=== PATIENT | female | born 1955 | race Caucasian/White ===

== ENCOUNTER 2016-12-18 10:25 | Emergency (ER) | payer MEDICARE, OTHER ==
[2016-12-18] MEDS ORDERED: Ondansetron 4 MG/2 ML SDV IVPUSH ONE (10:48)
[2016-12-18] MEDS ORDERED: Sodium Chloride 0.9% 10 ML Syringe FLUSH PRN (10:48)
[2016-12-18] MEDS ORDERED: HYDROmorphone 0.5 MG/0.5 ML Syringe IVPUSH ONE (10:53)
[2016-12-18 11:00] VITALS: BP 133/99
[2016-12-18] MEDS ORDERED: Sodium Chloride 0.9% 1,000 ML IV SCH (11:00)
--- NOTE | 2016-12-18 12:53 | EDM.PDOC ---
ED HPI GENERAL MEDICAL PROBLEM - General Chief Complaint: Lower Extremity Injury/Pain Stated Complaint: [facility] Time Seen by Provider: 12/18/16 10:36 Source of Information: Reports: Patient, Provider History Limitations: Reports: No Limitations - History of Present Illness INITIAL COMMENTS - FREE TEXT/NARRATIVE: The patient was brought in by EMS. She is a patient of the [facility]. They found her this morning on the floor. She is wheel chair bound and her chair was found in another room. The last time she was seen was last night. She was complaining of pain in both knees and right hip. She does not have a headache and she has no neck pain. She denies chest pain or abdominal pain. There has been changes to her psych medications and she has been more drowsy lately. They patient has chronic arthritic pain and she has seen Dr Burgos but she is not a candidate for surgery at this time. Onset: Sudden Duration: Day(s): (last night) Location: Reports: Lower Extremity, Left (knee), Lower Extremity, Right (hip and knee) Quality: Reports: Sharp Severity: Moderate Improves with: Reports: None Worsens with: Reports: None Associated Symptoms: Reports: No Other Symptoms Right Hip Pain Score (Numeric/FACES): 7 - Related Data Allergies Allergy/AdvReac Type Severity Reaction Status Date / Time codeine Allergy Mild Itching Verified 12/18/16 10:40 haloperidol [From Haldol] AdvReac Mild Facial Verified 12/18/16 10:40 Spasms lithium [[place]] AdvReac Mild Hallucinati Verified 12/18/16 10:40 ons Home Meds: Home Meds ClonazePAM [KlonoPIN] 0.5 mg PO BEDTIME PRN 10/17/13 [History] Gabapentin [Neurontin] 600 mg PO TID 10/17/13 [History] Potassium Chloride 10 meq PO DAILY 10/17/13 [History] traZODone 125 mg PO BEDTIME 10/17/13 [History] Cholecalciferol (Vitamin D3) [Vitamin D3] 400 unit PO DAILY 06/13/15 [History] oxyCODONE 5 mg PO Q4H PRN 06/13/15 [History] ARIPiprazole [Abilify] 20 mg PO DAILY 08/08/15 [History] Align 1 tab PO TID 08/08/15 [History] Benztropine [Cogentin] 0.5 mg PO BEDTIME 08/08/15 [History] Benztropine [Cogentin] 0.5 mg PO DAILY 08/08/15 [History] Diclofenac Sodium [Voltaren 1% Gel] 2 - 4 gm TOP BID 08/08/15 [History] Gabapentin [Neurontin] 1,200 mg PO BEDTIME 08/08/15 [History] Baclofen 10 mg PO BEDTIME 10/05/15 [History] ClonazePAM [KlonoPIN] 0.25 mg PO BID PRN 10/05/15 [History] Levothyroxine Sodium [Levoxyl] 175 mcg PO DAILY 10/05/15 [History] Lubiprostone [Amitiza] 24 mcg PO BIDMEALS 10/05/15 [History] Nitroglycerin [Nitrostat] 0.4 mg SL DAILY PRN 10/05/15 [History] Sennosides/Docusate Sodium [Senna-Docusate Sodium] 2 tab PO BEDTIME 10/05/15 [ History] Ascorbic Acid [Vitamin C] 500 mg PO TIDMEALS #90 tablet 10/22/15 [Rx] Ferrous Sulfate 325 mg PO TIDMEALS #90 tablet 10/22/15 [Rx] Past Medical History HEENT History: Reports: Cataract Other HEENT History: R eye surgery x 4, wears glasses Cardiovascular History: Reports: High Cholesterol, Hypertension Other Cardiovascular History: heart cath Gastrointestinal History: Reports: Gastritis Other Gastrointestinal History: epigastric pain, duodentitis Genitourinary History: Reports: Urinary Incontinence Other Genitourinary History: dysuria 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 Endocrine/Metabolic History: Reports: Hypothyroidism, Obesity/BMI 30+ Hematologic History: Reports: Anemia - Past Surgical History GI Surgical History: Reports: Cholecystectomy Social & Family History - Family History Family Medical History: Noncontributory Other HEENT Family History: Patient unable to report family medical history. - Tobacco Use Smoking Status *Q: Never Smoker Years of Tobacco use: 15 Packs/Tins Daily: 0.5 Used Tobacco, but Quit: Yes Month Tobacco Last Used: 2004 Second Hand Smoke Exposure: No - Caffeine Use Caffeine Use: Reports: Coffee - Alcohol Use Days Per Week of Alcohol Use: 1 Number of Drinks Per Day: 3 Total Drinks Per Week: 3 - Recreational Drug Use Recreational Drug Use: No Drug Use in Last 12 Months: No Review of Systems - Review of Systems Review Of Systems: See Below Constitutional: Reports: No Symptoms Eyes: Reports: No Symptoms Ears: Reports: No Symptoms Nose: Reports: No Symptoms Mouth/Throat: Reports: No Symptoms Respiratory: Reports: No Symptoms Cardiovascular: Reports: No Symptoms GI/Abdominal: Reports: No Symptoms Genitourinary: Reports: No Symptoms Musculoskeletal: Reports: Other (Right hip and knee pain and left knee pain) ED EXAM, GENERAL - Physical Exam Exam: See Below Exam Limited By: No Limitations General Appearance: Alert, No Apparent Distress Ears: Normal External Exam Nose: Normal Inspection Head: Atraumatic, Normocephalic Neck: Normal Inspection Respiratory/Chest: No Respiratory Distress, Lungs Clear, Normal Breath Sounds Cardiovascular: Regular Rate, Rhythm, No Edema, No Murmur GI/Abdominal: Soft, Non-Tender, No Organomegaly, No Mass Back Exam: Normal Inspection Extremities: Other (Pain upon palpation to both knees. Pain upon palpaton to the right hip. Good sensation and pusles distally.) Course - Vital Signs Last Recorded V/S: Last Vital Signs Temp 98.7 F 12/18/16 10:54 Pulse 71 12/18/16 10:54 Resp 20 12/18/16 10:54 BP 133/99 H 12/18/16 10:54 Pulse Ox 99 12/18/16 10:54 - Orders/Labs/Meds Orders: Active Orders 24 hr Category Date Time Status Cardiac Monitoring [RC] . DIRECTED Care 12/18/16 10:48 Active EKG Documentation Completion [RC] STAT Care 12/18/16 10:52 Active Peripheral IV Care [RC] . DIRECTED Care 12/18/16 10:49 Active Sodium Chloride 0.9% [Normal Saline] 1,000 ml Med 12/18/16 11:00 Active IV ASDIRECTED Sodium Chloride 0.9% [Saline Flush] Med 12/18/16 10:48 Active 10 ml FLUSH ASDIRECTED PRN ED Antiemetic Medication Reflex [OM.PC] Stat Oth 12/18/16 10:48 Ordered Peripheral IV Insertion Adult [OM.PC] Stat Ot 12/18/16 10:48 Ordered Medication Orders Sodium Chloride (Normal Saline) 1,000 mls @ 125 mls/hr IV ASDIRECTED KATHERIN Last Admin: 12/18/16 11:30 Dose: 125 mls/hr Sodium Chloride (Saline Flush) 10 ml FLUSH ASDIRECTED PRN PRN Reason: Keep Vein Open Last Admin: 12/18/16 11:31 Dose: 10 ml Labs: Laboratory Tests 12/18/16 12/18/16 12/18/16 Range/Units 11:38 11:38 11:50 WBC 10.98 H (3.98-10.04) K/mm3 RBC 4.51 (3.98-5.22) M/mm3 Hgb 13.1 (11.2-15.7) gm/L Hct 41.0 (34.1-44.9) % MCV 90.9 (79.4-94.8) fl MCH 29.0 (25.6-32.2) pg MCHC 32.0 L (32.2-35.5) g/dl RDW Std Deviation 50.2 H (36.4-46.3) fL Plt Count 308 (182-369) K/mm3 MPV 9.8 (9.4-12.3) fl Neut % (Auto) 73.8 H (34.0-71.1) % Lymph % (Auto) 18.6 L (19.3-51.7) % [place] % (Auto) 7.1 (4.7-12.5) % Eos % (Auto) 0 L (0.7-5.8) Baso % (Auto) 0.2 (0.1-1.2) % Neut # (Auto) 8.11 H (1.56-6.13) K/mm3 Lymph # (Auto) 2.04 (1.18-3.74) K/mm3 [place] # (Auto) 0.78 H (0.24-0.36) K/mm3 Eos # (Auto) 0.00 L (0.04-0.36) K/mm3 Baso # (Auto) 0.02 (0.01-0.08) K/mm3 Sodium 139 (136-145) mEq/L Potassium 3.6 (3.5-5.1) mEq/L Chloride 101 (98-107) mEq/L Carbon Dioxide 27 (21-32) mEq/L Anion Gap 14.6 (5-15) BUN 20 H (7-18) mg/dL Creatinine 0.8 (0.55-1.02) mg/dL Est Cr Clr Drug Dosing 68.13 mL/min Estimated GFR (MDRD) > 60 (>60) mL/min BUN/Creatinine Ratio 25.0 H (14-18) Glucose 82 (74-106) mg/dL Calcium 9.6 (8.5-10.1) mg/dL Total Bilirubin 0.4 (0.2-1.0) mg/dL AST 21 (15-37) U/L ALT 35 (14-59) U/L Alkaline Phosphatase 60 (46-116) U/L Troponin I < 0.017 (0.00-0.056) ng/mL Total Protein 8.0 (6.4-8.2) g/dl Albumin 2.8 L (3.4-5.0) g/dl Globulin 5.2 gm/dL Albumin/Globulin Ratio 0.5 L (1-2) Urine Color Yellow (Yellow) Urine Appearance Clear (Clear) Urine pH 7.5 (5.0-8.0) Ur Specific Patrick 1.020 (1.005-1.030) Urine Protein Negative (Negative) Urine Glucose (UA) Negative (Negative) Urine Ketones Trace H (Negative) Urine Occult Blood Negative (Negative) Urine Nitrite Negative (Negative) Urine Bilirubin Negative (Negative) Urine Urobilinogen 1.0 (0.2-1.0) Ur Leukocyte Esterase Negative (Negative) Urine RBC Not seen (0-5) /hpf Urine WBC Not seen (0-5) /hpf Ur Epithelial Cells 0-5 (0-5) /hpf Amorphous Sediment Many H (NOT SEEN) /hpf Urine Bacteria Not seen (FEW) /hpf Urine Mucus Not seen (FEW) /hpf Meds: Medications Generic Name Dose Route Start Last Admin Trade Name Freq PRN Reason Stop Dose Admin Sodium Chloride 1,000 mls @ 125 mls/hr 12/18/16 11:00 12/18/16 11:30 Normal Saline IV 125 mls/hr ASDIRECTED KATHERIN Administration Sodium Chloride 10 ml 12/18/16 10:48 12/18/16 11:31 Saline Flush FLUSH 10 ml ASDIRECTED PRN Administration Keep Vein Open Discontinued Medications Generic Name Dose Route Start Last Admin Trade Name Freq PRN Reason Stop Dose Admin Hydromorphone HCl 0.5 mg 12/18/16 10:53 12/18/16 11:31 Dilaudid IVPUSH 12/18/16 10:54 0.5 mg ONETIME ONE Administration Ondansetron HCl 4 mg 12/18/16 10:48 12/18/16 11:28 Zofran IVPUSH 12/18/16 10:49 4 mg ONETIME ONE Administration - Re-Assessments/Exams Free Text/Narrative Re-Assessment/Exam: 12/18/16 13:09 Her EKG shows a NSR at a rate of 70 with no acute changes. The x-ray of her knees shows degenerative changes with nothing acute seen. The x-ray of her right hip shows nothing acute. Her labs look good. Her UA shows no UTI. I will discharge her home. Departure - Departure Time of Disposition: 13:10 Disposition: Home, Self-Care 01 Condition: Good Clinical Impression: Osteoarthritis involving multiple joints on both sides of body Fall Qualifiers: Encounter type: initial encounter Qualified Code(s): W19.XXXA - Unspecified fall, initial encounter - Discharge Information Referrals: John Pierre MD [Primary Care Provider] - Forms: ED Department Discharge Additional Instructions: Continue with your medications. Follow up with your doctor. Please return if you are worse. - My Orders Last 24 Hours: My Active Orders 12/18/16 10:48 Cardiac Monitoring [RC] . DIRECTED Sodium Chloride 0.9% [Saline Flush] 10 ml FLUSH ASDIRECTED PRN ED Antiemetic Medication Reflex [OM.PC] Stat Peripheral IV Insertion Adult [OM.PC] Stat 12/18/16 10:49 Peripheral IV Care [RC] . DIRECTED 12/18/16 10:52 EKG Documentation Completion [RC] STAT 12/18/16 11:00 Sodium Chloride 0.9% [Normal Saline] 1,000 ml IV ASDIRECTED - Assessment/Plan Last 24 Hours: My Active Orders 12/18/16 10:48 Cardiac Monitoring [RC] . DIRECTED Sodium Chloride 0.9% [Saline Flush] 10 ml FLUSH ASDIRECTED PRN ED Antiemetic Medication Reflex [OM.PC] Stat Peripheral IV Insertion Adult [OM.PC] Stat 12/18/16 10:49 Peripheral IV Care [RC] . DIRECTED 12/18/16 10:52 EKG Documentation Completion [RC] STAT 12/18/16 11:00 Sodium Chloride 0.9% [Normal Saline] 1,000 ml IV ASDIRECTED
--- NOTE | 2016-12-18 12:54 | CR ---
Left knee: AP and lateral views of the left knee were obtained. Comparison: Previous left knee exam of 08/27/16. Severe medial and lateral joint space narrowing is noted. Osteophytes are seen off the medial tibial margin. Mild osteophytes are noted off the patella. Patellofemoral joint is narrowed. Osteopenia is seen. No acute fracture or dislocation is seen. Impression: 1. Degenerative change as noted above. Osteopenia is present. 2. Findings are fairly stable from prior exam. Nothing acute is identified. Diagnostic code #3
--- NOTE | 2016-12-18 12:54 | CR ---
Right knee: AP and lateral views of the right knee were obtained. Comparison: Previous right knee study of 08/17/16. Severe medial and lateral joint space narrowing is noted. Subchondral cysts are noted within the lateral joint. Osteophytes are noted off the medial and lateral joints. Osteopenia is seen. Mild osteophytes are noted off the patella. No fracture or dislocation is seen. Impression: 1. Degenerative change as noted above. No significant change is seen from prior exam. Nothing acute is identified. Diagnostic code #3
--- NOTE | 2016-12-18 12:54 | CR ---
Right hip and pelvis: AP view of the pelvis was obtained as well as AP and frog-leg lateral views of the right hip. Comparison: Previous pelvis exam of 03/15/12. Severe joint space narrowing is seen within both hips. This has progressed from prior exam. Degenerative cysts are seen within both hips, larger in size on the left side. Bony structures are osteopenic. Slight degenerative change within the lower lumbar spine is noted. No acute abnormality is noted. Impression: 1. Severe degenerative change within both hips. This finding has worsened from prior pelvis exam. 2. Other incidental findings. Nothing acute is appreciated. Diagnostic code #3
== END 2016-12-18 14:00 | disposition home or self-care (01) ==
LOC: JD.ED 10:25
DX: M19.90 Unspecified osteoarthritis, unspecified site (principal); Z87.891 Personal history of nicotine dependence; Z90.49 Acquired absence of other specified parts of digestive tract; Z86.2 Personal history of diseases of the blood and blood-forming organs and certain disorders involving the immune mechanism; E03.9 Hypothyroidism, unspecified; E66.9 Obesity, unspecified; I10 Essential (primary) hypertension; E78.00 Pure hypercholesterolemia, unspecified; F41.0 Panic disorder [episodic paroxysmal anxiety]; F31.9 Bipolar disorder, unspecified; Z88.5 Allergy status to narcotic agent; W19.XXXA Unspecified fall, initial encounter; Z88.8 Allergy status to other drugs, medicaments and biological substances; Z79.899 Other long term (current) drug therapy
CPT/HCPCS: 36415; 73502; 73560; 80053; 81001; 84484; 85025; 93005; 96361; 96374; 96375; 99285; J1170; J2405; J7040; J7050; P9612; 99283

== ENCOUNTER 2017-08-05 10:07 | Emergency (ER) | payer MEDICARE, MEDICAID ==
[2017-08-05 10:13] VITALS: BP 99/67
[2017-08-05] MEDS ORDERED: HYDROmorphone 1 MG/ML Syringe IM ONE (11:31)
--- NOTE | 2017-08-05 11:31 | EDM.PDOC ---
ED HPI GENERAL MEDICAL PROBLEM - General Chief Complaint: Lower Extremity Injury/Pain Stated Complaint: [facility] Time Seen by Provider: 08/05/17 11:21 Source of Information: Reports: Patient, Old Records History Limitations: Reports: No Limitations - History of Present Illness INITIAL COMMENTS - FREE TEXT/NARRATIVE: 62-year-old female arrives via [facility] for evaluation and treatment of knee pain. She has significant osteoarthritis to both knees. Currently the right knee is causing significant pain for her. She states that it the pain worsened last night. She has been seeing Dr. Burgos and is scheduled to have surgery for a right knee replacement with alfreda and [place]. She is currently on a significant amount of pain medications including fentanyl patch, hydrocodone twice a day, naproxen and gabapentin. She states that she has been using the fentanyl patch as she is currently wearing this but she is unsure what other pain medications she is on. She states that she "just takes whatever is in her box ". She is reporting significant pain in the right knee with radiation up into her thigh. No numbness or tingling in her leg. She also has chronic low back pain. No nausea, vomiting, fevers or chills. Patient uses a wheelchair for mobility around her home. No recent falls or trauma to the knees. Right Knee Pain Score (Numeric/FACES): 10 - Related Data Allergies Allergy/AdvReac Type Severity Reaction Status Date / Time codeine Allergy Mild Itching Verified 12/18/16 10:40 haloperidol [From Haldol] AdvReac Mild Facial Verified 12/18/16 10:40 Spasms lithium [[place]] AdvReac Mild Hallucinati Verified 12/18/16 10:40 ons Home Meds: Home Meds ClonazePAM [KlonoPIN] 0.5 mg PO BEDTIME PRN 10/17/13 [History] Gabapentin [Neurontin] 600 mg PO BID 10/17/13 [History] Potassium Chloride 10 meq PO DAILY 10/17/13 [History] traZODone 150 mg PO BEDTIME 10/17/13 [History] ARIPiprazole [Abilify] 10 mg PO DAILY 08/08/15 [History] Benztropine [Cogentin] 0.5 mg PO DAILY 08/08/15 [History] Benztropine [Cogentin] 0.5 mg PO QAM 08/08/15 [History] Gabapentin [Neurontin] 1,200 mg PO BEDTIME 08/08/15 [History] ClonazePAM [KlonoPIN] 0.5 mg PO TID PRN 10/05/15 [History] Levothyroxine Sodium [Levoxyl] 175 mcg PO DAILY 10/05/15 [History] Lubiprostone [Amitiza] 24 mcg PO BIDMEALS 10/05/15 [History] Nitroglycerin [Nitrostat] 0.4 mg SL DAILY PRN 10/05/15 [History] Sennosides/Docusate Sodium [Senna-Docusate Sodium] 1 tab PO BID 10/05/15 [ History] Alendronate Sodium [Alendronate] 70 mg PO DAILY 08/05/17 [History] Cyclobenzaprine [Flexeril] 10 mg PO BEDTIME 08/05/17 [History] Ferrous Sulfate 325 mg PO BID 08/05/17 [History] Folic Acid 1 mg PO DAILY 08/05/17 [History] Hydrocodone/Acetaminophen [Hydrocodon-Acetaminophen 5-325] 1 tab PO BID [History] Naproxen 375 mg PO BID PRN 08/05/17 [History] Pantoprazole [ProTONIX] 40 mg PO DAILY 08/05/17 [History] Vortioxetine Hydrobromide [Trintellix] 20 mg PO DAILY 08/05/17 [History] fentaNYL [Duragesic] 1 patch TOP Q72H 08/05/17 [History] Past Medical History HEENT History: Reports: Cataract Other HEENT History: R eye surgery x 4, wears glasses Cardiovascular History: Reports: High Cholesterol, Hypertension Other Cardiovascular History: heart cath Respiratory History: Reports: Sleep Apnea Gastrointestinal History: Reports: Gastritis Other Gastrointestinal History: epigastric pain, duodentitis Genitourinary History: Reports: Urinary Incontinence Other Genitourinary History: dysuria 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 Endocrine/Metabolic History: Reports: Hypothyroidism, Obesity/BMI 30+ Hematologic History: Reports: Anemia - Past Surgical History GI Surgical History: Reports: Cholecystectomy Social & Family History - Family History Family Medical History: Noncontributory Other HEENT Family History: Patient unable to report family medical history. - Tobacco Use Smoking Status *Q: Never Smoker Years of Tobacco use: 15 Packs/Tins Daily: 0.5 Used Tobacco, but Quit: Yes Month Tobacco Last Used: 2004 Second Hand Smoke Exposure: No - Caffeine Use Caffeine Use: Reports: Soda - Alcohol Use Days Per Week of Alcohol Use: 1 Number of Drinks Per Day: 3 Total Drinks Per Week: 3 - Recreational Drug Use Recreational Drug Use: No Drug Use in Last 12 Months: No Review of Systems - Review of Systems Review Of Systems: See Below Constitutional: Denies: Chills, Fever GI/Abdominal: Denies: Nausea, Vomiting Musculoskeletal: Reports: Back Pain (chronic), Leg Pain (right), Joint Pain ( bilateral knees, R>L) Neurological: Denies: Numbness, Tingling ED EXAM, GENERAL - Physical Exam Exam: See Below Exam Limited By: No Limitations General Appearance: Alert, WD/WN, Mild Distress, Obese Respiratory/Chest: No Respiratory Distress, Lungs Clear, Normal Breath Sounds Cardiovascular: Normal Peripheral Pulses, Regular Rate, Rhythm, No Murmur Peripheral Pulses: 2+: Posterior Tibial (L), Posterior Tibial (R), Dorsalis Pedis (L), Dorsalis Pedis (R) Extremities: Normal Inspection, Normal Capillary Refill, Other (Reports significant pain even with light touch of the right knee. Range of motion testing deferred due to pain.). No: Joint Swelling, Increased Warmth Neurological: Alert, Normal Cognition Psychiatric: Normal Affect, Normal Mood Skin Exam: Warm, Dry, Normal Color Course - Vital Signs Last Recorded V/S: Last Vital Signs Temp 37.3 C 08/05/17 10:10 Pulse 77 08/05/17 10:10 Resp 18 08/05/17 10:10 BP 99/67 08/05/17 10:10 Pulse Ox 97 08/05/17 10:10 - Orders/Labs/Meds Meds: Medications Discontinued Medications Generic Name Dose Route Start Last Admin Trade Name Freq PRN Reason Stop Dose Admin Hydromorphone HCl 0.5 mg 08/05/17 11:31 Dilaudid IM 08/05/17 11:32 ONETIME ONE Hydromorphone HCl 0.5 mg 08/05/17 11:37 08/05/17 11:46 Dilaudid IVPUSH 08/05/17 11:38 0.5 mg ONETIME ONE Administration Ketorolac Tromethamine 30 mg 08/05/17 11:30 08/05/17 11:43 Toradol IM 08/05/17 11:31 30 mg ONETIME ONE Administration Lidocaine 700 mg 08/05/17 12:33 08/05/17 12:38 Lidoderm 5% TOP 08/05/17 12:34 700 mg ONETIME ONE Administration - Re-Assessments/Exams Free Text/Narrative Re-Assessment/Exam: 08/05/17 12:43 Patient reports her pain is currently a 7 on 10. Per nursing staff. We just applied a lidocaine patch for additional pain relief. consider option of starting her on some prednisone. Do not feel she is a very good candidate for prednisone but given that she is on a significant amount of narcotics already I am hesitant to increase any of her narcotics at this time. She does have follow- up with her primary care on Thursday. 08/05/17 14:01 Patient feels better at this point. We will discharge home. Discharge instructions as documented. Departure - Departure Time of Disposition: 14:02 Disposition: Home, Self-Care 01 Condition: Fair Clinical Impression: Knee pain, Osteoarthritis of knee - Discharge Information Instructions: Knee Pain, Adult Referrals: John Pierre MD [Primary Care Provider] - Jalen Armstrong MD [Physician] - Forms: ED Department Discharge Additional Instructions: Continue with your current medications and plan of care. If you are due for a cortisone shot in your knee make sure you schedule an appointment to have one of these. Follow-up with your primary care provider Thursday as planned. You may wear the lidocaine patch for the next 12 hours. Take this off around 10 PM tonight. Please return to the ER if your symptoms change or worsen.
[2017-08-05] MEDS: Ketorolac 30 MG/ML SDV IM ONE (11:43)
[2017-08-05] MEDS: HYDROmorphone 0.5 MG/0.5 ML SYRINGE IVPUSH ONE (11:46)
[2017-08-05] MEDS: Lidocaine 5% 700 MG Patch TOP ONE (12:38)
== END 2017-08-05 14:41 | disposition home or self-care (01) ==
LOC: JD.ED 10:07
DX: M17.11 Unilateral primary osteoarthritis, right knee (principal); E78.00 Pure hypercholesterolemia, unspecified; I10 Essential (primary) hypertension; E03.9 Hypothyroidism, unspecified; Z88.5 Allergy status to narcotic agent; Z88.8 Allergy status to other drugs, medicaments and biological substances; Z79.899 Other long term (current) drug therapy; Z87.891 Personal history of nicotine dependence
CPT/HCPCS: 96372; 99284; A9270; J1170; J1885

== ENCOUNTER 2017-09-06 19:59 | Emergency (ER) | payer MEDICARE, MEDICAID ==
[2017-09-06 20:09] VITALS: BP 100/52
[2017-09-06] MEDS ORDERED: Ketorolac 60 MG/2 ML SDV IM ONE (21:30)
[2017-09-06] MEDS ORDERED: HYDROmorphone 1 MG/ML Syringe IM ONE (21:30)
--- NOTE | 2017-09-06 21:31 | EDM.PDOC ---
ED HPI GENERAL MEDICAL PROBLEM - General Chief Complaint: Lower Extremity Injury/Pain Stated Complaint: [facility] Time Seen by Provider: 09/06/17 21:20 Source of Information: Reports: Patient, EMS History Limitations: Reports: No Limitations - History of Present Illness INITIAL COMMENTS - FREE TEXT/NARRATIVE: 62-year-old female presents for evaluation treatment of knee pain. Patient arrives via [facility] ambulance [facility]. No treatment prior to arrival. She describes a fall but is unable to tell me exactly when it occurred. At first she 's states it was a couple days ago than it was yesterday evening and it was before she was seen last time in the ER. She denies any head trauma. No headaches, nausea or vomiting. She is currently complaining of pain to her bilateral hips, groin, bilateral knees and low back. patient has a history of osteoarthritis is scheduled to have a knee replacement in the near future with Dr. Burgos. She is currently on a fentanyl patch, gabapentin and pain medications for this. Patient primarily uses a wheelchair to get around due to her knee pain. Patient is a poor historian. Location: Reports: Back, Pelvis, Lower Extremity, Left, Lower Extremity, Right Hip Pain Score (Numeric/FACES): 9 - Related Data Allergies Allergy/AdvReac Type Severity Reaction Status Date / Time codeine Allergy Mild Itching Verified 09/06/17 20:01 haloperidol [From Haldol] AdvReac Mild Facial Verified 09/06/17 20:01 Spasms lithium [[place]] AdvReac Mild Hallucinati Verified 09/06/17 20:01 ons Home Meds: Home Meds Potassium Chloride 10 meq PO DAILY 10/17/13 [History] traZODone 150 mg PO BEDTIME 10/17/13 [History] ARIPiprazole [Abilify] 10 mg PO DAILY 08/08/15 [History] Benztropine [Cogentin] 0.5 mg PO BID 08/08/15 [History] Gabapentin [Neurontin] 1,200 mg PO BID 08/08/15 [History] ClonazePAM [KlonoPIN] 0.5 mg PO TID PRN 10/05/15 [History] Levothyroxine Sodium [Levoxyl] 175 mcg PO DAILY 10/05/15 [History] Lubiprostone [Amitiza] 24 mcg PO BIDMEALS 10/05/15 [History] Nitroglycerin [Nitrostat] 0.4 mg SL DAILY PRN 10/05/15 [History] Sennosides/Docusate Sodium [Senna-Docusate Sodium] 1 tab PO BID 10/05/15 [ History] Alendronate Sodium [Alendronate] 70 mg PO WEEKLY 08/05/17 [History] Cyclobenzaprine [Flexeril] 10 mg PO BEDTIME 08/05/17 [History] Ferrous Sulfate 325 mg PO BID 08/05/17 [History] Folic Acid 1 mg PO DAILY 08/05/17 [History] Hydrocodone/Acetaminophen [Hydrocodon-Acetaminophen 5-325] 1 tab PO BID PRN [History] Naproxen 375 mg PO BID PRN 08/05/17 [History] Pantoprazole [ProTONIX] 40 mg PO DAILY 08/05/17 [History] Vortioxetine Hydrobromide [Trintellix] 20 mg PO DAILY 08/05/17 [History] fentaNYL [Duragesic] 1 patch TOP Q72H 08/05/17 [History] Past Medical History HEENT History: Reports: Cataract Other HEENT History: R eye surgery x 4, wears glasses Cardiovascular History: Reports: High Cholesterol, Hypertension Other Cardiovascular History: heart cath Respiratory History: Reports: Sleep Apnea Gastrointestinal History: Reports: Gastritis Other Gastrointestinal History: epigastric pain, duodentitis Genitourinary History: Reports: Urinary Incontinence Other Genitourinary History: dysuria 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 Endocrine/Metabolic History: Reports: Hypothyroidism, Obesity/BMI 30+ Hematologic History: Reports: Anemia - Past Surgical History GI Surgical History: Reports: Cholecystectomy Social & Family History - Family History Family Medical History: Noncontributory Other HEENT Family History: Patient unable to report family medical history. - Tobacco Use Smoking Status *Q: Never Smoker Years of Tobacco use: 15 Packs/Tins Daily: 0.5 Used Tobacco, but Quit: Yes Month/Year Tobacco Last Used: 2004 Second Hand Smoke Exposure: No - Caffeine Use Caffeine Use: Reports: Coffee, Soda, Tea Other Caffeine Use: occassionally - Alcohol Use Days Per Week of Alcohol Use: 1 Number of Drinks Per Day: 3 Total Drinks Per Week: 3 - Recreational Drug Use Recreational Drug Use: No Drug Use in Last 12 Months: No Review of Systems - Review of Systems Review Of Systems: See Below GI/Abdominal: Denies: Nausea, Vomiting Musculoskeletal: Reports: Back Pain, Joint Pain (bilateral knee pain), Other ( reports bilateral hip and bilateral groin pain) Neurological: Denies: Headache, Syncope ED EXAM, GENERAL - Physical Exam Exam: See Below Exam Limited By: No Limitations General Appearance: Alert, WD/WN, No Apparent Distress, Obese Respiratory/Chest: No Respiratory Distress, Lungs Clear, Normal Breath Sounds Cardiovascular: Normal Peripheral Pulses, Regular Rate, Rhythm, No Murmur Peripheral Pulses: 2+: Dorsalis Pedis (L), Dorsalis Pedis (R) Back Exam: Normal Inspection. No: Paraspinal Tenderness, Vertebral Tenderness Extremities: Normal Inspection, Normal Capillary Refill, Other (joint effusions to thebilateral knees, no obvious deformity, chronic arthritic chagnes to the bilateral knees, reduced flexion and extenesion - knees flexed at 90 degrees pain with any ROM of the knees; no pain with rotation of t he bilateral hips). No: Increased Warmth, Redness Neurological: Alert, Oriented, Normal Cognition Psychiatric: Normal Affect, Normal Mood Skin Exam: Warm, Dry, Normal Color. No: Erythema, Increased Warmth Course - Vital Signs Last Recorded V/S: Last Vital Signs Temp 36.4 C 09/06/17 20:04 Pulse 81 09/06/17 20:04 Resp 18 09/06/17 20:04 BP 100/52 L 09/06/17 20:04 Pulse Ox 97 09/06/17 20:04 - Orders/Labs/Meds Meds: Medications Discontinued Medications Generic Name Dose Route Start Last Admin Trade Name Freq PRN Reason Stop Dose Admin Hydromorphone HCl 1 mg 09/06/17 21:30 Dilaudid IM 09/06/17 21:31 ONETIME ONE Hydromorphone HCl Confirm 09/06/17 21:50 09/06/17 21:51 Dilaudid Administered 09/06/17 21:51 Not Given Dose 1 mg .ROUTE .STK-MED ONE Hydromorphone HCl 1 mg 09/06/17 21:50 09/06/17 21:51 Dilaudid IM 09/06/17 21:51 1 mg ONETIME ONE Administration Ketorolac Tromethamine 60 mg 09/06/17 21:30 09/06/17 21:47 Toradol IM 09/06/17 21:31 60 mg ONETIME ONE Administration - Re-Assessments/Exams Free Text/Narrative Re-Assessment/Exam: 09/06/17 22:53 I reviewed the imaging with the patient. No acute fractures. Chronic arthritic changes in the lumbar spine, bilateral knees and bilateral hips. Recommend continuing on the pain medication as prescribed. Discuss with your pain clinic if you need adjustments. pain has improved with medication today. discharge instructions as documented. Departure - Departure Time of Disposition: 22:57 Disposition: Home, Self-Care 01 Condition: Fair Clinical Impression: Osteoarthritis involving multiple joints on both sides of body - Discharge Information Instructions: Osteoarthritis Referrals: PCP,None [Primary Care Provider] - Jalen Armstrong MD [Physician] - Forms: ED Department Discharge Additional Instructions: Continue with your current plan of care. Continue with your pain medications. Consult your pain specialist if you need an increase in these. Follow-up with your primary care provider within 2 weeks for recheck of your symptoms. Please return to the ER if your symptoms change or worsen.
[2017-09-06] MEDS ORDERED: HYDROmorphone 0.5 MG/0.5 ML SYRINGE ONE (21:50)
[2017-09-06] MEDS ORDERED: HYDROmorphone 0.5 MG/0.5 ML SYRINGE IM ONE (21:50)
--- NOTE | 2017-09-07 09:33 | CR ---
Right knee: AP and lateral views of the right knee were obtained. Comparison: Previous right knee exam of 12/18/16. Severe medial and lateral joint space narrowing is seen. Osteophytes are noted off medial and lateral joints as well as osteophytes off the patella. No discrete joint effusion is seen. Osteopenia is present. No definite acute bony abnormality is appreciated. Impression: 1. Degenerative change and osteopenia. 2. Nothing acute is definitely seen. Diagnostic code #3
--- NOTE | 2017-09-07 09:33 | CR ---
Lumbar spine: AP, lateral and coned-down lateral views centered to the lumbosacral junction were obtained. Comparison: Prior CT lumbar spine exam of 03/22/14. Mild disc space narrowing is noted at L3-L4 and L5-S1. Posterior disc space narrowing noted at L4-L5. Scattered endplate osteophytes are seen. Vertebral body heights are maintained. Pedicles as well as visualized transverse and spinous processes are intact. Surgical clips are seen within the upper abdomen on both sides. No fracture or abnormal subluxation is seen. Impression: 1. Degenerative change as noted above. Findings are fairly stable from previous CT exam. 2. Nothing acute is appreciated. Diagnostic code #2
--- NOTE | 2017-09-07 09:33 | CR ---
Pelvis: AP view of the pelvis was obtained. Comparison: Previous pelvis and right hip study of 12/18/16. Severe joint space narrowing is noted within both hips. Findings worse on the right side. Degenerative cysts are noted within the right femoral head. Bony structures are osteopenic. No acute abnormality is appreciated. Impression: 1. Degenerative change is noted within both hips and osteopenia. 2. Nothing acute is appreciated. Diagnostic code #3
--- NOTE | 2017-09-07 09:33 | CR ---
Left knee: AP and lateral views of the left knee were obtained. Comparison: Previous left knee exam of 12/18/16. Severe medial and lateral joint space narrowing is noted. Osteophytes are seen off the medial and lateral tibial margins. Osteophytes are noted about the patellar margins. Bony structures are osteoporotic. Joint effusion is seen. No acute bony abnormality is identified. Impression: 1. Diffuse degenerative change and osteopenia. 2. Joint effusion. 3. No acute bony abnormality is appreciated. Diagnostic code #3
== END 2017-09-06 23:03 | disposition home or self-care (01) ==
LOC: JD.ED 19:59
DX: M17.0 Bilateral primary osteoarthritis of knee (principal); M16.0 Bilateral primary osteoarthritis of hip; M47.9 Spondylosis, unspecified; I10 Essential (primary) hypertension; E78.00 Pure hypercholesterolemia, unspecified; Z87.891 Personal history of nicotine dependence; Z79.899 Other long term (current) drug therapy; Z88.5 Allergy status to narcotic agent; Z88.8 Allergy status to other drugs, medicaments and biological substances
CPT/HCPCS: 72100; 72170; 73560; 96372; 99284; J1170; J1885; 99283

== ENCOUNTER 2017-09-28 08:57 | Emergency (ER) | payer MEDICARE, MEDICAID ==
[2017-09-28 09:03] VITALS: BP 132/99
[2017-09-28] MEDS ORDERED: Sodium Chloride 0.9% 10 ML Syringe FLUSH PRN (09:06)
--- NOTE | 2017-09-28 09:07 | EDM.PDOC ---
ED HPI GENERAL MEDICAL PROBLEM - General Chief Complaint: Gastrointestinal Problem Stated Complaint: [facility] Time Seen by Provider: 09/28/17 10:00 Source of Information: Reports: Patient, RN Notes Reviewed - History of Present Illness INITIAL COMMENTS - FREE TEXT/NARRATIVE: 8-year-old female comes in with abdominal pain nausea vomiting diarrhea. She states this all started about 34 days ago. He continues to have frequent watery diarrhea after eating or drinking. She's not been vomiting this morning but continues to feel nauseated. And vomiting some the last couple of days off and on. Generalized abdominal pain and cramping. No cough, chest pain or difficulty breathing. She states there has been some blood with the diarrhea. Abdominal Pain Score (Numeric/FACES): 7 - Related Data Allergies Allergy/AdvReac Type Severity Reaction Status Date / Time codeine Allergy Mild Itching Verified 09/28/17 09:03 haloperidol [From Haldol] AdvReac Mild Facial Verified 09/28/17 09:03 Spasms lithium [[place]] AdvReac Mild Hallucinati Verified 09/28/17 09:03 ons Home Meds: Home Meds Potassium Chloride 10 meq PO DAILY 10/17/13 [History] traZODone 150 mg PO BEDTIME 10/17/13 [History] ARIPiprazole [Abilify] 10 mg PO DAILY 08/08/15 [History] Benztropine [Cogentin] 0.5 mg PO BID 08/08/15 [History] Gabapentin [Neurontin] 1,200 mg PO BID 08/08/15 [History] ClonazePAM [KlonoPIN] 0.5 mg PO TID PRN 10/05/15 [History] Levothyroxine Sodium [Levoxyl] 175 mcg PO DAILY 10/05/15 [History] Lubiprostone [Amitiza] 24 mcg PO BIDMEALS 10/05/15 [History] Nitroglycerin [Nitrostat] 0.4 mg SL DAILY PRN 10/05/15 [History] Sennosides/Docusate Sodium [Senna-Docusate Sodium] 1 tab PO BID 10/05/15 [ History] Alendronate Sodium [Alendronate] 70 mg PO WEEKLY 08/05/17 [History] Cyclobenzaprine [Flexeril] 10 mg PO BEDTIME 08/05/17 [History] Ferrous Sulfate 325 mg PO BID 08/05/17 [History] Folic Acid 1 mg PO DAILY 08/05/17 [History] Hydrocodone/Acetaminophen [Hydrocodon-Acetaminophen 5-325] 1 tab PO BID PRN [History] Naproxen 375 mg PO BID PRN 08/05/17 [History] Pantoprazole [ProTONIX] 40 mg PO DAILY 08/05/17 [History] Vortioxetine Hydrobromide [Trintellix] 20 mg PO DAILY 08/05/17 [History] fentaNYL [Duragesic] 1 patch TOP Q72H 08/05/17 [History] Ondansetron [Zofran ODT] 4 mg PO Q8HR PRN #7 tab.dis 09/28/17 [Rx] Past Medical History HEENT History: Reports: Cataract Other HEENT History: R eye surgery x 4, wears glasses Cardiovascular History: Reports: High Cholesterol, Hypertension Other Cardiovascular History: heart cath Respiratory History: Reports: Sleep Apnea Gastrointestinal History: Reports: Gastritis Other Gastrointestinal History: epigastric pain, duodentitis Genitourinary History: Reports: Urinary Incontinence Other Genitourinary History: dysuria 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 Endocrine/Metabolic History: Reports: Hypothyroidism, Obesity/BMI 30+ Hematologic History: Reports: Anemia - Past Surgical History GI Surgical History: Reports: Cholecystectomy Social & Family History - Family History Family Medical History: Noncontributory Other HEENT Family History: Patient unable to report family medical history. - Tobacco Use Smoking Status *Q: Never Smoker Years of Tobacco use: 15 Packs/Tins Daily: 0.5 Used Tobacco, but Quit: Yes Month/Year Tobacco Last Used: 2004 Second Hand Smoke Exposure: No - Caffeine Use Caffeine Use: Reports: Coffee, Soda, Tea Other Caffeine Use: occassionally - Alcohol Use Days Per Week of Alcohol Use: 1 Number of Drinks Per Day: 3 Total Drinks Per Week: 3 - Recreational Drug Use Recreational Drug Use: No Drug Use in Last 12 Months: No ED ROS GENERAL - Review of Systems Review Of Systems: See Below Constitutional: Reports: Chills. Denies: Fever HEENT: Denies: Throat Pain Respiratory: Denies: Shortness of Breath, Pleuritic Chest Pain Cardiovascular: Denies: Chest Pain GI/Abdominal: Reports: Abdominal Pain, Diarrhea, Nausea, Vomiting Musculoskeletal: Reports: Joint Pain (Her right knee has been giving her trouble for quite some time, states she is scheduled for an injection tomorrow) Skin: Reports: No Symptoms Neurological: Reports: Dizziness (Mild). Denies: Trouble Speaking ED EXAM, GI/ABD - Physical Exam Exam: See Below General Appearance: Alert, No Apparent Distress Throat/Mouth: Normal Inspection, Normal Oropharynx Head: Atraumatic. No: Facial Swelling Neck: Supple, Full Range of Motion Respiratory/Chest: No Respiratory Distress, Lungs Clear, Normal Breath Sounds Cardiovascular: Regular Rate, Rhythm GI/Abdominal Exam: Soft, Tender (Mild diffuse tenderness, no guarding or rebound ) Rectal (Female) Exam: Other (Trace of brown stool present, heme-negative) Back Exam: No: CVA Tenderness (L), CVA Tenderness (R) Extremities: Normal Inspection, Normal Range of Motion, Other (Knee nontender, not warm swollen or erythematous, mild pain with motion). No: Leg Pain Neurological: Alert, No Motor/Sensory Deficits Skin Exam: Warm, Dry, Normal Color Course - Vital Signs Last Recorded V/S: Last Vital Signs Temp 98.8 F 09/28/17 09:00 Pulse 98 09/28/17 09:00 Resp 17 09/28/17 09:00 BP 132/99 H 09/28/17 09:00 Pulse Ox 95 09/28/17 09:00 - Orders/Labs/Meds Orders: Active Orders 24 hr Category Date Time Status Peripheral IV Care [RC] . DIRECTED Care 09/28/17 09:07 Active Peripheral IV Insertion Adult [OM.PC] Stat Oth 09/28/17 09:06 Ordered Labs: Laboratory Tests 09/28/17 09/28/17 Range/Units 09:10 09:10 WBC 10.36 H (3.98-10.04) K/mm3 RBC 4.69 (3.98-5.22) M/mm3 Hgb 11.5 (11.2-15.7) gm/L Hct 38.8 (34.1-44.9) % MCV 82.7 (79.4-94.8) fl MCH 24.5 L (25.6-32.2) pg MCHC 29.6 L (32.2-35.5) g/dl RDW Std Deviation 53.7 H (36.4-46.3) fL Plt Count 435 H (182-369) K/mm3 MPV 10.1 (9.4-12.3) fl Neut % (Auto) 70.8 (34.0-71.1) % Lymph % (Auto) 22.5 (19.3-51.7) % [place] % (Auto) 5.7 (4.7-12.5) % Eos % (Auto) 0.4 L (0.7-5.8) Baso % (Auto) 0.3 (0.1-1.2) % Neut # (Auto) 7.34 H (1.56-6.13) K/mm3 Lymph # (Auto) 2.33 (1.18-3.74) K/mm3 [place] # (Auto) 0.59 H (0.24-0.36) K/mm3 Eos # (Auto) 0.04 (0.04-0.36) K/mm3 Baso # (Auto) 0.03 (0.01-0.08) K/mm3 Manual Slide Review Normal smear Sodium 138 (136-145) mEq/L Potassium 3.4 L (3.5-5.1) mEq/L Chloride 102 (98-107) mEq/L Carbon Dioxide 24 (21-32) mEq/L Anion Gap 15.4 H (5-15) BUN 14 (7-18) mg/dL Creatinine 0.7 (0.55-1.02) mg/dL Est Cr Clr Drug Dosing 76.90 mL/min Estimated GFR (MDRD) > 60 (>60) mL/min BUN/Creatinine Ratio 20.0 H (14-18) Glucose 113 H (74-106) mg/dL Calcium 9.8 (8.5-10.1) mg/dL Total Bilirubin 0.3 (0.2-1.0) mg/dL AST 14 L (15-37) U/L ALT 12 L (14-59) U/L Alkaline Phosphatase 69 (46-116) U/L Total Protein 8.2 (6.4-8.2) g/dl Albumin 2.8 L (3.4-5.0) g/dl Globulin 5.4 gm/dL Albumin/Globulin Ratio 0.5 L (1-2) Meds: Medications Discontinued Medications Generic Name Dose Route Start Last Admin Trade Name Freq PRN Reason Stop Dose Admin Famotidine 20 mg 09/28/17 09:33 09/28/17 09:40 Pepcid IVPUSH 09/28/17 09:34 20 mg ONETIME ONE Administration Sodium Chloride 1,000 mls @ 999 mls/hr 09/28/17 09:15 09/28/17 09:26 Normal Saline IV 999 mls/hr ONETIME KATHERIN Administration Ondansetron HCl 4 mg 09/28/17 09:33 09/28/17 09:40 Zofran IVPUSH 09/28/17 09:34 4 mg ONETIME ONE Administration Sodium Chloride 10 ml 09/28/17 09:06 09/28/17 09:26 Saline Flush FLUSH 10 ml ASDIRECTED PRN Administration Keep Vein Open - Re-Assessments/Exams Free Text/Narrative Re-Assessment/Exam: 09/28/17 13:15. Labs all came back relatively normal. We did give 1 L of normal saline and also Zofran 4 mg IV. There's been no further vomiting while here in the ED. I also not aware of any further diarrhea. On rectal exam as noted there is just a trace of brown stool, heme-negative. No gross blood. She was feeling better after the IV fluid and meds. She feels up to going home. Discharge instructions as documented. Departure - Departure Time of Disposition: 11:47 Disposition: Home, Self-Care 01 Condition: Fair Clinical Impression: Diarrhea Vomiting Qualifiers: Vomiting type: unspecified Vomiting Intractability: non-intractable Nausea presence: with nausea Qualified Code(s): R11.2 - Nausea with vomiting, unspecified - Discharge Information Prescriptions: Ondansetron [Zofran ODT] 4 mg PO Q8HR PRN #7 tab.dis PRN Reason: Nausea/Vomiting Instructions: Diarrhea, Adult, Vomiting, Adult Referrals: PCP,None [Primary Care Provider] - Forms: ED Department Discharge Additional Instructions: Rest, clear liquids until this evening, then very careful bland diet as tolerated, Zofran dissolvable under the tongue if needed for any further nausea or vomiting, begin probiotic, take that 2 or 3 times daily for the next week to help you recover from the diarrhea more quickly, follow-up clinic if not much better within 2-3 days as expected, return to ED as needed if symptoms worsening in any way. - My Orders Last 24 Hours: My Active Orders 09/28/17 09:06 Peripheral IV Insertion Adult [OM.PC] Stat 09/28/17 09:07 Peripheral IV Care [RC] . DIRECTED - Assessment/Plan Last 24 Hours: My Active Orders 09/28/17 09:06 Peripheral IV Insertion Adult [OM.PC] Stat 09/28/17 09:07 Peripheral IV Care [RC] . DIRECTED
[2017-09-28] MEDS ORDERED: Sodium Chloride 0.9% 1,000 ML IV SCH (09:15)
[2017-09-28] MEDS ORDERED: Ondansetron 4 MG/2 ML SDV IVPUSH ONE (09:33)
[2017-09-28] MEDS ORDERED: Famotidine 20 MG/2 ML SDV IVPUSH ONE (09:33)
== END 2017-09-28 12:32 | disposition home or self-care (01) ==
LOC: JD.ED 08:57
DX: R11.2 Nausea with vomiting, unspecified (principal); R19.7 Diarrhea, unspecified; E78.00 Pure hypercholesterolemia, unspecified; I10 Essential (primary) hypertension; E03.9 Hypothyroidism, unspecified; D64.9 Anemia, unspecified; Z88.5 Allergy status to narcotic agent; Z88.8 Allergy status to other drugs, medicaments and biological substances; Z91.048 Other nonmedicinal substance allergy status; Z79.899 Other long term (current) drug therapy; Z90.49 Acquired absence of other specified parts of digestive tract
CPT/HCPCS: 36415; 80053; 85025; 96361; 96374; 96375; 99284; J2405; J7040; J7050

== ENCOUNTER 2018-02-13 12:02 | Emergency (ER) | payer MEDICARE, MEDICAID ==
[2018-02-13 12:08] VITALS: BP 131/73
--- NOTE | 2018-02-13 12:39 | EDM.PDOC ---
ED HPI GENERAL MEDICAL PROBLEM - General Chief Complaint: Upper Extremity Injury/Pain Stated Complaint: [facility] Time Seen by Provider: 02/13/18 12:09 Source of Information: Reports: Patient History Limitations: Reports: No Limitations - History of Present Illness INITIAL COMMENTS - FREE TEXT/NARRATIVE: 62-year-old female history of arthritis presenting with a ground-level mechanical fall. Patient has very severe arthritis and difficulty and bleeding at home so she uses a wheelchair. she went to sit down in a wheelchair today brakes were not on it rolled backwards and she fell onto her bottom. After the fall she noted immediate onset of right hip and right shoulder pain. She had a life alert which alerted EMS. In route she received 1 mg of Dilaudid IV by from EMS. Patient is currently complaining of mild to moderate right hip and shoulder pain exacerbated by movement palliative by rest she denies any numbness or tingling in the extremities distal to the injuries. - Related Data Allergies Allergy/AdvReac Type Severity Reaction Status Date / Time codeine Allergy Mild Itching Verified 09/28/17 09:03 haloperidol [From Haldol] AdvReac Mild Facial Verified 09/28/17 09:03 Spasms lithium [[place]] AdvReac Mild Hallucinati Verified 09/28/17 09:03 ons Home Meds: Home Meds Potassium Chloride 10 meq PO DAILY 10/17/13 [History] traZODone 150 mg PO BEDTIME 10/17/13 [History] ARIPiprazole [Abilify] 10 mg PO DAILY 08/08/15 [History] Benztropine [Cogentin] 0.5 mg PO BID 08/08/15 [History] Gabapentin [Neurontin] 1,200 mg PO BID 08/08/15 [History] ClonazePAM [KlonoPIN] 0.5 mg PO TID PRN 10/05/15 [History] Levothyroxine Sodium [Levoxyl] 175 mcg PO DAILY 10/05/15 [History] Lubiprostone [Amitiza] 24 mcg PO BIDMEALS 10/05/15 [History] Nitroglycerin [Nitrostat] 0.4 mg SL DAILY PRN 10/05/15 [History] Sennosides/Docusate Sodium [Senna-Docusate Sodium] 1 tab PO BID 10/05/15 [ History] Alendronate Sodium [Alendronate] 70 mg PO WEEKLY 08/05/17 [History] Cyclobenzaprine [Flexeril] 10 mg PO BEDTIME 08/05/17 [History] Ferrous Sulfate 325 mg PO BID 08/05/17 [History] Folic Acid 1 mg PO DAILY 08/05/17 [History] Hydrocodone/Acetaminophen [Hydrocodon-Acetaminophen 5-325] 1 tab PO BID PRN [History] Naproxen 375 mg PO BID PRN 08/05/17 [History] Pantoprazole [ProTONIX] 40 mg PO DAILY 08/05/17 [History] Vortioxetine Hydrobromide [Trintellix] 20 mg PO DAILY 08/05/17 [History] fentaNYL [Duragesic] 1 patch TOP Q72H 08/05/17 [History] Ondansetron [Zofran ODT] 4 mg PO Q8HR PRN #7 tab.dis 09/28/17 [Rx] Past Medical History HEENT History: Reports: Cataract Other HEENT History: R eye surgery x 4, wears glasses Cardiovascular History: Reports: High Cholesterol, Hypertension Other Cardiovascular History: heart cath Respiratory History: Reports: Sleep Apnea Gastrointestinal History: Reports: Gastritis Other Gastrointestinal History: epigastric pain, duodentitis Genitourinary History: Reports: Urinary Incontinence Other Genitourinary History: dysuria 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 Endocrine/Metabolic History: Reports: Hypothyroidism, Obesity/BMI 30+ Hematologic History: Reports: Anemia - Past Surgical History GI Surgical History: Reports: Cholecystectomy Social & Family History - Family History Family Medical History: Noncontributory Other HEENT Family History: Patient unable to report family medical history. - Caffeine Use Caffeine Use: Reports: Coffee, Soda, Tea Other Caffeine Use: occassionally Review of Systems - Review of Systems Review Of Systems: See Below Constitutional: Reports: No Symptoms Ears: Reports: No Symptoms Nose: Reports: No Symptoms Cardiovascular: Reports: No Symptoms GI/Abdominal: Reports: No Symptoms Musculoskeletal: Reports: Other (Right shoulder, right hip pain) ED EXAM, GENERAL - Physical Exam Exam: See Below Exam Limited By: No Limitations General Appearance: No Apparent Distress Head: Atraumatic, Normocephalic Neck: Normal Inspection, Supple, Non-Tender, Full Range of Motion Respiratory/Chest: No Respiratory Distress, Lungs Clear, Normal Breath Sounds Cardiovascular: Normal Peripheral Pulses, Regular Rate, Rhythm, No Edema GI/Abdominal: Normal Bowel Sounds, Soft, Non-Tender Extremities: Other (Tenderness palpation of the right hip pelvis stable. Tenderness to palpation of the right shoulder the patient has full range of motion.) Neurological: Alert, Oriented, CN II-XII Intact, Normal Cognition, No Motor/ Sensory Deficits Psychiatric: Normal Affect, Normal Mood Course - Vital Signs Last Recorded V/S: Last Vital Signs Temp 36.7 C 02/13/18 12:07 Pulse 88 02/13/18 12:07 Resp 20 02/13/18 12:07 BP 131/73 02/13/18 12:07 Pulse Ox 98 02/13/18 12:07 - Re-Assessments/Exams Free Text/Narrative Re-Assessment/Exam: 02/13/18 12:41 8-year-old female presenting after a ground-level mechanical fall. On initial evaluation patient appeared in no acute distress. Vital signs are normal. Physical exam no rash or right hip to palpation. Plan right now is to obtain plain films of the right shoulder right hip Plain films show no acute fracture or dislocation by my interpretation. There were findings consistent with severely advanced arthritis. I reviewed the findings with the patient. Patient was ambulated at bedside and can transfer as she normally does at home. I did relate my concern to the patient regarding her safety in her home. She does live alone. She has family lives in other states. Patient states that she will be more accepting of help. She currently has assistance that comes into the home several times per week. She will discuss with her family once she is home further measures such as a jail or perhaps moving in with them. At this time until the patient is safe for discharge home and she wishes to be discharged home. She does not wish to be admitted to the hospital and I see no reason to admit her at this time. Departure - Departure Time of Disposition: 16:13 Disposition: Home, Self-Care 01 Condition: Fair Clinical Impression: Arthritis Fall Qualifiers: Encounter type: initial encounter Qualified Code(s): W19.XXXA - Unspecified fall, initial encounter - Discharge Information *PRESCRIPTION DRUG MONITORING PROGRAM REVIEWED*: No *COPY OF PRESCRIPTION DRUG MONITORING REPORT IN PATIENT ARACELY: No Instructions: Osteoarthritis Referrals: Jalen Armstrong MD [Primary Care Provider] - Forms: ED Department Discharge Additional Instructions: You were seen today in the ED for a fall at home. Your xrays don't show any serious injury. Please be extra careful this weekend while you're at home. You should consider moving into an assisted living facility.
--- NOTE | 2018-02-16 14:07 | CR ---
Pelvis and right hip: AP view of the pelvis is obtained as well as AP and frog-leg lateral views of the right hip. Comparison: Previous pelvis and right hip study of 12/18/16. Thinning of the medial acetabular wall is noted on both sides. Significant acetabular protrusio is noted on the right side. Lesser acetabular protrusio is seen on the left side. Bony structures are osteopenic. Degenerative change is partially seen within the lumbar spine. Nothing acute is appreciated. Impression: 1. 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 These findings are an interval change from prior exam. Medial acetabular clifford are extremely thin and difficult to exclude fracture on this study. 2. Osteopenia and degenerative change as noted above. Diagnostic code #3
--- NOTE | 2018-02-16 14:07 | CR ---
Right shoulder: Three views of the right shoulder were obtained. Comparison: No prior shoulder exam. Humeral head is subluxed superiorly and difficult to exclude a rotator cuff tear. Acromioclavicular joint appears within normal limits. No fracture or other abnormality is seen. Impression: 1. Difficult to exclude rotator cuff tear. 2. Right shoulder study is otherwise unremarkable. No acute bony abnormality is identified. Diagnostic code #2
== END 2018-02-13 16:20 | disposition home or self-care (01) ==
LOC: JD.ED 12:02 → SUPCPDRO 12:02 → JD.ED 16:20
DX: M19.90 Unspecified osteoarthritis, unspecified site (principal); I10 Essential (primary) hypertension; E66.9 Obesity, unspecified; Z88.5 Allergy status to narcotic agent; Z79.899 Other long term (current) drug therapy; W19.XXXA Unspecified fall, initial encounter
CPT/HCPCS: 73030-26-RT; 73030-RT; 73502-26-RT; 73502-RT; 99283; 99285

== ENCOUNTER 2018-02-25 15:20 | Emergency (ER) | payer MEDICARE, MEDICAID ==
[2018-02-25 15:38] VITALS: BP 81/37
[2018-02-25] MEDS ORDERED: HYDROmorphone 1 MG/ML Syringe IM ONE (15:58)
--- NOTE | 2018-02-25 16:02 | EDM.PDOC ---
ED HPI GENERAL MEDICAL PROBLEM - General Chief Complaint: General Stated Complaint: [facility] Time Seen by Provider: 02/25/18 15:50 Source of Information: Reports: Patient History Limitations: Reports: No Limitations - History of Present Illness INITIAL COMMENTS - FREE TEXT/NARRATIVE: Patient is a 62-year-old female presents ED complaining of right shoulder, right hip, right upper leg, and right knee pain. States pain started approximately 3 days ago with unclear etiology. States she fell about 1-2 weeks ago was evaluated by PCP with instructions to continue taking all medications as prescribed. Again unclear what aggravated the symptoms 3 days ago. Patient does have a history of fibromyalgia and is on chronic pain medications. She is on baclofen, Voltaren, meloxicam, fentanyl, gabapentin, Flexeril, for the chronic pain syndrome. She denies any recent fall or activities that would have precipitated the pain. Generalized Pain Score (Numeric/FACES): 10 - Related Data Allergies Allergy/AdvReac Type Severity Reaction Status Date / Time codeine Allergy Mild Itching Verified 02/25/18 15:38 haloperidol [From Haldol] AdvReac Mild Facial Verified 02/25/18 15:38 Spasms lithium [[place]] AdvReac Mild Hallucinati Verified 02/25/18 15:38 ons Home Meds: Home Meds Potassium Chloride 10 meq PO DAILY 10/17/13 [History] traZODone 150 mg PO BEDTIME 10/17/13 [History] ARIPiprazole [Abilify] 10 mg PO DAILY 08/08/15 [History] Benztropine [Cogentin] 0.5 mg PO BID 08/08/15 [History] Gabapentin [Neurontin] 1,200 mg PO BID 08/08/15 [History] ClonazePAM [KlonoPIN] 0.5 mg PO TID PRN 10/05/15 [History] Levothyroxine Sodium [Levoxyl] 175 mcg PO DAILY 10/05/15 [History] Nitroglycerin [Nitrostat] 0.4 mg SL DAILY PRN 10/05/15 [History] Sennosides/Docusate Sodium [Senna-Docusate Sodium] 1 tab PO BID 10/05/15 [ History] Alendronate Sodium [Alendronate] 70 mg PO WEEKLY 08/05/17 [History] Cyclobenzaprine [Flexeril] 10 mg PO BEDTIME 08/05/17 [History] Ferrous Sulfate 325 mg PO BID 08/05/17 [History] Folic Acid 1 mg PO DAILY 08/05/17 [History] Pantoprazole [ProTONIX] 40 mg PO DAILY 08/05/17 [History] Vortioxetine Hydrobromide [Trintellix] 20 mg PO DAILY 08/05/17 [History] fentaNYL [Duragesic] 50 mcg TOP Q72H 08/05/17 [History] Acetaminophen [Tylenol] 325 mg PO ASDIRECTED 02/25/18 [History] Ascorbic Acid [Vitamin C] 250 mg PO ASDIRECTED 02/25/18 [History] Baclofen 10 mg PO ASDIRECTED 02/25/18 [History] Calcium Carbonate [Calcium] 600 mg PO ASDIRECTED 02/25/18 [History] Cholecalciferol (Vitamin D3) [D-2000] 2,000 unit PO DAILY 02/25/18 [History] Clotrimazole [Clotrimazole 1%] 15 gram TOP ASDIRECTED 02/25/18 [History] Clotrimazole [Lotrimin AF 1% Crm] 1 percent TOP BID 02/25/18 [History] Dextran 70/Hypromellose [Artificial Tears] 15 ml OP ASDIRECTED 02/25/18 [History ] Diclofenac Sodium [Voltaren] 100 gm TP ASDIRECTED 02/25/18 [History] Linaclotide [Linzess] 145 mcg PO ASDIRECTED 02/25/18 [History] Meloxicam [Mobic] 15 mg PO ASDIRECTED 02/25/18 [History] Menthol/Zinc Oxide [Remedy Calazime Protect Paste] 113 gm TP ASDIRECTED [History] Mupirocin Oint [Bactroban Oint] 22 gm TP ASDIRECTED 02/25/18 [History] Polyethylene Glycol 3350 [MiraLAX] 17 gm PO BEDTIME 02/25/18 [History] Triamcinolone Acetonide [Kenalog 0.1% Crm] 15 gm .XX ASDIRECTED 02/25/18 [ History] Past Medical History HEENT History: Reports: Cataract, Impaired Vision Other HEENT History: R eye surgery x 4, wears glasses Cardiovascular History: Reports: High Cholesterol, Hypertension Other Cardiovascular History: heart cath Respiratory History: Reports: Sleep Apnea Gastrointestinal History: Reports: Gastritis Other Gastrointestinal History: epigastric pain, duodentitis Genitourinary History: Reports: Urinary Incontinence Other Genitourinary History: dysuria 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 Endocrine/Metabolic History: Reports: Hypothyroidism, Obesity/BMI 30+ Hematologic History: Reports: Anemia - Past Surgical History GI Surgical History: Reports: Cholecystectomy Social & Family History - Family History Family Medical History: Noncontributory Other HEENT Family History: Patient unable to report family medical history. - Tobacco Use Smoking Status *Q: Former Smoker Used Tobacco, but Quit: Yes Month/Year Tobacco Last Used: 30 years ago Second Hand Smoke Exposure: No - Caffeine Use Caffeine Use: Reports: Coffee Other Caffeine Use: occassionally - Recreational Drug Use Recreational Drug Use: No ED ROS GENERAL - Review of Systems Review Of Systems: ROS reveals no pertinent complaints other than HPI. ED EXAM, GENERAL - Physical Exam Exam: See Below Exam Limited By: No Limitations General Appearance: Alert, WD/WN, Moderate Distress Eye Exam: Bilateral Eye: Normal Inspection Ears: Hearing Grossly Normal Nose: Normal Inspection Throat/Mouth: Normal Inspection, Normal Oropharynx, Normal Voice, No Airway Compromise Head: Atraumatic, Normocephalic Neck: Normal Inspection, Supple, Full Range of Motion, Tender Lateral (right lateral). No: Tender Midline Respiratory/Chest: No Respiratory Distress, Lungs Clear, Normal Breath Sounds, No Accessory Muscle Use, Chest Non-Tender Cardiovascular: Normal Peripheral Pulses, Regular Rate, Rhythm, No Murmur Peripheral Pulses: 1+: Posterior Tibial (L), Posterior Tibial (R), 2+: Radial (L ), Radial (R) GI/Abdominal: Normal Bowel Sounds, Soft, Non-Tender, No Organomegaly, No Distention Extremities: Leg Pain (Pain noted with palpation of the right hip, upper leg, knee. Limited examination due to pain.), Limited Range of Motion Neurological: Alert, Oriented, CN II-XII Intact, Normal Cognition, No Motor/ Sensory Deficits Psychiatric: Normal Affect, Normal Mood Skin Exam: Warm, Dry, Intact, Normal Color Course - Vital Signs Last Recorded V/S: Last Vital Signs Temp 98 F 02/25/18 15:30 Pulse 90 02/25/18 15:30 Resp 20 02/25/18 15:30 BP 81/37 L 02/25/18 15:30 Pulse Ox 95 02/25/18 15:30 - Orders/Labs/Meds Orders: Active Orders 24 hr Category Date Time Status Femur Min 2V Rt [CR] Stat Exams 02/25/18 15:58 Taken Pelvis 1V or 2V [CR] Stat Exams 02/25/18 15:58 Taken Shoulder Comp Rt [CR] Stat Exams 02/25/18 15:58 Taken Meds: Medications Discontinued Medications Generic Name Dose Route Start Last Admin Trade Name Jermainq PRN Reason Stop Dose Admin Hydromorphone HCl 1 mg 02/25/18 15:58 02/25/18 16:10 Dilaudid IM 02/25/18 15:59 1 mg ONETIME ONE Administration - Re-Assessments/Exams Free Text/Narrative Re-Assessment/Exam: On examination patient's blood pressure is 110/76. Heart rate is 103. Patient is in distress secondary to pain. She told triage that she was complaining of legs hurting and left sided buttocks. Patient did not complain of left leg and or buttocks pain with examination and history taking. On examination she had no pain to the left leg or buttocks. Patient complaining of increasing pain with palpation of the right shoulder, hip , knee, and upper leg. Patient does not ambulate and uses a wheelchair to maneuver. Patient states she fell last week. She was evaluated by PCP and was told to take all her medications as prescribed. Patient is on a fentanyl patch for chronic pain syndrome. Ordered Dilaudid IM. Ordered x-ray of the femur, hip, knee, and shoulder. Reviewed x-rays of the right shoulder, right hip, pelvis, right femur, and right knee with Dr. Snyder. Degenerative changes noted. Nothing acute noted. Final interpretation is pending. 02/25/18 1655 Reassessment, patient is feeling much better. Pain has subsided. She is ready to be discharged home. Departure - Departure Time of Disposition: 17:01 Disposition: Home, Self-Care 01 Condition: Good Clinical Impression: Arthritis - Discharge Information Instructions: Arthritis Referrals: Jalen Armstrong MD [Primary Care Provider] - Forms: ED Department Discharge Additional Instructions: Followup with PCP this coming week for reevaluation. Continue taking all home medications as prescribed. No driving since receiving a sedative medication. refrain from any activities that cause worsening pain. Return to the E.D. if you develop any new or worsening symptoms. - My Orders Last 24 Hours: My Active Orders 02/25/18 15:58 Femur Min 2V Rt [CR] Stat Pelvis 1V or 2V [CR] Stat Shoulder Comp Rt [CR] Stat - Assessment/Plan Last 24 Hours: My Active Orders 02/25/18 15:58 Femur Min 2V Rt [CR] Stat Pelvis 1V or 2V [CR] Stat Shoulder Comp Rt [CR] Stat
--- NOTE | 2018-02-26 08:40 | CR ---
Pelvis: AP view of the pelvis was obtained. Comparison: Prior pelvis exam of 02/13/18. Acetabular protrusio is seen within both hips, worse on the right side. Difficult to exclude fracture within the medial acetabulum due to thinning of the acetabular clifford. Diffuse joint space narrowing seen within both hips. Osteopenia is seen. Mild degenerative change is seen within the lower lumbar spine. Impression: 1. Diffuse joint space narrowing within both hips with acetabular protrusio. Medial acetabular clifford are thinned within both hips and difficult to exclude fracture within the medial acetabular wall. 2. Mild degenerative change is partially seen within the spine. Osteopenia. Diagnostic code #3
--- NOTE | 2018-02-26 08:40 | CR ---
Right femur: AP and lateral views of the right femur were obtained. Comparison: Previous pelvis and right hip study of 02/13/18. Acetabular protrusio is seen of the right hip. Possible fracturing of the medial acetabular wall is noted. This finding is similar to prior exam. Diffuse and severe joint space narrowing is noted within the right hip. Bony structures are osteopenic. Diffuse joint space narrowing seen within the knee involving both compartments as well as articular osteophytes. No additional fracture or other abnormality is seen. Impression: 1. Diffuse joint space narrowing within the right hip with acetabular protrusio and possible fracturing of the medial acetabular wall. This finding is similar to previous exam. 2. Other degenerative change as noted above and osteopenia. Diagnostic code #3
--- NOTE | 2018-02-26 08:40 | CR ---
Right shoulder: Three views of the right shoulder were obtained. Comparison: Prior right shoulder study of 02/13/18. Humeral head is subluxed superiorly compatible with chronic rotator cuff tear. Slight joint space narrowing and minimal inferior spurring is seen within the acromioclavicular joint. No fracture, dislocation or other bony abnormality is seen. Impression: 1. Mild degenerative change. 2. Chronic rotator cuff tear within the right shoulder. Diagnostic code #3
== END 2018-02-25 17:15 | disposition home or self-care (01) ==
LOC: JD.ED 15:20
DX: M19.90 Unspecified osteoarthritis, unspecified site (principal); I10 Essential (primary) hypertension; E78.00 Pure hypercholesterolemia, unspecified; F31.9 Bipolar disorder, unspecified; F32.9 Major depressive disorder, single episode, unspecified; E03.9 Hypothyroidism, unspecified; Z88.5 Allergy status to narcotic agent; Z88.8 Allergy status to other drugs, medicaments and biological substances; Z79.899 Other long term (current) drug therapy; Z87.891 Personal history of nicotine dependence
CPT/HCPCS: 72170; 73030; 73552; 96372; 99284; J1170

== ENCOUNTER 2018-08-20 12:24 | Emergency (ER) | payer MEDICARE, MEDICAID ==
[2018-08-20 13:06] VITALS: BP 112/75
--- NOTE | 2018-08-20 14:03 | EDM.PDOC ---
ED HPI GENERAL MEDICAL PROBLEM - General Chief Complaint: Upper Extremity Injury/Pain Stated Complaint: SHOULDER AND ARM SWOLLEN Time Seen by Provider: 08/20/18 13:20 - History of Present Illness INITIAL COMMENTS - FREE TEXT/NARRATIVE: 63-year-old female comes emergency room with increased right shoulder swelling and discomfort. Patient has significant degenerative joint disease in the shoulder and recently has had a couple of steroid injections and fluid drawn off the shoulder. She's had a shoulder injection last 6 weeks at which point they kavita off between 60 and 70 mL of fluid. Patient denies any recent trauma to the area. Patient has significant degenerative joint disease in multiple joints. Patient does not have any recent chest pain chest pressure breathing difficulties or shortness of breath is otherwise doing okay except the shoulder is really causing her some discomfort. Right Upper Arm Pain Score (Numeric/FACES): 10 - Related Data Allergies Allergy/AdvReac Type Severity Reaction Status Date / Time codeine Allergy Mild Itching Verified 03/25/18 14:46 haloperidol [From Haldol] AdvReac Mild Facial Verified 03/25/18 14:46 Spasms lithium [[place]] AdvReac Mild Hallucinati Verified 03/25/18 14:46 ons Home Meds: Home Meds Potassium Chloride 10 meq PO DAILY 10/17/13 [History] traZODone 150 mg PO BEDTIME 10/17/13 [History] ARIPiprazole [Abilify] 10 mg PO DAILY 08/08/15 [History] Benztropine [Cogentin] 0.5 mg PO BID 08/08/15 [History] Gabapentin [Neurontin] 1,200 mg PO BEDTIME 08/08/15 [History] ClonazePAM [KlonoPIN] 0.5 mg PO TID PRN 10/05/15 [History] Levothyroxine Sodium [Levoxyl] 175 mcg PO DAILY 10/05/15 [History] Nitroglycerin [Nitrostat] 0.4 mg SL DAILY PRN 10/05/15 [History] Sennosides/Docusate Sodium [Senna-Docusate Sodium] 1 tab PO BID 10/05/15 [ History] Alendronate Sodium [Alendronate] 70 mg PO WEEKLY 08/05/17 [History] Cyclobenzaprine [Flexeril] 10 mg PO BEDTIME 08/05/17 [History] Ferrous Sulfate 325 mg PO BID 08/05/17 [History] Folic Acid 1 mg PO DAILY 08/05/17 [History] Pantoprazole [ProTONIX] 40 mg PO DAILY 08/05/17 [History] Vortioxetine Hydrobromide [Trintellix] 20 mg PO DAILY 08/05/17 [History] fentaNYL [Duragesic] 50 mcg TOP Q72H 08/05/17 [History] Acetaminophen [Tylenol] 650 mg PO TID PRN 02/25/18 [History] Ascorbic Acid [Vitamin C] 250 mg PO BID 02/25/18 [History] Baclofen 15 mg PO BEDTIME 02/25/18 [History] Calcium Carbonate [Calcium] 600 mg PO BIDMEALS 02/25/18 [History] Cholecalciferol (Vitamin D3) [D] 2,000 unit PO DAILY 02/25/18 [History] Clotrimazole [Clotrimazole 1%] 15 gram TOP ASDIRECTED 02/25/18 [History] Clotrimazole [Lotrimin AF 1% Crm] 1 percent TOP BID 02/25/18 [History] Dextran 70/Hypromellose [Artificial Tears] 15 ml OP ASDIRECTED 02/25/18 [History ] Diclofenac Sodium [Voltaren] 100 gm TP ASDIRECTED 02/25/18 [History] Linaclotide [Linzess] 145 mcg PO DAILY 02/25/18 [History] Meloxicam [Mobic] 7.5 mg PO DAILY 02/25/18 [History] Menthol/Zinc Oxide [Remedy Calazime Protect Paste] 113 gm TP ASDIRECTED [History] Mupirocin Oint [Bactroban Oint] 22 gm TOP TID 02/25/18 [History] Polyethylene Glycol 3350 [MiraLAX] 17 gm PO BEDTIME 02/25/18 [History] Triamcinolone Acetonide [Kenalog 0.1% Crm] 15 gm .XX ASDIRECTED 02/25/18 [ History] Gabapentin [Neurontin] 600 mg PO QAM 03/25/18 [History] Lidocaine 5% [Lidoderm 5%] 2 patch TOP DAILY #20 patch 04/22/18 [Rx] Past Medical History HEENT History: Reports: Cataract, Impaired Vision Other HEENT History: R eye surgery x 4, wears glasses Cardiovascular History: Reports: High Cholesterol, Hypertension Other Cardiovascular History: heart cath Respiratory History: Reports: Sleep Apnea Gastrointestinal History: Reports: Gastritis Other Gastrointestinal History: epigastric pain, duodentitis Genitourinary History: Reports: Urinary Incontinence Other Genitourinary History: dysuria [employer] History: Reports: Musculoskeletal History: Reports: Fibromyalgia, Osteoarthritis, Osteoporosis, Other (See Below) Other Musculoskeletal History: degenerative joint disease,chronic neck pain, shoulder impingement, R Rotator cuff repair, L knee arthroscopy Neurological History: Reports: Head Trauma Psychiatric History: Reports: Anxiety, Bipolar, Depression, Panic Attack, Psychosis, Schizophrenia, Suicidal Ideation Other Psychiatric History: Denies suicidal ideation at this time. Endocrine/Metabolic History: Reports: Hypothyroidism, Obesity/BMI 30+ Hematologic History: Reports: Anemia - Past Surgical History GI Surgical History: Reports: Cholecystectomy Social & Family History - Family History Family Medical History: Noncontributory Other HEENT Family History: Patient unable to report family medical history. - Tobacco Use Smoking Status *Q: Former Smoker Used Tobacco, but Quit: Yes Month/Year Tobacco Last Used: 30 yrs - Caffeine Use Caffeine Use: Reports: Coffee, Soda Other Caffeine Use: occassionally - Recreational Drug Use Recreational Drug Use: No Review of Systems - Review of Systems Review Of Systems: See Below Constitutional: Reports: No Symptoms Respiratory: Reports: No Symptoms Cardiovascular: Reports: No Symptoms GI/Abdominal: Reports: No Symptoms ED EXAM, GENERAL - Physical Exam Exam: See Below Exam Limited By: No Limitations General Appearance: Alert, No Apparent Distress Head: Atraumatic, Normocephalic Neck: Normal Inspection, Supple, Non-Tender, Full Range of Motion Respiratory/Chest: No Respiratory Distress, Lungs Clear, Normal Breath Sounds Cardiovascular: Regular Rate, Rhythm, No Edema, No Murmur ED TRAUMA EXTREMITY PROCEDURES - Additional/Other Procedure(s) Other (Free Text) Procedure(s): Arthrocentesis right shoulder. Indication excessive fluid collection. Patient recently had a steroid injection is not different steroid injection however she' s gotten reaccumulation of fluid in right shoulder this is getting somewhat bothersome for her. We discussed the recent benefits of repeat arthrocentesis after I discussed her situation with Dr. Burgos her orthopedic surgeon area we did discuss the risks and benefits of the procedure and patient wished to proceed. I did the procedure Dr. Burgos was present. Without to much difficulty a total of 55 mL of slightly bloody normal-looking joint fluid was removed with a posterior approach. She tolerated this without to much difficulty and she felt better after was done. We discussed joint fluid analysis but it was deemed unnecessary as the patient has very well-established degenerative joint disease and she keeps reaccumulating this fluid. Course - Vital Signs Last Recorded V/S: Last Vital Signs Temp 36.8 C 08/20/18 13:05 Pulse 71 08/20/18 13:05 Resp 20 08/20/18 13:05 BP 112/75 08/20/18 13:05 Pulse Ox 98 08/20/18 13:05 Departure - Departure Time of Disposition: 15:41 Disposition: Home, Self-Care 01 Clinical Impression: Degenerative joint disease, shoulder, right, Effusion, right shoulder - Discharge Information Instructions: What You Need to Know About Osteoarthritis Referrals: Jalen Armstrong MD [Primary Care Provider] - Forms: ED Department Discharge Additional Instructions: Return to the emergency room with any questions problems worsening symptoms. Follow-up with Dr. Burgos today in the next couple of weeks
== END 2018-08-20 16:01 | disposition home or self-care (01) ==
LOC: JD.ED 12:24
DX: M19.011 Primary osteoarthritis, right shoulder (principal); E78.00 Pure hypercholesterolemia, unspecified; I10 Essential (primary) hypertension; Z87.891 Personal history of nicotine dependence; Z88.5 Allergy status to narcotic agent; Z88.8 Allergy status to other drugs, medicaments and biological substances; Z79.899 Other long term (current) drug therapy
CPT/HCPCS: 20610; 99282; 99283-25

== ENCOUNTER 2018-08-28 20:06 | Inpatient (IN) | payer MEDICARE, MEDICAID ==
[2018-08-28] MEDS ORDERED: HYDROmorphone 1 MG/ML Syringe IVPUSH ONE (20:14)
[2018-08-28] MEDS ORDERED: Ondansetron 4 MG/2 ML SDV IVPUSH ONE (20:15)
[2018-08-28] MEDS ORDERED: Sodium Chloride 0.9% 1,000 ML IV SCH (20:15)
--- NOTE | 2018-08-28 20:21 | EDM.PDOC ---
ED HPI GENERAL MEDICAL PROBLEM - General Chief Complaint: Lower Extremity Injury/Pain Stated Complaint: [facility] Time Seen by Provider: 08/28/18 20:13 Source of Information: Reports: Patient History Limitations: Reports: No Limitations - History of Present Illness INITIAL COMMENTS - FREE TEXT/NARRATIVE: 63-year-old female presents to the ED due to recurrent falls in her home. Apparently she lives in aassisted-living a board. Her legs are extremely weak and painful due to last arthritis in her hips and knees making walking extremely difficult. She usually walks with aid of a walker. She's fallen several times over the last few days. Usually slides down to the floor. Medics were called often to her place to come and help get her back up off the floor. This evening she apparently fell harder than normal landing on her right hip and her right shoulder. She believes she was down on the floor for about a half an hour. Denies hitting her head at any of the times during her falls. She has chronic neck pain from degenerative arthritis and disc disease. Pain in the proximal right humerus and right hip area particular groin and buttock area. Unable to get up from the floor. She had to push her life alert button and called by phone to summon the paramedics. Current pain is rated as 8 out of 10 in her right hip. Patient has an underlying psychiatric disorder I believe chronic schizophrenia. She does exhibit some transient lipsmacking suggestive of tardive dyskinesia. Apparently she wears a fentanyl patch 50 g per hour for chronic pain syndrome. Onset: Today Onset Date: 08/28/18 Onset Time: 18:30 Duration: Minutes: Location: Reports: Upper Extremity, Right (Pain right proximal humerus.), Lower Extremity, Right (Pain right hip and groin and buttock area.) Quality: Reports: Ache Severity: Moderate (Peak rates pain as 8 out of 10.) Improves with: Reports: Rest Worsens with: Reports: Movement Context: Reports: Trauma (Fall at home.). Denies: Activity, Exercise, Lifting, Sick Contact Associated Symptoms: Reports: Malaise, Weakness (Particular in her lower extremities due to severe pain in her knees.). Denies: Confusion, Chest Pain, Cough, cough w sputum, Diaphoresis, Fever/Chills, Headaches, Loss of Appetite, Nausea/Vomiting, Seizure, Shortness of Breath, Syncope Treatments CHAIN SPLITTER: Reports: Other (see below) (Paramedics did not administer any medications.) Right Leg Pain Score (Numeric/FACES): 8 - Related Data Allergies Allergy/AdvReac Type Severity Reaction Status Date / Time codeine Allergy Mild Itching Verified 08/28/18 22:25 haloperidol [From Haldol] AdvReac Mild Facial Verified 08/28/18 22:25 Spasms lithium [[place]] AdvReac Mild Hallucinati Verified 08/28/18 22:25 ons Home Meds: Home Meds Potassium Chloride 10 meq PO DAILY 10/17/13 [History] traZODone 125 mg PO BEDTIME 10/17/13 [History] ARIPiprazole [Abilify] 20 mg PO DAILY 08/08/15 [History] Benztropine [Cogentin] 0.5 mg PO BID 08/08/15 [History] Gabapentin [Neurontin] 1,200 mg PO BEDTIME 08/08/15 [History] ClonazePAM [KlonoPIN] 0.5 mg PO TID PRN 10/05/15 [History] Levothyroxine Sodium [Levoxyl] 175 mcg PO DAILY 10/05/15 [History] Nitroglycerin [Nitrostat] 0.4 mg SL DAILY PRN 10/05/15 [History] Sennosides/Docusate Sodium [Senna-Docusate Sodium] 1 tab PO BID 10/05/15 [ History] Alendronate Sodium [Alendronate] 70 mg PO WEEKLY 08/05/17 [History] Ferrous Sulfate 325 mg PO BID 08/05/17 [History] Folic Acid 1 mg PO DAILY 08/05/17 [History] Vortioxetine Hydrobromide [Trintellix] 20 mg PO DAILY 08/05/17 [History] fentaNYL [Duragesic] 12 mcg TOP Q72H 08/05/17 [History] Acetaminophen [Tylenol] 650 mg PO TID PRN 02/25/18 [History] Ascorbic Acid [Vitamin C] 250 mg PO BID 02/25/18 [History] Cholecalciferol (Vitamin D3) [D-2000] 2,000 unit PO DAILY 02/25/18 [History] Clotrimazole [Clotrimazole 1%] 15 gram TOP ASDIRECTED 02/25/18 [History] Clotrimazole [Lotrimin AF 1% Crm] 1 percent TOP BID 02/25/18 [History] Dextran 70/Hypromellose [Artificial Tears] 15 ml OP ASDIRECTED 02/25/18 [History ] Diclofenac Sodium [Voltaren] 100 gm TP ASDIRECTED 02/25/18 [History] Menthol/Zinc Oxide [Remedy Calazime Protect Paste] 113 gm TP ASDIRECTED [History] Polyethylene Glycol 3350 [MiraLAX] 17 gm PO BEDTIME 02/25/18 [History] Triamcinolone Acetonide [Kenalog 0.1% Crm] 15 gm .XX ASDIRECTED 02/25/18 [ History] Gabapentin [Neurontin] 600 mg PO QAM 03/25/18 [History] Gabapentin [Neurontin] 600 mg PO ACDINNER 08/28/18 [History] Past Medical History HEENT History: Reports: Cataract, Impaired Vision Other HEENT History: R eye surgery x 4, wears glasses Cardiovascular History: Reports: High Cholesterol, Hypertension Other Cardiovascular History: heart cath Respiratory History: Reports: Sleep Apnea Gastrointestinal History: Reports: Gastritis Other Gastrointestinal History: epigastric pain, duodentitis Genitourinary History: Reports: Urinary Incontinence Other Genitourinary History: dysuria [employer] History: Reports: Musculoskeletal History: Reports: Fibromyalgia, Osteoarthritis, Osteoporosis, Other (See Below) Other Musculoskeletal History: degenerative joint disease,chronic neck pain, shoulder impingement, R Rotator cuff repair, L knee arthroscopy Neurological History: Reports: Head Trauma Psychiatric History: Reports: Anxiety, Bipolar, Depression, Panic Attack, Psychosis, Schizophrenia, Suicidal Ideation Other Psychiatric History: Denies suicidal ideation at this time. Endocrine/Metabolic History: Reports: Hypothyroidism, Obesity/BMI 30+ Hematologic History: Reports: Anemia - Past Surgical History GI Surgical History: Reports: Cholecystectomy Social & Family History - Family History Family Medical History: Noncontributory Other HEENT Family History: Patient unable to report family medical history. - Caffeine Use Caffeine Use: Reports: Coffee, Soda Other Caffeine Use: occassionally - Living Situation & Occupation Living situation: Reports: Alone Occupation: Disabled Review of Systems - Review of Systems Review Of Systems: See Below Constitutional: Reports: Weakness. Denies: Diaphoresis, Fever Eyes: Reports: Glasses Ears: Reports: No Symptoms Nose: Reports: No Symptoms Mouth/Throat: Reports: Other (Chronic dry mouth.). Denies: Loose Teeth Respiratory: Reports: Shortness of Breath. Denies: Wheezing, Pleuritic Chest Pain, Cough, Sputum Cardiovascular: Denies: Chest Pain, Edema, Irregular Heart Rate GI/Abdominal: Reports: No Symptoms Genitourinary: Reports: Incontinence (Both urge and stress components) Musculoskeletal: Reports: Neck Pain (Proximal right humeral pain neck pain from degenerative arthritis and disc disease.), Shoulder Pain (Chronic pain both shoulders.), Arm Pain, Back Pain (Pain right proximal humerus), Leg Pain ( chronic low back pain), Joint Pain ( chronic bilateral knee pain stratus knees hips ) Skin: Reports: No Symptoms Neurological: Denies: Confusion, Dizziness, Headache, Numbness, Paresthesia, Pre -Existing Deficit, Seizure, Syncope, Tingling, Tremors Psychiatric: Reports: Depression, Other (Running schizophrenia well controlled on current medications) ED EXAM, GENERAL - Physical Exam Exam: See Below Exam Limited By: No Limitations General Appearance: Alert, Moderate Distress, Other (Of note she is lying on her right hip which is most unusual if it is broken.) Eye Exam: Bilateral Eye: Normal Inspection Throat/Mouth: Other Head: Atraumatic, Normocephalic (Tongue and mouth are mildly dry.) Neck: Normal Inspection, Limited Range of Motion, Tender Lateral (Tender laterally to palpation without any paraspinal muscle spasm.) Respiratory/Chest: No Respiratory Distress, Lungs Clear, Normal Breath Sounds, Decreased Breath Sounds (Decreased breath sounds the lower 25% of lung romero.) , Other (Proximal deformities) Cardiovascular: Normal Peripheral Pulses, Regular Rate, Rhythm, No Edema, No Gallop, No Murmur, No Rub Peripheral Pulses: 2+: Posterior Tibial (L), Posterior Tibial (R), Dorsalis Pedis (L), Dorsalis Pedis (R) GI/Abdominal: Normal Bowel Sounds, Soft, Non-Tender, No Organomegaly, No Abnormal Bruit, No Mass, Pelvis Stable, Other (The abdomen is very obese. Abdominal girth limits ability to palpate solid organs.) Back Exam: Other (No pain on palpation of the thoracic spine there is pain on palpation of the lower lumbar spine bilaterally with no paraspinal muscle spasm) Extremities: Other (She has marked posterior 30 changes in both of her knees. Moving or internally rotating the left hip causes pain in the right hip. However she is lying on the right side which should be unusual for a broken hip to be lying on that side. She will not allow any movement of the right hip) Neurological: Alert, Oriented (.), CN II-XII Intact, Normal Cognition, Other ( Somewhat slow to respond. Oriented 3 however.) Psychiatric: Flat Affect Skin Exam: Warm, Dry, Intact, Normal Color, No Rash EKG INTERPRETATION EKG Date: 08/28/18 Time: 20:23 Rhythm: NSR Rate (Beats/Min): 98 [place]: Normal P-Wave: Enlarged (Consider biatrial enlargement.) QRS: Other (RSR prime wave in V1 normal variant decreased voltage in the precordial leads compose COPD pattern) ST-T: Other (Nonspecific T-wave flattening in aVL. Also noted in V2.) QT: Normal EKG Interpretation Comments: Borderline ECG Course - Vital Signs Last Recorded V/S: Last Vital Signs Temp 36.9 C 08/28/18 20:11 Pulse 95 08/28/18 20:11 Resp 18 08/28/18 20:11 BP 90/48 L 08/28/18 20:17 Pulse Ox - Orders/Labs/Meds Orders: Active Orders 24 hr Category Date Time Status EKG Documentation Completion [RC] STAT Care 08/28/18 20:16 Active Femur Min 2V Rt [CR] Stat Exams 08/28/18 20:17 Taken Humerus Rt [CR] Stat Exams 08/28/18 20:18 Taken Pelvis 1V or 2V [CR] Stat Exams 08/28/18 20:17 Taken Sodium Chloride 0.9% [Normal Saline] 1,000 ml Med 08/28/18 20:15 Active IV ASDIRECTED Medication Orders Sodium Chloride (Normal Saline) 1,000 mls @ 150 mls/hr IV ASDIRECTED KATHERIN Last Admin: 08/28/18 20:44 Dose: 150 mls/hr Labs: Laboratory Tests 08/28/18 08/28/18 08/28/18 Range/Units 20:48 20:48 20:48 WBC 7.05 (3.98-10.04) K/mm3 RBC 4.35 (3.98-5.22) M/mm3 Hgb 12.2 (11.2-15.7) gm/L Hct 40.0 (34.1-44.9) % MCV 92.0 (79.4-94.8) fl MCH 28.0 (25.6-32.2) pg MCHC 30.5 L (32.2-35.5) g/dl RDW Std Deviation 54.5 H (36.4-46.3) fL Plt Count 245 (182-369) K/mm3 MPV 10.1 (9.4-12.3) fl Neutrophils % (Manual) 62 H (40-60) % Band Neutrophils % 0 (0-10) % Lymphocytes % (Manual) 34 (20-40) % Atypical Lymphs % 0 % Monocytes % (Manual) 4 (2-10) % Eosinophils % (Manual) 0 L (0.7-5.8) % Basophils % (Manual) 0 L (0.1-1.2) Platelet Estimate Adequate RBC Morph Comment Normal PT 10.0 (9.5-12.1) SECONDS INR < 0.93 APTT 30 (24-31) SECONDS Sodium 140 (136-145) mEq/L Potassium 4.0 (3.5-5.1) mEq/L Chloride 106 (98-107) mEq/L Carbon Dioxide 28 (21-32) mEq/L Anion Gap 10.0 (5-15) BUN 20 H (7-18) mg/dL Creatinine 0.8 (0.55-1.02) mg/dL Est Cr Clr Drug Dosing 66.45 mL/min Estimated GFR (MDRD) > 60 (>60) mL/min BUN/Creatinine Ratio 25.0 H (14-18) Glucose 131 H (80-115) mg/dL Calcium 9.5 (8.5-10.1) mg/dL Total Bilirubin 0.2 (0.2-1.0) mg/dL AST 14 L (15-37) U/L ALT 22 (14-59) U/L Alkaline Phosphatase 96 (46-116) U/L Creatine Kinase 26 (26-192) U/L C-Reactive Protein 1.4 H* (<1.0) mg/dL Total Protein 6.9 (6.4-8.2) g/dl Albumin 2.9 L (3.4-5.0) g/dl Globulin 4.0 gm/dL Albumin/Globulin Ratio 0.7 L (1-2) Urine Color (Yellow) Urine Appearance (Clear) Urine pH (5.0-8.0) Ur Specific [place] (1.005-1.030) Urine Protein (Negative) Urine Glucose (UA) (Negative) Urine Ketones (Negative) Urine Occult Blood (Negative) Urine Nitrite (Negative) Urine Bilirubin (Negative) Urine Urobilinogen (0.2-1.0) Ur Leukocyte Esterase (Negative) Urine RBC (0-5) /hpf Urine WBC (0-5) /hpf Ur Epithelial Cells (0-5) /hpf Urine Bacteria (FEW) /hpf Urine Mucus (FEW) /hpf Blood Type Gel Antibody Screen 08/28/18 08/28/18 Range/Units 20:48 21:44 WBC (3.98-10.04) K/mm3 RBC (3.98-5.22) M/mm3 Hgb (11.2-15.7) gm/L Hct (34.1-44.9) % MCV (79.4-94.8) fl MCH (25.6-32.2) pg MCHC (32.2-35.5) g/dl RDW Std Deviation (36.4-46.3) fL Plt Count (182-369) K/mm3 MPV (9.4-12.3) fl Neutrophils % (Manual) (40-60) % Band Neutrophils % (0-10) % Lymphocytes % (Manual) (20-40) % Atypical Lymphs % % Monocytes % (Manual) (2-10) % Eosinophils % (Manual) (0.7-5.8) % Basophils % (Manual) (0.1-1.2) Platelet Estimate RBC Morph Comment PT (9.5-12.1) SECONDS INR APTT (24-31) SECONDS Sodium (136-145) mEq/L Potassium (3.5-5.1) mEq/L Chloride (98-107) mEq/L Carbon Dioxide (21-32) mEq/L Anion Gap (5-15) BUN (7-18) mg/dL Creatinine (0.55-1.02) mg/dL Est Cr Clr Drug Dosing mL/min Estimated GFR (MDRD) (>60) mL/min BUN/Creatinine Ratio (14-18) Glucose (80-115) mg/dL Calcium (8.5-10.1) mg/dL Total Bilirubin (0.2-1.0) mg/dL AST (15-37) U/L ALT (14-59) U/L Alkaline Phosphatase (46-116) U/L Creatine Kinase (26-192) U/L C-Reactive Protein (<1.0) mg/dL Total Protein (6.4-8.2) g/dl Albumin (3.4-5.0) g/dl Globulin gm/dL Albumin/Globulin Ratio (1-2) Urine Color Yellow (Yellow) Urine Appearance Clear (Clear) Urine pH 5.5 (5.0-8.0) Ur Specific [place] 1.025 (1.005-1.030) Urine Protein Negative (Negative) Urine Glucose (UA) Negative (Negative) Urine Ketones Negative (Negative) Urine Occult Blood Negative (Negative) Urine Nitrite Negative (Negative) Urine Bilirubin Negative (Negative) Urine Urobilinogen 0.2 (0.2-1.0) Ur Leukocyte Esterase Negative (Negative) Urine RBC 0-5 (0-5) /hpf Urine WBC 0-5 (0-5) /hpf Ur Epithelial Cells 0-5 (0-5) /hpf Urine Bacteria Few (FEW) /hpf Urine Mucus Not seen (FEW) /hpf Blood Type O NEGATIVE Gel Antibody Screen Negative Meds: Medications Generic Name Dose Route Start Last Admin Trade Name Freq PRN Reason Stop Dose Admin Sodium Chloride 1,000 mls @ 150 mls/hr 08/28/18 20:15 08/28/18 20:44 Normal Saline IV 150 mls/hr ASDIRECTED KATHERIN Administration Discontinued Medications Generic Name Dose Route Start Last Admin Trade Name Jermainq PRN Reason Stop Dose Admin Clonazepam 2 mg 08/28/18 22:53 Klonopin PO 08/28/18 22:54 ONETIME ONE Gabapentin 1,200 mg 08/28/18 22:53 Neurontin PO 08/28/18 22:54 ONETIME ONE Hydromorphone HCl 1 mg 08/28/18 20:14 08/28/18 20:46 Dilaudid IVPUSH 08/28/18 20:15 1 mg ONETIME ONE Administration Ondansetron HCl 4 mg 08/28/18 20:15 08/28/18 20:44 Zofran IVPUSH 08/28/18 20:16 4 mg ONETIME ONE Administration Polyethylene Glycol 17 gm 08/28/18 22:53 Miralax PO 08/28/18 22:54 ONETIME ONE - Radiology Interpretation Free Text/Narrative:: 63-year-old female presents to the ED per [facility] after apparently she fell at home this evening. She landed quite hard apparently on her buttock and right hip and injured her right proximal humerus or shoulder area. She has fallen apparently multiple times over the last 2-3 days. She has very bad arthritis in both of her knees and has limited mobility. She gets around with aid of a walker in her home. Is alone and has no nursing assistance. Peers that she needs to be and in assisted living program. Is to she has chronic schizophrenia and is on multiple medications. She administers her own medications or not. Multiple medications that she is on are sedating. He would be contributing to generalized weakness and falls. She apparently is also on fentanyl patch 50 g per hour for chronic pain. On examination of her right upper extremity she complains of pain in the proximal humerus area but I do not find any obvious deformities. She has good radial and ulnar pulses. X-ray of the proximal humerus will be done. Right hip is more difficult to examine as she is lying on it. Internal rotation of her left hip makes the right hip pain worse. She will have an x-ray were pelvis and right femur to. Routine labs will also be done. Type and screen. IV will be normal saline at 150 mils per hour. Given Dilaudid 1 mg IV with Zofran 4 mg IV for pain - Re-Assessments/Exams Free Text/Narrative Re-Assessment/Exam: 08/28/18 21:32 x-rays of the right humerus renal reveal no fractures. There is mild degenerative arthritic changes in the shoulder joint. Sanjay reveal advanced degenerative arthritis of both hips were they have eroded through the acetabula bilaterally. No fractures were identified. The right femur shows bone- on-bone at the knee but no fractures within the true femur bone. It's no doubt that she can barely walk and is can change to fall because limited mobility at the hip and the knee. Labs are pending 08/28/18 22:09 Labs are back. White count is 7.05 with 62% neutrophils and no band cells reported. Hemoglobin is 12.2 with hematocrit of 40. Blood count is normal 245,000. PT was 10.0 with an INR of less than 0.93. PTT is 30. Sodium 140 with potassium of 4.0. Chloride 106 with a bicarbonate of 28. And a gap is maldonado with a BUN of 20. Creatinine was 0.8. GFR is greater than 60. Glucose 131 calcium 9.5. Liver function is normal. Creatinine kinase is 26. C-reactive protein is 1.4. Total protein is 6.9 with an albumin fraction that is low at 2.9. Therefore I find no reason to keep her in the hospital as her condition is chronic although she has suffered may be contusion to her right arm and right hip. She ideally needs to have placement in correction center as her hips and knees are so bad that she cannot ambulate and requires assistance. 08/28/18 22:19 urinalysis obtained by catheterization is also negative for any infection. The patient cannot weight-bear at this time and therefore he needs to come in to hospital and be placed in a correction. I had this discussion with her and she is certainly willing to do this as she recognizes she can't function any longer at home alone. The ambulance is being summoned to her home quite often to pick her up off the floor. With a wheelchair no longer able to use the walker for the last 6 months. 08/28/18 22:25 Spoke with on-call physician Dr. Gomez and he is accepted care of this patient. She essentially is to coming to the hospital due to inability to ambulate and continue to fall. She needs to go into a correction which she is willing to do. Social work will have to become involved in her case on Thursday. 08/28/18 22:54 page orders written. Her nighttime medications include trazodone 125 mg but we do not have this available in the hospital. She has her meds with her and therefore will be given her meds from her own med box. She is also on Neurontin 1200 mg at at bedtime she can take her own meds that she has with her. and MiraLAX powder 17 g now as well. Departure - Departure Time of Disposition: 22:33 Disposition: Admitted As Inpatient 68 Condition: Fair Clinical Impression: Contusion of right shoulder or upper extremity, Schizophrenia in full remission with history of multiple episodes Fall as cause of accidental injury at home as place of occurrence Qualifiers: Encounter type: initial encounter Qualified Code(s): W19.XXXA - Unspecified fall, initial encounter Contusion of right hip and thigh Qualifiers: Encounter type: initial encounter Qualified Code(s): S70.01XA - Contusion of right hip, initial encounter Degenerative arthritis of hip Qualifiers: Osteoarthritis type: primary Laterality: bilateral Qualified Code(s): M16.0 - Bilateral primary osteoarthritis of hip Degenerative arthritis of knee, bilateral Qualifiers: Osteoarthritis type: primary Qualified Code(s): M17.0 - Bilateral primary osteoarthritis of knee - Discharge Information *PRESCRIPTION DRUG MONITORING PROGRAM REVIEWED*: Not Applicable *COPY OF PRESCRIPTION DRUG MONITORING REPORT IN PATIENT ARACELY: Not Applicable - My Orders Last 24 Hours: My Active Orders 08/28/18 20:15 Sodium Chloride 0.9% [Normal Saline] 1,000 ml IV ASDIRECTED 08/28/18 20:16 EKG Documentation Completion [RC] STAT 08/28/18 20:17 Femur Min 2V Rt [CR] Stat Pelvis 1V or 2V [CR] Stat 08/28/18 20:18 Humerus Rt [CR] Stat - Assessment/Plan Last 24 Hours: My Active Orders 08/28/18 20:15 Sodium Chloride 0.9% [Normal Saline] 1,000 ml IV ASDIRECTED 08/28/18 20:16 EKG Documentation Completion [RC] STAT 08/28/18 20:17 Femur Min 2V Rt [CR] Stat Pelvis 1V or 2V [CR] Stat 08/28/18 20:18 Humerus Rt [CR] Stat
[2018-08-28] MEDS ORDERED: ClonazePAM 1 MG Tab PO ONE (22:53)
[2018-08-28] MEDS ORDERED: Polyethylene Glycol 3350 Powder 17 GM Packet PO ONE (22:53)
[2018-08-28] MEDS ORDERED: Gabapentin 600 MG Tab PO ONE (22:53)
[2018-08-28] MEDS ORDERED: HYDROmorphone 0.5 MG/0.5 ML Syringe IVPUSH PRN (23:15)
[2018-08-28] MEDS ORDERED: Acetaminophen 325 MG Tab PO PRN ×2 (23:16→23:20)
[2018-08-28] MEDS ORDERED: Nitroglycerin 0.4 MG Tab.SL SL PRN (23:20)
[2018-08-28] MEDS ORDERED: hydrALAZINE 20 MG/ML SDV IVPUSH PRN (23:22)
[2018-08-28] MEDS ORDERED: Metoprolol Tartrate 5 MG/5 ML SDV IVPUSH PRN (23:22)
[2018-08-28] MEDS ORDERED: LORazepam 2 MG/ML SDV IVPUSH PRN (23:22)
[2018-08-28] MEDS ORDERED: Promethazine 6.25 MG in Sodium Chloride 0.9% 50 ML IV PRN (23:24)
[2018-08-28] MEDS ORDERED: LORazepam 2 MG/ML SDV IV PRN (23:24)
[2018-08-28] MEDS ORDERED: Docusate Sodium 100 MG Cap PO PRN (23:24)
[2018-08-28] MEDS ORDERED: Albuterol/Ipratropium 3.0-0.5 MG/3 ML Neb Soln NEB PRN (23:24)
[2018-08-28] MEDS ORDERED: Bisacodyl 5 MG Tab PO PRN (23:24)
--- NOTE | 2018-08-28 23:28 | PCM.SN ---
- Free Text/Narrative Note: Patient briefly seen and examined at bedside. She appears comfortable and in no pain. She reports no acute issues or concerns. She understands CM/[facility] are not available on weekend to work on her papers for placement. She is aware her son who lives in [place] is working on a plan to move her over there but would not be possible until 6 months from now.
[2018-08-28] MEDS ORDERED: Sodium Chloride 0.9% 10 ML Syringe FLUSH PRN (23:29)
[2018-08-28] MEDS ORDERED: ZINC OXIDE TOP SCH (23:30)
[2018-08-28] MEDS ORDERED: CLOTRIMAZOLE TOP SCH (23:30)
[2018-08-28] MEDS ORDERED: Non-Formulary Medication 1 Each (Alendronate Sodium 70 MG) PO SCH (23:30)
[2018-08-28] MEDS ORDERED: MENTHOL TOP SCH (23:30)
[2018-08-28] MEDS: ClonazePAM 0.5 MG Tab PO PRN (23:45)
[2018-08-29] MEDS: HYDROmorphone 1 MG/ML Syringe IVPUSH PRN ×2 (00:48→11:03)
[2018-08-29] MEDS: Acetaminophen/HYDROcodone 325-5 MG Tab PO PRN ×5 (04:31→22:50)
--- NOTE | 2018-08-29 08:09 | CR ---
Right humerus: Two views of the right humerus were obtained. Humeral head is elevated and abuts the acromion process compatible with chronic rotator cuff tear. No discrete fracture or other abnormality is seen. Impression: 1. Chronic rotator cuff tear as described above. 2. Nothing acute is appreciated. Diagnostic code #3
--- NOTE | 2018-08-29 08:09 | CR ---
Right femur: AP and lateral views of the right femur were obtained. Comparison: Prior right femur study of 02/25/18. Acetabular protrusio is seen with joint space narrowing. Diffuse joint space narrowing is noted within the knee. Bony structures are osteopenic. No definite acute abnormality is appreciated. Impression: 1. Acetabular protrusio with joint space narrowing. 2. Joint space narrowing also noted within the knee. 3. Nothing acute is definitely appreciated. No appreciable changes seen from previous study. Diagnostic code #3
--- NOTE | 2018-08-29 08:09 | CR ---
Pelvis: AP view of the pelvis was obtained. Comparison: Prior pelvis exam of 03/15/12. Bilateral acetabular protrusio is seen. Diffuse joint space narrowing is also noted within both hips. These findings are an interval change from previous exam. No definite fracture is appreciated. Bony structures are osteopenic. Impression: 1. 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 2. Nothing acute is definitely appreciated. Diagnostic code #3
[2018-08-29] MEDS: Ferrous Sulfate 325 MG Tab PO SCH ×2 (08:54→22:44)
[2018-08-29] MEDS: Benztropine 1 MG Tab PO SCH ×2 (08:56→22:41)
[2018-08-29] MEDS: Cholecalciferol (Vitamin D3) 1,000 Unit Tab PO SCH (08:56)
[2018-08-29] MEDS: Potassium Chloride 10 MEQ Tab.ER PO SCH (08:56)
[2018-08-29] MEDS: Folic Acid 1 MG Tab PO SCH (08:56)
[2018-08-29] MEDS: Ascorbic Acid 500 MG Tab PO SCH ×2 (08:56→22:40)
[2018-08-29] MEDS: ARIPiprazole 10 MG Tab PO SCH (08:56)
[2018-08-29] MEDS: Enoxaparin 40 MG/0.4 ML Syringe SUBCUT SCH (08:57)
--- NOTE | 2018-08-29 08:57 | PCM.HP ---
H&P History of Present Illness - General Date of Service: 08/29/18 Admit Problem/Dx: Admission Diagnosis/Problem Admission Diagnosis/Problem Recurrent falls Source of Information: Patient, Old Records, Provider, RN Notes Reviewed History Limitations: Reports: Physical Impairment - History of Present Illness Initial Comments - Free Text/Narative: This is a 63 yo white female with past medical hx/o Impaired Vision, HTN, HLD, GISELA, Gastritis/Duodenitis, Urinary Incontinence, Fibromyalgia, Advanced OA/DJD, Osteoporosis, Rotator Cuff Tear, Chronic Pain Syndrome, Opioid Dependent, Panic Attack, Psychosis/Schizophrenia, Anxiety, Depression, Hypothyroidism, Anemia, Obesity Class II, and Gait Instability who comes in from an assisted living facility for evaluation after recurrent falls. She carries a hx/o Advanced DJD/ OA, Osteoporosis, and Gait Instability. She uses a walker when she ambulates. She has fallen several times over the past few days and had to call the medics for help to get her up, off the floor. Her initial work up in ED shows a CBC remarkable for MCHC of 30.5, RDW of 54.5, and Neutrophils of 62%. Her chemistry is significant for BUN of 20, BS of 131, AST of 14, CRP of 1.4, and Albumin fo 1.4. Her UA is negative for UTI. All her imaging studies (humerus, femur and pelvis x-ray) per report reveals no acute abnormal findings. Patient is being admitted for recurrent falls and for SNF vs NH placement. She is full code. Right Leg Pain Score (Numeric/FACES): 8 - Related Data Allergies/Adverse Reactions: Allergies Allergy/AdvReac Type Severity Reaction Status Date / Time codeine Allergy Mild Itching Verified 08/28/18 23:33 haloperidol [From Haldol] AdvReac Mild Facial Verified 08/28/18 23:33 Spasms lithium [[place]] AdvReac Mild Hallucinati Verified 08/28/18 23:33 ons Home Medications: Home Meds Potassium Chloride 10 meq PO DAILY 10/17/13 [History] traZODone 125 mg PO BEDTIME 10/17/13 [History] ARIPiprazole [Abilify] 20 mg PO DAILY 08/08/15 [History] Benztropine [Cogentin] 0.5 mg PO BID 08/08/15 [History] Gabapentin [Neurontin] 1,200 mg PO BEDTIME 08/08/15 [History] ClonazePAM [KlonoPIN] 0.5 mg PO TID PRN 10/05/15 [History] Levothyroxine Sodium [Levoxyl] 175 mcg PO DAILY 10/05/15 [History] Nitroglycerin [Nitrostat] 0.4 mg SL DAILY PRN 10/05/15 [History] Alendronate Sodium [Alendronate] 70 mg PO WEEKLY 08/05/17 [History] Ferrous Sulfate 325 mg PO BID 08/05/17 [History] Folic Acid 1 mg PO DAILY 08/05/17 [History] Vortioxetine Hydrobromide [Trintellix] 20 mg PO DAILY 08/05/17 [History] fentaNYL [Duragesic] 12 mcg TOP Q72H 08/05/17 [History] Acetaminophen [Tylenol] 650 mg PO TID PRN 02/25/18 [History] Ascorbic Acid [Vitamin C] 250 mg PO BID 02/25/18 [History] Cholecalciferol (Vitamin D3) [D-2000] 2,000 unit PO DAILY 02/25/18 [History] Clotrimazole [Clotrimazole 1%] 15 gram TOP BID PRN 02/25/18 [History] Clotrimazole [Lotrimin AF 1% Crm] 1 percent TOP BID 02/25/18 [History] Dextran 70/Hypromellose [Artificial Tears] 15 ml OP QID PRN 02/25/18 [History] Diclofenac Sodium [Voltaren] 100 gm TP ASDIRECTED 02/25/18 [History] Menthol/Zinc Oxide [Remedy Calazime Protect Paste] 113 gm TP ASDIRECTED [History] Polyethylene Glycol 3350 [MiraLAX] 17 gm PO BEDTIME 02/25/18 [History] Triamcinolone Acetonide [Kenalog 0.1% Crm] 15 gm TOP QID PRN 02/25/18 [History] Gabapentin [Neurontin] 600 mg PO QAM 03/25/18 [History] Gabapentin [Neurontin] 600 mg PO ACDINNER 08/28/18 [History] Docusate Sodium [DOK] 100 mg PO BID 08/29/18 [History] Past Medical History HEENT History: Reports: Cataract, Impaired Vision Other HEENT History: R eye surgery x 4, wears glasses Cardiovascular History: Reports: High Cholesterol, Hypertension Other Cardiovascular History: heart cath Respiratory History: Reports: Sleep Apnea Gastrointestinal History: Reports: Gastritis Other Gastrointestinal History: epigastric pain, duodentitis Genitourinary History: Reports: Urinary Incontinence Other Genitourinary History: dysuria 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 Endocrine/Metabolic History: Reports: Hypothyroidism, Obesity/BMI 30+ Hematologic History: Reports: Anemia - Infectious Disease History Infectious Disease History: Reports: Chicken Pox, Influenza - Past Surgical History HEENT Surgical History: Reports: Cataract Surgery Other HEENT Surgeries/Procedures: right eye blind, left eye still needs to have cataracts Cardiovascular Surgical History: Reports: None Respiratory Surgical History: Reports: None GI Surgical History: Reports: Cholecystectomy Endocrine Surgical History: Reports: None Neurological Surgical History: Reports: None Social & Family History - Family History Family Medical History: Noncontributory Other HEENT Family History: Patient unable to report family medical history. - Tobacco Use Smoking Status *Q: Former Smoker Used Tobacco, but Quit: No Month/Year Tobacco Last Used: 30 years ago Second Hand Smoke Exposure: No - Caffeine Use Caffeine Use: Reports: Coffee, Soda Other Caffeine Use: occassionally Caffeine Use Comment: one cup of coffee every day and 3-4 diet sodas every day - Recreational Drug Use Recreational Drug Use: No - Living Situation & Occupation Living situation: Reports: Alone Occupation: Disabled H&P Review of Systems - Review of Systems: Review Of Systems: See Below General: Reports: Weakness. Denies: Fever, Chills, Malaise, Fatigue HEENT: Reports: No Symptoms, Visual Changes, Other (dry mouth; right eye blindness) Pulmonary: Reports: Shortness of Breath Cardiovascular: Denies: Chest Pain, Dyspnea on Exertion, Lightheadedness Gastrointestinal: Denies: Abdominal Pain, Nausea Musculoskeletal: Reports: Neck Pain, Shoulder Pain, Arm Pain, Back Pain, Leg Pain, Joint Pain, Muscle Pain, Other (b/l hip pain- all chronic) Skin: Reports: Bruising. Denies: Cyanosis, Mottled, Pallor, Diaphoresis, Rash, Erythema, Wound Psychiatric: Denies: Confusion, Mood Lability, Anxiety, Agitation, Hallucinations, Suicidal Ideation Neurological: Reports: Pre-Existing Deficit, Difficulty Walking, Gait Disturbance. Denies: Dizziness, Headache, Numbness, Syncope, Trouble Speaking Hematologic/Lymphatic: Reports: No Symptoms Immunologic: Reports: No Symptoms Exam - Exam Exam: See Below - Vital Signs Vital Signs: Last Vital Signs Temp 36.7 C 08/28/18 23:10 Pulse 88 08/28/18 23:10 Resp 16 08/28/18 23:10 BP 106/61 08/28/18 23:31 Pulse Ox 93 L 08/28/18 23:10 Weight: 99.155 kg - Exam General: Alert, Oriented, Cooperative, Other (Obese) HEENT: Conjunctiva Clear, EACs Clear, Hearing Intact, Mucosa Moist & [place], Nares Patent, Normal Nasal Septum, Posterior Pharynx Clear, Pupils Reactive, Abnormal Pupils, Other (cataract on right eye) Neck: Supple, Trachea Midline Lungs: Normal Respiratory Effort, Decreased Breath Sounds Cardiovascular: Regular Rate, Regular Rhythm GI/Abdominal Exam: Normal Bowel Sounds, Soft, Non-Tender, No Organomegaly, No Distention, No Abnormal Bruit, Other (Obese) (Female) Exam: Deferred Rectal (Female) Exam: Deferred Back Exam: Normal Inspection, Decreased Range of Motion Extremities: Non-Tender, No Pedal Edema, Normal Capillary Refill, Limited Range of Motion, Other (b/l leg atrophy) Peripheral Pulses: 2+: Posterior Tibial (L), Dorsalis Pedis (L), Dorsalis Pedis (R) Skin: Warm, Dry, Intact, Ecchymosis (left upper thigh) Skin Alteration Location (Drawings Not To Scale): 1 - quarter size ulcer 2 - different stages of bruises Neuro Extensive - Mental Status: Oriented x3, Normal Cognition, Memory Intact Neuro Extensive - Motor, Sensory, Reflexes: CN II-XII Intact (very limited due to pain with movement and body habitus), Abnormal Gait Psychiatric: Alert, Normal Affect, Normal Mood. No: Anxious, Depressed, Agitated, Hallucinations, Withdrawal Symptoms - Patient Data Lab Results Last 24 hrs: Laboratory Results - last 24 hr 08/28/18 08/28/18 08/28/18 Range/Units 20:48 20:48 20:48 WBC 7.05 (3.98-10.04) K/mm3 RBC 4.35 (3.98-5.22) M/mm3 Hgb 12.2 (11.2-15.7) gm/L Hct 40.0 (34.1-44.9) % MCV 92.0 (79.4-94.8) fl MCH 28.0 (25.6-32.2) pg MCHC 30.5 L (32.2-35.5) g/dl RDW Std Deviation 54.5 H (36.4-46.3) fL Plt Count 245 (182-369) K/mm3 MPV 10.1 (9.4-12.3) fl Neut % (Auto) (34.0-71.1) % Lymph % (Auto) (19.3-51.7) % [place] % (Auto) (4.7-12.5) % Eos % (Auto) (0.7-5.8) Baso % (Auto) (0.1-1.2) % Neut # (Auto) (1.56-6.13) K/mm3 Lymph # (Auto) (1.18-3.74) K/mm3 [place] # (Auto) (0.24-0.36) K/mm3 Eos # (Auto) (0.04-0.36) K/mm3 Baso # (Auto) (0.01-0.08) K/mm3 Neutrophils % (Manual) 62 H (40-60) % Band Neutrophils % 0 (0-10) % Lymphocytes % (Manual) 34 (20-40) % Atypical Lymphs % 0 % Monocytes % (Manual) 4 (2-10) % Eosinophils % (Manual) 0 L (0.7-5.8) % Basophils % (Manual) 0 L (0.1-1.2) Platelet Estimate Adequate RBC Morph Comment Normal PT 10.0 (9.5-12.1) SECONDS INR < 0.93 APTT 30 (24-31) SECONDS Sodium 140 (136-145) mEq/L Potassium 4.0 (3.5-5.1) mEq/L Chloride 106 (98-107) mEq/L Carbon Dioxide 28 (21-32) mEq/L Anion Gap 10.0 (5-15) BUN 20 H (7-18) mg/dL Creatinine 0.8 (0.55-1.02) mg/dL Est Cr Clr Drug Dosing 66.45 mL/min Estimated GFR (MDRD) > 60 (>60) mL/min BUN/Creatinine Ratio 25.0 H (14-18) Glucose 131 H (80-115) mg/dL Calcium 9.5 (8.5-10.1) mg/dL Magnesium (1.8-2.4) mg/dl Total Bilirubin 0.2 (0.2-1.0) mg/dL AST 14 L (15-37) U/L ALT 22 (14-59) U/L Alkaline Phosphatase 96 (46-116) U/L Creatine Kinase 26 (26-192) U/L C-Reactive Protein 1.4 H* (<1.0) mg/dL Total Protein 6.9 (6.4-8.2) g/dl Albumin 2.9 L (3.4-5.0) g/dl Globulin 4.0 gm/dL Albumin/Globulin Ratio 0.7 L (1-2) Urine Color (Yellow) Urine Appearance (Clear) Urine pH (5.0-8.0) Ur Specific [place] (1.005-1.030) Urine Protein (Negative) Urine Glucose (UA) (Negative) Urine Ketones (Negative) Urine Occult Blood (Negative) Urine Nitrite (Negative) Urine Bilirubin (Negative) Urine Urobilinogen (0.2-1.0) Ur Leukocyte Esterase (Negative) Urine RBC (0-5) /hpf Urine WBC (0-5) /hpf Ur Epithelial Cells (0-5) /hpf Urine Bacteria (FEW) /hpf Urine Mucus (FEW) /hpf Blood Type Gel Antibody Screen 08/28/18 08/28/18 08/29/18 Range/Units 20:48 21:44 06:20 WBC 6.12 (3.98-10.04) K/mm3 RBC 4.28 (3.98-5.22) M/mm3 Hgb 12.1 (11.2-15.7) gm/L Hct 39.8 (34.1-44.9) % MCV 93.0 (79.4-94.8) fl MCH 28.3 (25.6-32.2) pg MCHC 30.4 L (32.2-35.5) g/dl RDW Std Deviation 54.6 H (36.4-46.3) fL Plt Count 241 (182-369) K/mm3 MPV 9.9 (9.4-12.3) fl Neut % (Auto) 45.5 (34.0-71.1) % Lymph % (Auto) 43.8 (19.3-51.7) % [place] % (Auto) 8.5 (4.7-12.5) % Eos % (Auto) 1.5 (0.7-5.8) Baso % (Auto) 0.5 (0.1-1.2) % Neut # (Auto) 2.79 (1.56-6.13) K/mm3 Lymph # (Auto) 2.68 (1.18-3.74) K/mm3 [place] # (Auto) 0.52 H (0.24-0.36) K/mm3 Eos # (Auto) 0.09 (0.04-0.36) K/mm3 Baso # (Auto) 0.03 (0.01-0.08) K/mm3 Neutrophils % (Manual) (40-60) % Band Neutrophils % (0-10) % Lymphocytes % (Manual) (20-40) % Atypical Lymphs % % Monocytes % (Manual) (2-10) % Eosinophils % (Manual) (0.7-5.8) % Basophils % (Manual) (0.1-1.2) Platelet Estimate RBC Morph Comment PT (9.5-12.1) SECONDS INR APTT (24-31) SECONDS Sodium (136-145) mEq/L Potassium (3.5-5.1) mEq/L Chloride (98-107) mEq/L Carbon Dioxide (21-32) mEq/L Anion Gap (5-15) BUN (7-18) mg/dL Creatinine (0.55-1.02) mg/dL Est Cr Clr Drug Dosing mL/min Estimated GFR (MDRD) (>60) mL/min BUN/Creatinine Ratio (14-18) Glucose (80-115) mg/dL Calcium (8.5-10.1) mg/dL Magnesium (1.8-2.4) mg/dl Total Bilirubin (0.2-1.0) mg/dL AST (15-37) U/L ALT (14-59) U/L Alkaline Phosphatase (46-116) U/L Creatine Kinase (26-192) U/L C-Reactive Protein (<1.0) mg/dL Total Protein (6.4-8.2) g/dl Albumin (3.4-5.0) g/dl Globulin gm/dL Albumin/Globulin Ratio (1-2) Urine Color Yellow (Yellow) Urine Appearance Clear (Clear) Urine pH 5.5 (5.0-8.0) Ur Specific [place] 1.025 (1.005-1.030) Urine Protein Negative (Negative) Urine Glucose (UA) Negative (Negative) Urine Ketones Negative (Negative) Urine Occult Blood Negative (Negative) Urine Nitrite Negative (Negative) Urine Bilirubin Negative (Negative) Urine Urobilinogen 0.2 (0.2-1.0) Ur Leukocyte Esterase Negative (Negative) Urine RBC 0-5 (0-5) /hpf Urine WBC 0-5 (0-5) /hpf Ur Epithelial Cells 0-5 (0-5) /hpf Urine Bacteria Few (FEW) /hpf Urine Mucus Not seen (FEW) /hpf Blood Type O NEGATIVE Gel Antibody Screen Negative 08/29/18 Range/Units 06:20 WBC (3.98-10.04) K/mm3 RBC (3.98-5.22) M/mm3 Hgb (11.2-15.7) gm/L Hct (34.1-44.9) % MCV (79.4-94.8) fl MCH (25.6-32.2) pg MCHC (32.2-35.5) g/dl RDW Std Deviation (36.4-46.3) fL Plt Count (182-369) K/mm3 MPV (9.4-12.3) fl Neut % (Auto) (34.0-71.1) % Lymph % (Auto) (19.3-51.7) % [place] % (Auto) (4.7-12.5) % Eos % (Auto) (0.7-5.8) Baso % (Auto) (0.1-1.2) % Neut # (Auto) (1.56-6.13) K/mm3 Lymph # (Auto) (1.18-3.74) K/mm3 [place] # (Auto) (0.24-0.36) K/mm3 Eos # (Auto) (0.04-0.36) K/mm3 Baso # (Auto) (0.01-0.08) K/mm3 Neutrophils % (Manual) (40-60) % Band Neutrophils % (0-10) % Lymphocytes % (Manual) (20-40) % Atypical Lymphs % % Monocytes % (Manual) (2-10) % Eosinophils % (Manual) (0.7-5.8) % Basophils % (Manual) (0.1-1.2) Platelet Estimate RBC Morph Comment PT (9.5-12.1) SECONDS INR APTT (24-31) SECONDS Sodium 141 (136-145) mEq/L Potassium 4.2 (3.5-5.1) mEq/L Chloride 107 (98-107) mEq/L Carbon Dioxide 29 (21-32) mEq/L Anion Gap 9.2 (5-15) BUN 15 (7-18) mg/dL Creatinine 0.7 (0.55-1.02) mg/dL Est Cr Clr Drug Dosing 75.94 mL/min Estimated GFR (MDRD) > 60 (>60) mL/min BUN/Creatinine Ratio 21.4 H (14-18) Glucose 117 H (80-115) mg/dL Calcium 9.3 (8.5-10.1) mg/dL Magnesium 1.9 (1.8-2.4) mg/dl Total Bilirubin (0.2-1.0) mg/dL AST (15-37) U/L ALT (14-59) U/L Alkaline Phosphatase (46-116) U/L Creatine Kinase (26-192) U/L C-Reactive Protein (<1.0) mg/dL Total Protein (6.4-8.2) g/dl Albumin (3.4-5.0) g/dl Globulin gm/dL Albumin/Globulin Ratio (1-2) Urine Color (Yellow) Urine Appearance (Clear) Urine pH (5.0-8.0) Ur Specific [place] (1.005-1.030) Urine Protein (Negative) Urine Glucose (UA) (Negative) Urine Ketones (Negative) Urine Occult Blood (Negative) Urine Nitrite (Negative) Urine Bilirubin (Negative) Urine Urobilinogen (0.2-1.0) Ur Leukocyte Esterase (Negative) Urine RBC (0-5) /hpf Urine WBC (0-5) /hpf Ur Epithelial Cells (0-5) /hpf Urine Bacteria (FEW) /hpf Urine Mucus (FEW) /hpf Blood Type Gel Antibody Screen Result Diagrams: 08/29/18 06:20 08/29/18 06:20 EKG INTERPRETATION EKG Date: 08/28/18 Time: 20:23 Rhythm: NSR Rate (Beats/Min): 98 [place]: Normal P-Wave: Enlarged QT: Normal Problem List Initiated/Reviewed/Updated: Yes Orders Last 24hrs: Active Orders 24 hr Category Date Time Status Admission Status [Patient Status] [ADT] Routine ADT 08/28/18 22:37 Active Height and Weight [RC] 04 Care 08/28/18 23:24 Active Intake and Output [RC] 04,16 Care 08/28/18 23:24 Active Oxygen Therapy [RC] PRN Care 08/28/18 23:24 Active RT Aerosol Therapy [RC] ASDIRECTED Care 08/28/18 23:25 Active Up With Assistance [RC] , Care 08/28/18 23:18 Active VTE/DVT Education [RC] BID Care 08/28/18 23:24 Active Vital Signs [RC] Q4HR Care 08/28/18 23:24 Active Consult to Case Management/Asset Protection Officer [CONS] Cons 08/28/18 23:24 Active Routine Consult to Spiritual Care [CONS] Routine Cons 08/28/18 23:24 Active OT Evaluation and Treatment [CONS] Routine Cons 08/28/18 23:24 Active PT Evaluation and Treatment [CONS] Routine Cons 08/28/18 23:24 Active Regular Diet [DIET] Diet 08/29/18 Breakfast Active BASIC METABOLIC PANEL,BMP [CHEM] AM Lab 08/30/18 05:11 Ordered BASIC METABOLIC PANEL,BMP [CHEM] AM Lab 08/31/18 05:11 Ordered MAGNESIUM [CHEM] AM Lab 08/30/18 05:11 Ordered MAGNESIUM [CHEM] AM Lab 08/31/18 05:11 Ordered ARIPiprazole [Abilify] Med 08/29/18 09:00 Active 20 mg PO DAILY Acetaminophen [Tylenol] Med 08/28/18 23:16 Active 650 mg PO Q6H PRN Acetaminophen [Tylenol] Med 08/28/18 23:20 Active 650 mg PO TID PRN Acetaminophen/HYDROcodone [[place] 325-5 MG] Med 08/28/18 23:24 Active 1 tab PO Q4H PRN Albuterol/Ipratropium [DuoNeb 3.0-0.5 MG/3 ML] Med 08/28/18 23:24 Active 3 ml NEB Q4H PRN Ascorbic Acid [Vitamin C] Med 08/29/18 09:00 Active 250 mg PO BID Benztropine [Cogentin] Med 08/29/18 09:00 Active 0.5 mg PO BID Bisacodyl [Dulcolax] Med 08/28/18 23:24 Active 5 mg PO DAILY PRN Cholecalciferol (Vitamin D3) [Vitamin D3] Med 08/29/18 09:00 Active 2,000 units PO DAILY ClonazePAM [KlonoPIN] Med 08/28/18 23:20 Active 0.5 mg PO TID PRN Clotrimazole Med 08/28/18 23:30 Pending 15 gram TOP ASDIRECTED Clotrimazole [Lotrimin AF 1% Crm] Med 08/29/18 09:00 Pending 1 percent TOP BID Dextran 70/Hypromellose [Artificial Tears] Med 08/28/18 23:30 Pending 15 ml OP ASDIRECTED Docusate Sodium [Colace] Med 08/28/18 23:24 Active 100 mg PO BID PRN Docusate Sodium/Sennosides [Senna Plus] Med 08/29/18 09:00 Active 1 tab PO BID Enoxaparin [Lovenox] Med 08/29/18 09:00 Active 40 mg SUBCUT DAILY FLU Vacc [id number] 36MOS UP/PF [Fluzone Quad [id number] Med 08/29/18 09:00 Once Syringe] 60 mcg IM .ONCE ONE Ferrous Sulfate Med 08/29/18 09:00 Active 325 mg PO BID Folic Acid Med 08/29/18 09:00 Active 1 mg PO DAILY Gabapentin [Neurontin] Med 08/29/18 21:00 Active 1,200 mg PO BEDTIME Gabapentin [Neurontin] Med 08/29/18 16:00 Active 600 mg PO ACDINNER Gabapentin [Neurontin] Med 08/29/18 08:00 Active 600 mg PO QAM HYDROmorphone [Dilaudid] Med 08/28/18 23:24 Active 0.25 mg IVPUSH Q2H PRN LORazepam [Ativan] Med 08/28/18 23:24 Active 1 mg IV Q6H PRN LORazepam [Ativan] Med 08/28/18 23:22 Active 2 mg IVPUSH Q4H PRN Levothyroxine Med 08/29/18 06:00 Active 175 mcg PO ACBREAKFAST Menthol/Zinc Oxide [Remedy Calazime Protect Paste] Med 08/28/18 23:30 Pending 113 gm TP ASDIRECTED Metoprolol Tartrate [Lopressor] Med 08/28/18 23:22 Active 5 mg IVPUSH Q4H PRN Nitroglycerin [Nitrostat] Med 08/28/18 23:20 Active 0.4 mg SL DAILY PRN Ondansetron [Zofran] Med 08/28/18 23:24 Active 4 mg IV Q6H PRN Pharmacy to Dose - Magnesium R [Pharmacy to Dose - Med 08/28/18 23:30 Pending Magnesium Replacement] 1 dose .XX ASDIRECTED Pharmacy to Dose - Potassium R [Pharmacy to Dose - Med 08/28/18 23:30 Pending Potassium Replacement] 1 dose .XX ASDIRECTED Polyethylene Glycol 3350 [MiraLAX] Med 08/29/18 21:00 Active 17 gm PO BEDTIME Potassium Chloride [Klor-Con 10] Med 08/29/18 09:00 Active 10 meq PO DAILY Promethazine [Phenergan] 6.25 mg Med 08/28/18 23:24 Active Sodium Chloride 0.9% [Normal Saline] 50 ml IV Q6H Remove Patch Med 08/29/18 09:00 Active 1 ea TRDERM Q72H Sodium Chloride 0.9% [Saline Flush] Med 08/28/18 23:29 Active 10 ml FLUSH ASDIRECTED PRN Triamcinolone Acetonide [Triamcinolone Acetonide 0.1% Med 08/28/18 23:30 Pending Crm] 0 gm .XX ASDIRECTED Vortioxetine Hydrobromide [Trintellix] Med 08/29/18 09:00 Pending 20 mg PO DAILY fentaNYL [Duragesic] Med 08/29/18 09:00 Active 12 mcg TOP Q72H hydrALAZINE [Apresoline] Med 08/28/18 23:22 Active 20 mg IVPUSH Q4H PRN traZODone Med 08/29/18 21:00 Active 125 mg PO BEDTIME Convert IV to Saline Lock [OM.PC] Routine Oth 08/28/18 23:29 Ordered Code Status [Resuscitation Status] Routine Resus Stat 08/28/18 23:12 Ordered Medication Orders Acetaminophen (Tylenol) 650 mg PO Q6H PRN PRN Reason: Pain/Fever Acetaminophen (Tylenol) 650 mg PO TID PRN PRN Reason: Pain Hydrocodone Bitart/Acetaminophen ([place] 325-5 Mg) 1 tab PO Q4H PRN PRN Reason: Pain (moderate 4-6) Last Admin: 08/29/18 04:31 Dose: 1 tab Albuterol/Ipratropium (Duoneb 3.0-0.5 Mg/3 Ml) 3 ml NEB Q4H PRN PRN Reason: Shortness Of Breath/wheezing Aripiprazole (Abilify) 20 mg PO DAILY [facility] Ascorbic Acid (Vitamin C) 250 mg PO BID KATHERIN Benztropine Mesylate (Cogentin) 0.5 mg PO BID KATHERIN Bisacodyl (Dulcolax) 5 mg PO DAILY PRN PRN Reason: Constipation Cholecalciferol (Vitamin D3) 2,000 units PO DAILY KATHERIN Clonazepam (Klonopin) 0.5 mg PO TID PRN PRN Reason: Anxiety Last Admin: 08/28/18 23:45 Dose: 0.5 mg Docusate Sodium (Colace) 100 mg PO BID PRN PRN Reason: Constipation Enoxaparin Sodium (Lovenox) 40 mg SUBCUT DAILY [facility] Fentanyl (Duragesic) 12 mcg TOP Q72H KATHERIN Ferrous Sulfate (Ferrous Sulfate) 325 mg PO BID KATHERIN Folic Acid (Folic Acid) 1 mg PO DAILY KATHERIN Gabapentin (Neurontin) 1,200 mg PO BEDTIME KATHERIN Gabapentin (Neurontin) 600 mg PO QAM KATHERIN Gabapentin (Neurontin) 600 mg PO ACDINNER KATHERIN Hydralazine HCl (Apresoline) 20 mg IVPUSH Q4H PRN PRN Reason: Hypertension Hydromorphone HCl (Dilaudid) 0.25 mg IVPUSH Q2H PRN PRN Reason: Pain (severe 7-10) Last Admin: 08/29/18 00:48 Dose: 0.25 mg Promethazine HCl 6.25 mg/ (Sodium Chloride) 50.25 mls @ 100 mls/hr IV Q6H PRN PRN Reason: Nausea/Vomiting Influenza Virus Vaccine (Fluzone Quad [id number] Syringe) 60 mcg IM .ONCE ONE Stop: 08/29/18 09:01 Levothyroxine Sodium (Levothyroxine) 175 mcg PO ACBREAKFAST [facility] Last Admin: 08/29/18 04:31 Dose: 175 mcg Lorazepam (Ativan) 2 mg IVPUSH Q4H PRN PRN Reason: Seizures Lorazepam (Ativan) 1 mg IV Q6H PRN PRN Reason: Anxiety Magnesium Sulfate (Pharmacy To Dose - Magnesium Replacement) 1 dose .XX ASDIRECTED [facility] Metoprolol Tartrate (Lopressor) 5 mg IVPUSH Q4H PRN PRN Reason: Tachycardia Miscellaneous Information (Remove Patch) 1 ea TRDERM Q72H [facility] Nitroglycerin (Nitrostat) 0.4 mg SL DAILY PRN PRN Reason: Chest Pain Non-Formulary Medication (Clotrimazole) 15 gram TOP ASDIRECTED [facility] Non-Formulary Medication (Clotrimazole [Lotrimin Af 1% Crm]) 1 percent TOP BID [facility] Non-Formulary Medication (Dextran 70/Hypromellose [Artificial Tears]) 15 ml OP ASDIRECTED [facility] Non-Formulary Medication (Menthol/Zinc Oxide [Remedy Calazime Protect Paste]) 113 gm TP ASDIRECTED [facility] Non-Formulary Medication (Vortioxetine Hydrobromide [Trintellix]) 20 mg PO DAILY [facility] Ondansetron HCl (Zofran) 4 mg IV Q6H PRN PRN Reason: Nausea/Vomiting Polyethylene Glycol (Miralax) 17 gm PO BEDTIME [facility] Potassium Chloride (Pharmacy To Dose - Potassium Replacement) 1 dose .XX ASDIRECTED [facility] Potassium Chloride (Klor-Con 10) 10 meq PO DAILY [facility] Senna/Docusate Sodium (Senna Plus) 1 tab PO BID [facility] Sodium Chloride (Saline Flush) 10 ml FLUSH ASDIRECTED PRN PRN Reason: Keep Vein Open Trazodone HCl (Trazodone) 125 mg PO BEDTIME [facility] Triamcinolone Acetonide (Triamcinolone Acetonide 0.1% Crm) 0 gm .XX ASDIRECTED [facility] Assessment/Plan Comment:: Assessment/Plan: Acute: Recurrent Falls - Lives in an assisted living facility - Has had recurrent falls; had fallen several times a few days - Risk factors: Advanced Diffused OA/DJD, Gait Instability, Chronic Pain Syndrome and Impaired Vision - Usually walks with a walker Inability to Care for Self - Has a daughter in town but she is not involve in her care - Plan for temporary placement until her son in [place] is able to take her 6 months from now Pain Syndrome - Acute on Chronic - 2/2 Recent Falls - Pelvis x-ray report reads severe b/l acetabular protrusion with diffuse joint space narrowing. no acute is definitely appreciated - Femur x-ray report read joint space narrowing also noted within the knee. Bony structure are osteopenic. Nothing acute is definitely appreciated. - Humerus x-ray report reads chronic rotator cuff tear nothing acute is appreciated - Resume home pain regimen Abdominal Lesion/Ulcer - Topical Bacitracin BID - PT consult for wound care Chronic: Impaired Vision HTN HLD GISELA Gastritis/Duodenitis Urinary Incontinence Fibromyalgia Advanced OA/DJD Osteoporosis Rotator Cuff Tear Chronic Pain Syndrome Opioid Dependent Panic Attack Psychosis/Schizophrenia Anxiety Depression Hypothyroidism Anemia Obesity Class II Gait Instability Plan: Admit to the floor-Soft Admit Routine AM Labs Resume Home Meds Aspiration and Fall Precaution Obtain Chart from [facility] in [place] PT/OT eval for recommendations DVT PPx: Lovenox SubQ SW/CM for d/c placement Code status: 1 LOS anticipate > 96 hrs pending placement
[2018-08-29] MEDS ORDERED: Enoxaparin 30 MG/0.3 ML Syringe SUBCUT SCH (09:00)
[2018-08-29] MEDS ORDERED: Clotrimazole 1% Crm 30 GM Tube TOP PRN (09:00)
[2018-08-29] MEDS: Gabapentin 600 MG Tab PO SCH ×3 (09:02→22:40)
[2018-08-29] MEDS: fentaNYL 12 MCG/HR Transdermal Patch TOP SCH (09:36)
[2018-08-29] MEDS: Vortioxetine Hydrobromide [Trintellix] 20 MG PO SCH (11:08)
[2018-08-29] MEDS ORDERED: Diclofenac Sodium 1% Gel 100 GM Tube TOP SCH (11:45)
[2018-08-29] MEDS ORDERED: Carboxymethylcellulose Sodium 1% Ophth Gel 15 ML Bottle EYEBOTH PRN (13:00)
[2018-08-29] MEDS ORDERED: Triamcinolone Acetonide 0.1% Crm 15 GM Tube TOP PRN (13:00)
[2018-08-29] MEDS: Nystatin Topical Powder 15 GM Bottle TOP SCH ×3 (13:18→22:41)
[2018-08-29] MEDS: Docusate Sodium 100 MG Cap PO SCH (22:41)
[2018-08-29] MEDS: traZODone 50 MG Tab PO SCH (22:43)
[2018-08-29] MEDS: Bacitracin/Neomycin/Polymyxin B Oint 15 GM Tube TOP SCH (22:44)
[2018-08-29] MEDS: Polyethylene Glycol 3350 Powder 17 GM Packet PO SCH (22:44)
[2018-08-30] MEDS: Acetaminophen/HYDROcodone 325-5 MG Tab PO PRN ×4 (04:57→21:48)
--- NOTE | 2018-08-30 07:09 | PCM.PN ---
- General Info Date of Service: 08/30/18 Admission Dx/Problem (Free Text): Admission Diagnosis/Problem Admission Diagnosis/Problem Recurrent falls Subjective Update: Follow Up Functional Status: Reports: Pain Controlled, Tolerating Diet, Urinating. Denies : New Symptoms - Patient Data Vitals - Most Recent: Last Vital Signs Temp 36.6 C 08/30/18 04:54 Pulse 92 08/30/18 04:54 Resp 16 08/30/18 04:54 BP 119/77 08/30/18 04:54 Pulse Ox 93 L 08/30/18 04:54 Weight - Most Recent: 100.788 kg I&O - Last 24 Hours: Intake & Output 08/29/18 08/30/18 08/30/18 22:59 06:59 14:59 Intake Total 780 300 Balance 780 300 Lab Results Last 24 Hours: Laboratory Results - last 24 hr 08/29/18 Range/Units 06:20 Sodium 141 (136-145) mEq/L Potassium 4.2 (3.5-5.1) mEq/L Chloride 107 (98-107) mEq/L Carbon Dioxide 29 (21-32) mEq/L Anion Gap 9.2 (5-15) BUN 15 (7-18) mg/dL Creatinine 0.7 (0.55-1.02) mg/dL Est Cr Clr Drug Dosing 75.94 mL/min Estimated GFR (MDRD) > 60 (>60) mL/min BUN/Creatinine Ratio 21.4 H (14-18) Glucose 117 H (80-115) mg/dL Calcium 9.3 (8.5-10.1) mg/dL Magnesium 1.9 (1.8-2.4) mg/dl Med Orders - Current: Current Medications Acetaminophen (Tylenol) 650 mg PO Q6H PRN PRN Reason: Pain/Fever Acetaminophen (Tylenol) 650 mg PO TID PRN PRN Reason: Pain Hydrocodone Bitart/Acetaminophen ([place] 325-5 Mg) 1 tab PO Q4H PRN PRN Reason: Pain (moderate 4-6) Last Admin: 08/30/18 04:57 Dose: 1 tab Albuterol/Ipratropium (Duoneb 3.0-0.5 Mg/3 Ml) 3 ml NEB Q4H PRN PRN Reason: Shortness Of Breath/wheezing Aripiprazole (Abilify) 20 mg PO DAILY [facility] Last Admin: 08/29/18 08:56 Dose: 20 mg Artificial Tears (Refresh Liquigel 1%) 0 ml EYEBOTH QID PRN PRN Reason: DRY EYES Ascorbic Acid (Vitamin C) 250 mg PO BID [facility] Last Admin: 08/29/18 22:40 Dose: 250 mg Benztropine Mesylate (Cogentin) 0.5 mg PO BID [facility] Last Admin: 08/29/18 22:41 Dose: 0.5 mg Bisacodyl (Dulcolax) 5 mg PO DAILY PRN PRN Reason: Constipation Cholecalciferol (Vitamin D3) 2,000 units PO DAILY [facility] Last Admin: 08/29/18 08:56 Dose: 2,000 units Clonazepam (Klonopin) 0.5 mg PO TID PRN PRN Reason: Anxiety Last Admin: 08/28/18 23:45 Dose: 0.5 mg Clotrimazole (Lotrimin Af 1% Crm) 0 gm TOP BID PRN PRN Reason: ITCHING Diclofenac Sodium (Voltaren 1% Gel) 100 gm TOP ASDIRECTED [facility] Docusate Sodium (Colace) 100 mg PO BID PRN PRN Reason: Constipation Last Admin: 08/30/18 04:58 Dose: 100 mg Docusate Sodium (Colace) 100 mg PO BID [facility] Last Admin: 08/29/18 22:41 Dose: 100 mg Enoxaparin Sodium (Lovenox) 40 mg SUBCUT DAILY [facility] Last Admin: 08/29/18 08:57 Dose: 40 mg Fentanyl (Duragesic) 12 mcg TOP Q72H [facility] Last Admin: 08/29/18 09:36 Dose: 12 mcg Ferrous Sulfate (Ferrous Sulfate) 325 mg PO BID [facility] Last Admin: 08/29/18 22:44 Dose: 325 mg Folic Acid (Folic Acid) 1 mg PO DAILY [facility] Last Admin: 08/29/18 08:56 Dose: 1 mg Gabapentin (Neurontin) 1,200 mg PO BEDTIME [facility] Last Admin: 08/29/18 22:40 Dose: 1,200 mg Gabapentin (Neurontin) 600 mg PO QAM [facility] Last Admin: 08/29/18 09:02 Dose: 600 mg Gabapentin (Neurontin) 600 mg PO ACDINNER [facility] Last Admin: 08/29/18 17:00 Dose: 600 mg Hydralazine HCl (Apresoline) 20 mg IVPUSH Q4H PRN PRN Reason: Hypertension Hydromorphone HCl (Dilaudid) 0.25 mg IVPUSH Q2H PRN PRN Reason: Pain (severe 7-10) Last Admin: 08/29/18 11:03 Dose: 0.25 mg Promethazine HCl 6.25 mg/ (Sodium Chloride) 50.25 mls @ 100 mls/hr IV Q6H PRN PRN Reason: Nausea/Vomiting Levothyroxine Sodium (Levothyroxine) 175 mcg PO ACBREAKFAST [facility] Last Admin: 08/30/18 05:00 Dose: 175 mcg Lorazepam (Ativan) 2 mg IVPUSH Q4H PRN PRN Reason: Seizures Lorazepam (Ativan) 1 mg IV Q6H PRN PRN Reason: Anxiety Magnesium Sulfate (Pharmacy To Dose - Magnesium Replacement) 1 dose .XX ASDIRECTED [facility] Metoprolol Tartrate (Lopressor) 5 mg IVPUSH Q4H PRN PRN Reason: Tachycardia Miscellaneous Information (Remove Patch) 1 ea TRDERM Q72H [facility] Last Admin: 08/29/18 11:09 Dose: 1 ea Neomycin/Polymyxin/Bacitracin (Neosporin Oint) 0 gm TOP BID [facility] Last Admin: 08/29/18 22:44 Dose: 1 applic Nitroglycerin (Nitrostat) 0.4 mg SL DAILY PRN PRN Reason: Chest Pain Nystatin (Nystop) 0 gm TOP QID [facility] Last Admin: 08/29/18 22:41 Dose: 1 applic Ondansetron HCl (Zofran) 4 mg IV Q6H PRN PRN Reason: Nausea/Vomiting Menthol/Zinc Oxide [ Remedy Calazime Protect Paste] 113 Gm 0 each TOP ASDIRECTED [facility] Vortioxetine Hydrobromide [ Trintellix] 20 Mg 0 each PO DAILY [facility] Last Admin: 08/29/18 11:08 Dose: 1 each Polyethylene Glycol (Miralax) 17 gm PO BEDTIME [facility] Last Admin: 08/29/18 22:44 Dose: 17 gm Potassium Chloride (Pharmacy To Dose - Potassium Replacement) 1 dose .XX ASDIRECTED [facility] Potassium Chloride (Klor-Con 10) 10 meq PO DAILY [facility] Last Admin: 08/29/18 08:56 Dose: 10 meq Senna/Docusate Sodium (Senna Plus) 1 tab PO BID [facility] Last Admin: 08/29/18 22:43 Dose: 1 tab Sodium Chloride (Saline Flush) 10 ml FLUSH ASDIRECTED PRN PRN Reason: Keep Vein Open Trazodone HCl (Trazodone) 125 mg PO BEDTIME [facility] Last Admin: 08/29/18 22:43 Dose: 125 mg Triamcinolone Acetonide (Triamcinolone Acetonide 0.1% Crm) 0 gm TOP QID PRN PRN Reason: DRYNESS Discontinued Medications Clonazepam (Klonopin) 2 mg PO ONETIME ONE Stop: 08/28/18 22:54 Last Admin: 08/30/18 02:19 Dose: Not Given Enoxaparin Sodium (Lovenox) 30 mg SUBCUT DAILY [facility] Gabapentin (Neurontin) 1,200 mg PO ONETIME ONE Stop: 08/28/18 22:54 Last Admin: 08/28/18 23:44 Dose: 1,200 mg Hydromorphone HCl (Dilaudid) 1 mg IVPUSH ONETIME ONE Stop: 08/28/18 20:15 Last Admin: 08/28/18 20:46 Dose: 1 mg Hydromorphone HCl (Dilaudid) 0.5 mg IVPUSH Q4H PRN PRN Reason: Pain Sodium Chloride (Normal Saline) 1,000 mls @ 150 mls/hr IV ASDIRECTED [facility] Last Admin: 08/28/18 20:44 Dose: 150 mls/hr Influenza Virus Vaccine (Pharmacy To Dose - Influenza Vaccine) 1 each IM ONETIME ONE Stop: 08/28/18 23:13 Influenza Virus Vaccine (Fluzone Quad [id number] Syringe) 60 mcg IM .ONCE ONE Stop: 08/29/18 09:01 Non-Formulary Medication (Clotrimazole) 15 gram TOP ASDIRECTED [facility] Ondansetron HCl (Zofran) 4 mg IVPUSH ONETIME ONE Stop: 08/28/18 20:16 Last Admin: 08/28/18 20:44 Dose: 4 mg Polyethylene Glycol (Miralax) 17 gm PO ONETIME ONE Stop: 08/28/18 22:54 Last Admin: 08/28/18 23:44 Dose: 17 gm - My Orders Last 24 Hours: My Active Orders 08/29/18 08:00 Gabapentin [Neurontin] 600 mg PO QAM 08/29/18 09:00 ARIPiprazole [Abilify] 20 mg PO DAILY Ascorbic Acid [Vitamin C] 250 mg PO BID Benztropine [Cogentin] 0.5 mg PO BID Cholecalciferol (Vitamin D3) [Vitamin D3] 2,000 units PO DAILY Clotrimazole [Lotrimin AF 1% Crm] 0 gm TOP BID PRN Docusate Sodium/Sennosides [Senna Plus] 1 tab PO BID Enoxaparin [Lovenox] 40 mg SUBCUT DAILY Ferrous Sulfate 325 mg PO BID Folic Acid 1 mg PO DAILY Patient's Own Medication [Ptom] 0 each PO DAILY Potassium Chloride [Klor-Con 10] 10 meq PO DAILY Remove Patch 1 ea TRDERM Q72H fentaNYL [Duragesic] 12 mcg TOP Q72H 08/29/18 11:45 Diclofenac Sodium [Voltaren 1% Gel] 100 gm TOP ASDIRECTED 08/29/18 13:00 Carboxymethylcellulose Sodium [Refresh Liquigel 1%] 0 ml EYEBOTH QID PRN Nystatin [Nystop] 0 gm TOP QID Triamcinolone Acetonide [Triamcinolone Acetonide 0.1% Crm] 0 gm TOP QID PRN 08/29/18 16:00 Gabapentin [Neurontin] 600 mg PO ACDINNER 08/29/18 16:22 Consult to Physical Therapy [PT Evaluation and Treatment] [CONS] Routine 08/29/18 17:52 Heat Therapy [OM.PC] Routine 08/29/18 21:00 Bacitracin/Neomycin/Polymyxin [Neosporin Oint] 0 gm TOP BID Docusate Sodium [Colace] 100 mg PO BID Gabapentin [Neurontin] 1,200 mg PO BEDTIME Polyethylene Glycol 3350 [MiraLAX] 17 gm PO BEDTIME traZODone 125 mg PO BEDTIME 08/29/18 Breakfast Regular Diet [DIET] 08/30/18 06:20 A1C [GLYCOSYLATED HEMOGLOBIN,HGBA1C] [CHEM] AM BASIC METABOLIC PANEL,BMP [CHEM] AM MAGNESIUM [CHEM] AM VITAMIN D,25-HYDROXY [CHEM] AM 08/31/18 05:11 BASIC METABOLIC PANEL,BMP [CHEM] AM MAGNESIUM [CHEM] AM - Plan Plan:: Assessment/Plan: Acute: Recurrent Falls - Lives in an assisted living facility - Has had recurrent falls; had fallen several times a few days - Risk factors: Advanced Diffused OA/DJD, Gait Instability, Chronic Pain Syndrome and Impaired Vision - Usually walks with a walker Inability to Care for Self - Has a daughter in town but she is not involve in her care - Plan for temporary placement until her son in [place] is able to take her 6 months from now Pain Syndrome - Acute on Chronic - 2/2 Recent Falls - Pelvis x-ray report reads severe b/l acetabular protrusion with diffuse joint space narrowing. no acute is definitely appreciated - Femur x-ray report read joint space narrowing also noted within the knee. Bony structure are osteopenic. Nothing acute is definitely appreciated. - Humerus x-ray report reads chronic rotator cuff tear nothing acute is appreciated - Resume home pain regimen Abdominal Lesion/Ulcer - Topical Bacitracin BID - PT consult for wound care Chronic: Impaired Vision HTN HLD GISELA Gastritis/Duodenitis Urinary Incontinence Fibromyalgia Advanced OA/DJD Osteoporosis Rotator Cuff Tear Chronic Pain Syndrome Opioid Dependent Panic Attack Psychosis/Schizophrenia Anxiety Depression Hypothyroidism Anemia Obesity Class II Gait Instability Plan: Admit to the floor-Soft Admit Routine AM Labs Resume Home Meds Aspiration and Fall Precaution Obtain Chart from [facility] in [place] PT/OT juan for recommendations DVT PPx: Lovenox SubQ SW/CM for d/c placement Code status: 1 LOS anticipate > 96 hrs pending placement
[2018-08-30 07:32] LABS: HEMOGLOBIN A1C 5.9 % (4.50-6.20)
[2018-08-30 07:38] LABS: VITAMIN D,25-HYDROXY 27.4 ng/ml (30.0-100.0)
[2018-08-30] MEDS: Docusate Sodium 100 MG Cap PO SCH ×2 (08:40→21:31)
[2018-08-30] MEDS: Benztropine 1 MG Tab PO SCH ×2 (08:40→21:30)
[2018-08-30] MEDS: Ascorbic Acid 500 MG Tab PO SCH ×2 (08:40→21:28)
[2018-08-30] MEDS: Potassium Chloride 10 MEQ Tab.ER PO SCH (08:40)
[2018-08-30] MEDS: ARIPiprazole 10 MG Tab PO SCH (08:41)
[2018-08-30] MEDS: Ferrous Sulfate 325 MG Tab PO SCH ×2 (08:41→21:31)
[2018-08-30] MEDS: Folic Acid 1 MG Tab PO SCH (08:41)
[2018-08-30] MEDS: Cholecalciferol (Vitamin D3) 1,000 Unit Tab PO SCH (08:41)
[2018-08-30] MEDS: Gabapentin 600 MG Tab PO SCH ×3 (08:41→21:32)
[2018-08-30] MEDS: Bacitracin/Neomycin/Polymyxin B Oint 15 GM Tube TOP SCH ×2 (08:42→21:32)
[2018-08-30] MEDS: Vortioxetine Hydrobromide [Trintellix] 20 MG PO SCH (08:42)
[2018-08-30] MEDS: Nystatin Topical Powder 15 GM Bottle TOP SCH ×4 (08:42→21:33)
[2018-08-30] MEDS: Enoxaparin 40 MG/0.4 ML Syringe SUBCUT SCH (08:42)
--- NOTE | 2018-08-30 08:57 | PCM.PN ---
- General Info Date of Service: 08/30/18 Admission Dx/Problem (Free Text): Admission Diagnosis/Problem Admission Diagnosis/Problem Recurrent falls Subjective Update: In to see Rosalina. She reports she is sore all over, however she does not appear to be in any acute pain. She converses freely and does not appear to be in any distress. PT/OT have been seeing her and are recommending senior care SNF placement. [employer] ordered as RN has had some concerns over her eating habits. Functional Status: Reports: Pain Controlled, Tolerating Diet, Urinating. Denies : Ambulating (2/2 pain), New Symptoms - Review of Systems General: Reports: Weakness, Fatigue. Denies: Fever, Malaise, Chills HEENT: Reports: No Symptoms. Denies: Headaches, Sore Throat Pulmonary: Reports: No Symptoms. Denies: Shortness of Breath, Pleuritic Chest Pain, Cough, Sputum, Wheezing Cardiovascular: Reports: No Symptoms. Denies: Chest Pain, Palpitations, Dyspnea on Exertion, Edema Gastrointestinal: Reports: No Symptoms. Denies: Abdominal Pain, Constipation, Diarrhea, Nausea Genitourinary: Reports: No Symptoms Musculoskeletal: Reports: Shoulder Pain, Back Pain, Leg Pain, Joint Pain Skin: Reports: No Symptoms Neurological: Reports: No Symptoms, Difficulty Walking, Gait Disturbance. Denies: Confusion, Headache, Numbness, Paresthesia, Seizure, Syncope, Tremors, Trouble Speaking Psychiatric: Reports: No Symptoms - Patient Data Vitals - Most Recent: Last Vital Signs Temp 97.7 F 08/30/18 07:07 Pulse 85 08/30/18 07:07 Resp 14 08/30/18 07:07 BP 103/50 L 08/30/18 07:07 Pulse Ox 97 08/30/18 07:07 Weight - Most Recent: 222 lb 3.2 oz I&O - Last 24 Hours: Intake & Output 08/29/18 08/30/18 08/30/18 22:59 06:59 14:59 Intake Total 780 300 Balance 780 300 Lab Results Last 24 Hours: Laboratory Results - last 24 hr 08/30/18 08/30/18 Range/Units 06:20 06:20 Sodium 140 (136-145) mEq/L Potassium 4.2 (3.5-5.1) mEq/L Chloride 105 (98-107) mEq/L Carbon Dioxide 29 (21-32) mEq/L Anion Gap 10.2 (5-15) BUN 15 (7-18) mg/dL Creatinine 0.7 (0.55-1.02) mg/dL Est Cr Clr Drug Dosing 75.94 mL/min Estimated GFR (MDRD) > 60 (>60) mL/min BUN/Creatinine Ratio 21.4 H (14-18) Glucose 99 (80-115) mg/dL Hemoglobin A1c 5.90 (4.50-6.20) % Calcium 9.7 (8.5-10.1) mg/dL Magnesium 2.0 (1.8-2.4) mg/dl Vitamin D 25-Hydroxy 27.4 L (30.0-100.0) ng/ml Med Orders - Current: Current Medications Acetaminophen (Tylenol) 650 mg PO Q6H PRN PRN Reason: Pain/Fever Acetaminophen (Tylenol) 650 mg PO TID PRN PRN Reason: Pain Hydrocodone Bitart/Acetaminophen ([place] 325-5 Mg) 1 tab PO Q4H PRN PRN Reason: Pain (moderate 4-6) Last Admin: 08/30/18 08:39 Dose: 1 tab Albuterol/Ipratropium (Duoneb 3.0-0.5 Mg/3 Ml) 3 ml NEB Q4H PRN PRN Reason: Shortness Of Breath/wheezing Aripiprazole (Abilify) 20 mg PO DAILY [facility] Last Admin: 08/30/18 08:41 Dose: 20 mg Artificial Tears (Refresh Liquigel 1%) 0 ml EYEBOTH QID PRN PRN Reason: DRY EYES Ascorbic Acid (Vitamin C) 250 mg PO BID [facility] Last Admin: 08/30/18 08:40 Dose: 250 mg Benztropine Mesylate (Cogentin) 0.5 mg PO BID [facility] Last Admin: 08/30/18 08:40 Dose: 0.5 mg Bisacodyl (Dulcolax) 5 mg PO DAILY PRN PRN Reason: Constipation Cholecalciferol (Vitamin D3) 2,000 units PO DAILY [facility] Last Admin: 08/30/18 08:41 Dose: 2,000 units Clonazepam (Klonopin) 0.5 mg PO TID PRN PRN Reason: Anxiety Last Admin: 08/28/18 23:45 Dose: 0.5 mg Clotrimazole (Lotrimin Af 1% Crm) 0 gm TOP BID PRN PRN Reason: ITCHING Diclofenac Sodium (Voltaren 1% Gel) 100 gm TOP ASDIRECTED [facility] Docusate Sodium (Colace) 100 mg PO BID PRN PRN Reason: Constipation Last Admin: 08/30/18 04:58 Dose: 100 mg Docusate Sodium (Colace) 100 mg PO BID [facility] Last Admin: 08/30/18 08:40 Dose: 100 mg Enoxaparin Sodium (Lovenox) 40 mg SUBCUT DAILY [facility] Last Admin: 08/30/18 08:42 Dose: 40 mg Fentanyl (Duragesic) 12 mcg TOP Q72H [facility] Last Admin: 08/29/18 09:36 Dose: 12 mcg Ferrous Sulfate (Ferrous Sulfate) 325 mg PO BID [facility] Last Admin: 08/30/18 08:41 Dose: 325 mg Folic Acid (Folic Acid) 1 mg PO DAILY [facility] Last Admin: 08/30/18 08:41 Dose: 1 mg Gabapentin (Neurontin) 1,200 mg PO BEDTIME [facility] Last Admin: 08/29/18 22:40 Dose: 1,200 mg Gabapentin (Neurontin) 600 mg PO QAM [facility] Last Admin: 08/30/18 08:41 Dose: 600 mg Gabapentin (Neurontin) 600 mg PO ACDINNER [facility] Last Admin: 08/29/18 17:00 Dose: 600 mg Hydralazine HCl (Apresoline) 20 mg IVPUSH Q4H PRN PRN Reason: Hypertension Hydromorphone HCl (Dilaudid) 0.25 mg IVPUSH Q2H PRN PRN Reason: Pain (severe 7-10) Last Admin: 08/29/18 11:03 Dose: 0.25 mg Promethazine HCl 6.25 mg/ (Sodium Chloride) 50.25 mls @ 100 mls/hr IV Q6H PRN PRN Reason: Nausea/Vomiting Levothyroxine Sodium (Levothyroxine) 175 mcg PO ACBREAKFAST [facility] Last Admin: 08/30/18 05:00 Dose: 175 mcg Lorazepam (Ativan) 2 mg IVPUSH Q4H PRN PRN Reason: Seizures Lorazepam (Ativan) 1 mg IV Q6H PRN PRN Reason: Anxiety Magnesium Sulfate (Pharmacy To Dose - Magnesium Replacement) 1 dose .XX ASDIRECTED [facility] Metoprolol Tartrate (Lopressor) 5 mg IVPUSH Q4H PRN PRN Reason: Tachycardia Miscellaneous Information (Remove Patch) 1 ea TRDERM Q72H [facility] Last Admin: 08/29/18 11:09 Dose: 1 ea Neomycin/Polymyxin/Bacitracin (Neosporin Oint) 0 gm TOP BID [facility] Last Admin: 08/30/18 08:42 Dose: 1 applic Nitroglycerin (Nitrostat) 0.4 mg SL DAILY PRN PRN Reason: Chest Pain Nystatin (Nystop) 0 gm TOP QID [facility] Last Admin: 08/30/18 08:42 Dose: 1 applic Ondansetron HCl (Zofran) 4 mg IV Q6H PRN PRN Reason: Nausea/Vomiting Menthol/Zinc Oxide [ Remedy Calazime Protect Paste] 113 Gm 0 each TOP ASDIRECTED [facility] Vortioxetine Hydrobromide [ Trintellix] 20 Mg 0 each PO DAILY [facility] Last Admin: 08/30/18 08:42 Dose: 1 each Polyethylene Glycol (Miralax) 17 gm PO BEDTIME [facility] Last Admin: 08/29/18 22:44 Dose: 17 gm Potassium Chloride (Pharmacy To Dose - Potassium Replacement) 1 dose .XX ASDIRECTED [facility] Potassium Chloride (Klor-Con 10) 10 meq PO DAILY [facility] Last Admin: 08/30/18 08:40 Dose: 10 meq Senna/Docusate Sodium (Senna Plus) 1 tab PO BID [facility] Last Admin: 08/30/18 08:40 Dose: 1 tab Sodium Chloride (Saline Flush) 10 ml FLUSH ASDIRECTED PRN PRN Reason: Keep Vein Open Trazodone HCl (Trazodone) 125 mg PO BEDTIME [facility] Last Admin: 08/29/18 22:43 Dose: 125 mg Triamcinolone Acetonide (Triamcinolone Acetonide 0.1% Crm) 0 gm TOP QID PRN PRN Reason: DRYNESS Discontinued Medications Clonazepam (Klonopin) 2 mg PO ONETIME ONE Stop: 08/28/18 22:54 Last Admin: 08/30/18 02:19 Dose: Not Given Enoxaparin Sodium (Lovenox) 30 mg SUBCUT DAILY [facility] Gabapentin (Neurontin) 1,200 mg PO ONETIME ONE Stop: 08/28/18 22:54 Last Admin: 08/28/18 23:44 Dose: 1,200 mg Hydromorphone HCl (Dilaudid) 1 mg IVPUSH ONETIME ONE Stop: 08/28/18 20:15 Last Admin: 08/28/18 20:46 Dose: 1 mg Hydromorphone HCl (Dilaudid) 0.5 mg IVPUSH Q4H PRN PRN Reason: Pain Sodium Chloride (Normal Saline) 1,000 mls @ 150 mls/hr IV ASDIRECTED [facility] Last Admin: 08/28/18 20:44 Dose: 150 mls/hr Influenza Virus Vaccine (Pharmacy To Dose - Influenza Vaccine) 1 each IM ONETIME ONE Stop: 08/28/18 23:13 Influenza Virus Vaccine (Fluzone Quad [id number] Syringe) 60 mcg IM .ONCE ONE Stop: 08/29/18 09:01 Non-Formulary Medication (Clotrimazole) 15 gram TOP ASDIRECTED [facility] Ondansetron HCl (Zofran) 4 mg IVPUSH ONETIME ONE Stop: 08/28/18 20:16 Last Admin: 08/28/18 20:44 Dose: 4 mg Polyethylene Glycol (Miralax) 17 gm PO ONETIME ONE Stop: 08/28/18 22:54 Last Admin: 08/28/18 23:44 Dose: 17 gm - Exam Quality Assessment: DVT Prophylaxis General: Alert, Oriented, Cooperative, No Acute Distress HEENT: Pupils Equal, Pupils Reactive, EOMI, Mucous Membr. Moist/[place] Neck: Supple, Trachea Midline Lungs: Clear to Auscultation, Normal Respiratory Effort Cardiovascular: Regular Rate, Regular Rhythm GI/Abdominal Exam: Normal Bowel Sounds, Soft, Non-Tender, No Organomegaly, No Distention (Female) Exam: Deferred Back Exam: Normal Inspection, Decreased Range of Motion Extremities: Normal Inspection, Limited Range of Motion (2/2 pain ) Peripheral Pulses: 1+: Dorsalis Pedis (L), Dorsalis Pedis (R), 2+: Radial (L), Radial (R) Skin: Warm, Dry, Intact Wound/Incisions: No Drainage, Erythema Improving Neurological: No New Focal Deficit Psy/Mental Status: Alert, Normal Affect, Normal Mood - Problem List & Annotations (1) Contusion of right hip and thigh SNOMED Code(s): 516810717 Code(s): S70.01XA - CONTUSION OF RIGHT HIP, INITIAL ENCOUNTER; S70.11XA - CONTUSION OF RIGHT THIGH, INITIAL ENCOUNTER Status: Acute Current Visit: Yes Qualifiers: Encounter type: initial encounter Qualified Code(s): S70.01XA - Contusion of right hip, initial encounter; S70.11XA - Contusion of right thigh, initial encounter (2) Contusion of right shoulder or upper extremity SNOMED Code(s): 40150531 Code(s): VBP1715 - Status: Acute Current Visit: Yes (3) Degenerative arthritis of hip SNOMED Code(s): 000749948 Code(s): M16.9 - OSTEOARTHRITIS OF HIP, UNSPECIFIED Status: Acute Current Visit: Yes Qualifiers: Osteoarthritis type: primary Laterality: bilateral Qualified Code(s): M16.0 - Bilateral primary osteoarthritis of hip (4) Degenerative arthritis of knee, bilateral SNOMED Code(s): 220874252 Code(s): M17.0 - BILATERAL PRIMARY OSTEOARTHRITIS OF KNEE Status: Acute Current Visit: Yes Qualifiers: Osteoarthritis type: primary Qualified Code(s): M17.0 - Bilateral primary osteoarthritis of knee (5) Fall as cause of accidental injury at home as place of occurrence SNOMED Code(s): 25820858 Code(s): W19.XXXA - UNSPECIFIED FALL, INITIAL ENCOUNTER; Y92.009 - UNSP PLACE IN UNSP NON-INSTITUT (PRIVATE) RESIDENCE PLACE Status: Acute Current Visit: Yes Qualifiers: Encounter type: initial encounter Qualified Code(s): W19.XXXA - Unspecified fall, initial encounter; Y92.009 - Unspecified place in unspecified non-institutional (private) residence as the place of occurrence of the external cause (6) Schizophrenia in full remission with history of multiple episodes SNOMED Code(s): 8026029, 146806939 Code(s): F20.9 - SCHIZOPHRENIA, UNSPECIFIED Status: Acute Current Visit: Yes (7) Hospital admission due to social situation SNOMED Code(s): 058410501 Code(s): Z60.9 - PROBLEM RELATED TO SOCIAL ENVIRONMENT, UNSPECIFIED Status : Acute Priority: High Current Visit: Yes (8) Pain syndrome, chronic SNOMED Code(s): 806109981 Code(s): G89.4 - CHRONIC PAIN SYNDROME Status: Chronic Priority: High Current Visit: Yes (9) Skin ulcer of abdomen SNOMED Code(s): 627941910, 211122532 Code(s): L98.499 - NON-PRESSURE CHRONIC ULCER OF SKIN OF SITES W UNSP SEVERITY Status: Chronic Priority: High Current Visit: Yes Qualifiers: Non-pressure ulcer stage: limited to breakdown of skin Qualified Code(s): L98.491 - Non-pressure chronic ulcer of skin of other sites limited to breakdown of skin - Problem List Review Problem List Initiated/Reviewed/Updated: Yes - My Orders Last 24 Hours: My Active Orders 08/30/18 07:34 Consult to [employer] [CONS] Routine - Plan Plan:: Assessment/Plan: Acute: Recurrent Falls - Lives in an assisted living facility - Has had recurrent falls; had fallen several times a few days - Risk factors: Advanced Diffused OA/DJD, Gait Instability, Chronic Pain Syndrome and Impaired Vision - Usually walks with a walker Inability to Care for Self - Has a daughter in [facility] but she is not involve in her care - Plan for temporary placement until her son in [place] is able to take her 6 months from now Pain Syndrome - Acute on Chronic - 2/2 Recent Falls - Pelvis x-ray report reads severe b/l acetabular protrusion with diffuse joint space narrowing. no acute is definitely appreciated - Femur x-ray report read joint space narrowing also noted within the knee. Bony structure are osteopenic. Nothing acute is definitely appreciated. - Humerus x-ray report reads chronic rotator cuff tear nothing acute is appreciated - Resume home pain regimen - Obtain old pain clinic records - PRN meds as needed Abdominal Lesion/Ulcer - Topical Bacitracin BID - PT consult for wound care Chronic: Impaired Vision HTN HLD GISELA Gastritis/Duodenitis Urinary Incontinence Fibromyalgia Advanced OA/DJD Osteoporosis Rotator Cuff Tear Chronic Pain Syndrome Opioid Dependent Panic Attack Psychosis/Schizophrenia Anxiety Depression Hypothyroidism Anemia Obesity Class II Gait Instability Plan: Admit to the floor-Soft Admit Routine AM Labs Resume Home Meds Aspiration and Fall Precaution Obtain Chart from [facility] in [place] PT/OT eval for recommendations DVT PPx: Lovenox SubQ SW/CM for d/c placement Code status: 1 LOS anticipate > 96 hrs pending placement
[2018-08-30] MEDS: traZODone 50 MG Tab PO SCH (21:29)
[2018-08-30] MEDS: Polyethylene Glycol 3350 Powder 17 GM Packet PO SCH (21:32)
[2018-08-31] MEDS: Acetaminophen/HYDROcodone 325-5 MG Tab PO PRN ×3 (06:05→16:18)
--- NOTE | 2018-08-31 06:32 | PCM.PN ---
- General Info Date of Service: 08/31/18 Subjective Update: In to see Rosalina with Dr. Gomez. No concerns from patient. Nursing and Executive Office Manager have concerns over amount of food she is consuming. Will change to CCD 60 diet at recommendation of senior project manager engineering. Otherwise she remains clinically stable and is pending placement. Functional Status: Reports: Pain Controlled, Tolerating Diet, Urinating. Denies : Ambulating, New Symptoms - Review of Systems General: Reports: Weakness. Denies: Fever, Fatigue, Malaise, Chills HEENT: Reports: No Symptoms. Denies: Headaches, Sore Throat Pulmonary: Reports: No Symptoms. Denies: Shortness of Breath, Pleuritic Chest Pain, Cough, Sputum, Wheezing Cardiovascular: Reports: No Symptoms. Denies: Chest Pain, Palpitations, Dyspnea on Exertion, Edema Gastrointestinal: Reports: No Symptoms. Denies: Abdominal Pain, Constipation, Diarrhea, Nausea, Vomiting Genitourinary: Reports: No Symptoms. Denies: Pain Musculoskeletal: Reports: Shoulder Pain, Back Pain, Leg Pain, Joint Pain Skin: Reports: No Symptoms Neurological: Reports: No Symptoms, Difficulty Walking, Gait Disturbance. Denies: Confusion, Dizziness, Headache, Seizure, Syncope, Trouble Speaking, Change in Speech Psychiatric: Reports: No Symptoms - Patient Data Vitals - Most Recent: Last Vital Signs Temp 97.5 F 08/31/18 02:16 Pulse 82 08/31/18 02:16 Resp 18 08/31/18 02:16 BP 102/43 L 08/31/18 02:16 Pulse Ox 94 L 08/31/18 02:16 Weight - Most Recent: 225 lb 3.2 oz I&O - Last 24 Hours: Intake & Output 08/30/18 08/30/18 08/31/18 14:59 22:59 06:59 Intake Total 700 1100 650 Output Total 250 1400 Balance 700 850 -750 Lab Results Last 24 Hours: Laboratory Results - last 24 hr 08/30/18 08/30/18 Range/Units 06:20 06:20 Sodium 140 (136-145) mEq/L Potassium 4.2 (3.5-5.1) mEq/L Chloride 105 (98-107) mEq/L Carbon Dioxide 29 (21-32) mEq/L Anion Gap 10.2 (5-15) BUN 15 (7-18) mg/dL Creatinine 0.7 (0.55-1.02) mg/dL Est Cr Clr Drug Dosing 75.94 mL/min Estimated GFR (MDRD) > 60 (>60) mL/min BUN/Creatinine Ratio 21.4 H (14-18) Glucose 99 (80-115) mg/dL Hemoglobin A1c 5.90 (4.50-6.20) % Calcium 9.7 (8.5-10.1) mg/dL Magnesium 2.0 (1.8-2.4) mg/dl Vitamin D 25-Hydroxy 27.4 L (30.0-100.0) ng/ml Med Orders - Current: Current Medications Acetaminophen (Tylenol) 650 mg PO Q6H PRN PRN Reason: Pain/Fever Acetaminophen (Tylenol) 650 mg PO TID PRN PRN Reason: Pain Hydrocodone Bitart/Acetaminophen ([place] 325-5 Mg) 1 tab PO Q4H PRN PRN Reason: Pain (moderate 4-6) Last Admin: 08/31/18 06:05 Dose: 1 tab Albuterol/Ipratropium (Duoneb 3.0-0.5 Mg/3 Ml) 3 ml NEB Q4H PRN PRN Reason: Shortness Of Breath/wheezing Aripiprazole (Abilify) 20 mg PO DAILY [facility] Last Admin: 08/30/18 08:41 Dose: 20 mg Artificial Tears (Refresh Liquigel 1%) 0 ml EYEBOTH QID PRN PRN Reason: DRY EYES Ascorbic Acid (Vitamin C) 250 mg PO BID [facility] Last Admin: 08/30/18 21:28 Dose: 250 mg Benztropine Mesylate (Cogentin) 0.5 mg PO BID [facility] Last Admin: 08/30/18 21:30 Dose: 0.5 mg Bisacodyl (Dulcolax) 5 mg PO DAILY PRN PRN Reason: Constipation Cholecalciferol (Vitamin D3) 2,000 units PO DAILY [facility] Last Admin: 08/30/18 08:41 Dose: 2,000 units Clonazepam (Klonopin) 0.5 mg PO TID PRN PRN Reason: Anxiety Last Admin: 08/28/18 23:45 Dose: 0.5 mg Clotrimazole (Lotrimin Af 1% Crm) 0 gm TOP BID PRN PRN Reason: ITCHING Docusate Sodium (Colace) 100 mg PO BID PRN PRN Reason: Constipation Last Admin: 08/30/18 04:58 Dose: 100 mg Docusate Sodium (Colace) 100 mg PO BID [facility] Last Admin: 08/30/18 21:31 Dose: 100 mg Enoxaparin Sodium (Lovenox) 40 mg SUBCUT DAILY [facility] Last Admin: 08/30/18 08:42 Dose: 40 mg Fentanyl (Duragesic) 12 mcg TOP Q72H [facility] Last Admin: 08/29/18 09:36 Dose: 12 mcg Ferrous Sulfate (Ferrous Sulfate) 325 mg PO BID [facility] Last Admin: 08/30/18 21:31 Dose: 325 mg Folic Acid (Folic Acid) 1 mg PO DAILY [facility] Last Admin: 08/30/18 08:41 Dose: 1 mg Gabapentin (Neurontin) 1,200 mg PO BEDTIME [facility] Last Admin: 08/30/18 21:32 Dose: 1,200 mg Gabapentin (Neurontin) 600 mg PO QAM [facility] Last Admin: 08/30/18 08:41 Dose: 600 mg Gabapentin (Neurontin) 600 mg PO ACDINNER [facility] Last Admin: 08/30/18 16:22 Dose: 600 mg Hydralazine HCl (Apresoline) 20 mg IVPUSH Q4H PRN PRN Reason: Hypertension Promethazine HCl 6.25 mg/ (Sodium Chloride) 50.25 mls @ 100 mls/hr IV Q6H PRN PRN Reason: Nausea/Vomiting Levothyroxine Sodium (Levothyroxine) 175 mcg PO ACBREAKFAST [facility] Last Admin: 08/31/18 06:05 Dose: 175 mcg Lorazepam (Ativan) 2 mg IVPUSH Q4H PRN PRN Reason: Seizures Lorazepam (Ativan) 1 mg IV Q6H PRN PRN Reason: Anxiety Magnesium Sulfate (Pharmacy To Dose - Magnesium Replacement) 1 dose .XX ASDIRECTED [facility] Metoprolol Tartrate (Lopressor) 5 mg IVPUSH Q4H PRN PRN Reason: Tachycardia Miscellaneous Information (Remove Patch) 1 ea TRDERM Q72H [facility] Last Admin: 08/29/18 11:09 Dose: 1 ea Neomycin/Polymyxin/Bacitracin (Neosporin Oint) 0 gm TOP BID [facility] Last Admin: 08/30/18 21:32 Dose: 1 applic Nitroglycerin (Nitrostat) 0.4 mg SL DAILY PRN PRN Reason: Chest Pain Nystatin (Nystop) 0 gm TOP QID [facility] Last Admin: 08/30/18 21:33 Dose: 1 applic Ondansetron HCl (Zofran) 4 mg IV Q6H PRN PRN Reason: Nausea/Vomiting Menthol/Zinc Oxide [ Remedy Calazime Protect Paste] 113 Gm 0 each TOP ASDIRECTED [facility] Vortioxetine Hydrobromide [ Trintellix] 20 Mg 0 each PO DAILY [facility] Last Admin: 08/30/18 08:42 Dose: 1 each Polyethylene Glycol (Miralax) 17 gm PO BEDTIME [facility] Last Admin: 08/30/18 21:32 Dose: 17 gm Potassium Chloride (Pharmacy To Dose - Potassium Replacement) 1 dose .XX ASDIRECTED [facility] Potassium Chloride (Klor-Con 10) 10 meq PO DAILY [facility] Last Admin: 08/30/18 08:40 Dose: 10 meq Senna/Docusate Sodium (Senna Plus) 1 tab PO BID [facility] Last Admin: 08/30/18 21:31 Dose: 1 tab Sodium Chloride (Saline Flush) 10 ml FLUSH ASDIRECTED PRN PRN Reason: Keep Vein Open Trazodone HCl (Trazodone) 125 mg PO BEDTIME [facility] Last Admin: 08/30/18 21:29 Dose: 125 mg Triamcinolone Acetonide (Triamcinolone Acetonide 0.1% Crm) 0 gm TOP QID PRN PRN Reason: DRYNESS Discontinued Medications Clonazepam (Klonopin) 2 mg PO ONETIME ONE Stop: 08/28/18 22:54 Last Admin: 08/30/18 02:19 Dose: Not Given Diclofenac Sodium (Voltaren 1% Gel) 100 gm TOP ASDIRECTED [facility] Enoxaparin Sodium (Lovenox) 30 mg SUBCUT DAILY [facility] Gabapentin (Neurontin) 1,200 mg PO ONETIME ONE Stop: 08/28/18 22:54 Last Admin: 08/28/18 23:44 Dose: 1,200 mg Hydromorphone HCl (Dilaudid) 1 mg IVPUSH ONETIME ONE Stop: 08/28/18 20:15 Last Admin: 08/28/18 20:46 Dose: 1 mg Hydromorphone HCl (Dilaudid) 0.5 mg IVPUSH Q4H PRN PRN Reason: Pain Hydromorphone HCl (Dilaudid) 0.25 mg IVPUSH Q2H PRN PRN Reason: Pain (severe 7-10) Last Admin: 08/29/18 11:03 Dose: 0.25 mg Sodium Chloride (Normal Saline) 1,000 mls @ 150 mls/hr IV ASDIRECTED [facility] Last Admin: 08/28/18 20:44 Dose: 150 mls/hr Influenza Virus Vaccine (Pharmacy To Dose - Influenza Vaccine) 1 each IM ONETIME ONE Stop: 08/28/18 23:13 Influenza Virus Vaccine (Fluzone Quad [id number] Syringe) 60 mcg IM .ONCE ONE Stop: 08/29/18 09:01 Non-Formulary Medication (Clotrimazole) 15 gram TOP ASDIRECTED [facility] Ondansetron HCl (Zofran) 4 mg IVPUSH ONETIME ONE Stop: 08/28/18 20:16 Last Admin: 08/28/18 20:44 Dose: 4 mg Polyethylene Glycol (Miralax) 17 gm PO ONETIME ONE Stop: 08/28/18 22:54 Last Admin: 08/28/18 23:44 Dose: 17 gm - Exam Quality Assessment: DVT Prophylaxis General: Alert, Oriented, Cooperative, No Acute Distress HEENT: Pupils Equal, Pupils Reactive, EOMI, Mucous Membr. Moist/[place] Neck: Supple, Trachea Midline, No JVD Lungs: Clear to Auscultation, Normal Respiratory Effort Cardiovascular: Regular Rate, Regular Rhythm GI/Abdominal Exam: Normal Bowel Sounds, Soft, Non-Tender, No Organomegaly, No Distention (Female) Exam: Deferred Back Exam: Normal Inspection, Decreased Range of Motion Extremities: Normal Inspection, Non-Tender, No Pedal Edema, Normal Capillary Refill, Limited Range of Motion Peripheral Pulses: 1+: Dorsalis Pedis (L), Dorsalis Pedis (R), 2+: Radial (L), Radial (R) Skin: Warm, Dry, Intact Neurological: No New Focal Deficit Psy/Mental Status: Alert, Normal Affect, Normal Mood - Problem List & Annotations (1) Contusion of right hip and thigh SNOMED Code(s): 435654677 Code(s): S70.01XA - CONTUSION OF RIGHT HIP, INITIAL ENCOUNTER; S70.11XA - CONTUSION OF RIGHT THIGH, INITIAL ENCOUNTER Status: Acute Current Visit: Yes Qualifiers: Encounter type: initial encounter Qualified Code(s): S70.01XA - Contusion of right hip, initial encounter; S70.11XA - Contusion of right thigh, initial encounter (2) Contusion of right shoulder or upper extremity SNOMED Code(s): 91491754 Code(s): ZKV8421 - Status: Acute Current Visit: Yes (3) Degenerative arthritis of hip SNOMED Code(s): 211636024 Code(s): M16.9 - OSTEOARTHRITIS OF HIP, UNSPECIFIED Status: Acute Current Visit: Yes Qualifiers: Osteoarthritis type: primary Laterality: bilateral Qualified Code(s): M16.0 - Bilateral primary osteoarthritis of hip (4) Degenerative arthritis of knee, bilateral SNOMED Code(s): 955283077 Code(s): M17.0 - BILATERAL PRIMARY OSTEOARTHRITIS OF KNEE Status: Acute Current Visit: Yes Qualifiers: Osteoarthritis type: primary Qualified Code(s): M17.0 - Bilateral primary osteoarthritis of knee (5) Fall as cause of accidental injury at home as place of occurrence SNOMED Code(s): 63417739 Code(s): W19.XXXA - UNSPECIFIED FALL, INITIAL ENCOUNTER; Y92.009 - UNSP PLACE IN UNSP NON-INSTITUT (PRIVATE) RESIDENCE PLACE Status: Acute Current Visit: Yes Qualifiers: Encounter type: initial encounter Qualified Code(s): W19.XXXA - Unspecified fall, initial encounter; Y92.009 - Unspecified place in unspecified non-institutional (private) residence as the place of occurrence of the external cause (6) Schizophrenia in full remission with history of multiple episodes SNOMED Code(s): 9789169, 048849375 Code(s): F20.9 - SCHIZOPHRENIA, UNSPECIFIED Status: Acute Current Visit: Yes (7) Hospital admission due to social situation SNOMED Code(s): 762980335 Code(s): Z60.9 - PROBLEM RELATED TO SOCIAL ENVIRONMENT, UNSPECIFIED Status : Acute Priority: High Current Visit: Yes (8) Pain syndrome, chronic SNOMED Code(s): 253820931 Code(s): G89.4 - CHRONIC PAIN SYNDROME Status: Chronic Priority: High Current Visit: Yes (9) Skin ulcer of abdomen SNOMED Code(s): 402159281, 912022144 Code(s): L98.499 - NON-PRESSURE CHRONIC ULCER OF SKIN OF SITES W UNSP SEVERITY Status: Chronic Priority: High Current Visit: Yes Qualifiers: Non-pressure ulcer stage: limited to breakdown of skin Qualified Code(s): L98.491 - Non-pressure chronic ulcer of skin of other sites limited to breakdown of skin - Problem List Review Problem List Initiated/Reviewed/Updated: Yes - My Orders Last 24 Hours: My Active Orders 08/30/18 07:34 Consult to Executive Office Manager [CONS] Routine - Plan Plan:: Assessment/Plan: Acute: Recurrent Falls - Lives in an assisted living facility - Has had recurrent falls; had fallen several times a few days - Risk factors: Advanced Diffused OA/DJD, Gait Instability, Chronic Pain Syndrome and Impaired Vision - Usually walks with a walker Inability to Care for Self - Has a daughter in town but she is not involve in her care - Plan for temporary placement until her son in [place] is able to take her 6 months from now Pain Syndrome - Acute on Chronic - 2/2 Recent Falls - Pelvis x-ray report reads severe b/l acetabular protrusion with diffuse joint space narrowing. no acute is definitely appreciated - Femur x-ray report read joint space narrowing also noted within the knee. Bony structure are osteopenic. Nothing acute is definitely appreciated. - Humerus x-ray report reads chronic rotator cuff tear nothing acute is appreciated - Resume home pain regimen - Obtain old pain clinic records - PRN meds as needed Abdominal Lesion/Ulcer - Topical Bacitracin BID - PT consult for wound care Chronic: Impaired Vision HTN HLD GISELA Gastritis/Duodenitis Urinary Incontinence Fibromyalgia Advanced OA/DJD Osteoporosis Rotator Cuff Tear Chronic Pain Syndrome Opioid Dependent Panic Attack Psychosis/Schizophrenia Anxiety Depression Hypothyroidism Anemia Obesity Class II Gait Instability Plan: Admit to the floor-Soft Admit Routine AM Labs Resume Home Meds Aspiration and Fall Precaution Obtain Chart from Pain Clinic in [place] PT/OT juan for recommendations DVT PPx: Lovenox SubQ SW/CM for d/c placement Code status: 1 LOS > 96 hrs pending placement
[2018-08-31] MEDS: Benztropine 1 MG Tab PO SCH ×2 (08:13→21:11)
[2018-08-31] MEDS: Folic Acid 1 MG Tab PO SCH (08:13)
[2018-08-31] MEDS: Ascorbic Acid 500 MG Tab PO SCH ×2 (08:13→21:10)
[2018-08-31] MEDS: Docusate Sodium 100 MG Cap PO SCH ×2 (08:13→21:12)
[2018-08-31] MEDS: Cholecalciferol (Vitamin D3) 1,000 Unit Tab PO SCH (08:14)
[2018-08-31] MEDS: Ferrous Sulfate 325 MG Tab PO SCH ×2 (08:14→21:09)
[2018-08-31] MEDS: Nystatin Topical Powder 15 GM Bottle TOP SCH ×4 (08:14→21:14)
[2018-08-31] MEDS: Potassium Chloride 10 MEQ Tab.ER PO SCH (08:14)
[2018-08-31] MEDS: ARIPiprazole 10 MG Tab PO SCH (08:14)
[2018-08-31] MEDS: Gabapentin 600 MG Tab PO SCH ×3 (08:14→21:11)
[2018-08-31] MEDS: Vortioxetine Hydrobromide [Trintellix] 20 MG PO SCH (08:14)
[2018-08-31] MEDS: Enoxaparin 40 MG/0.4 ML Syringe SUBCUT SCH (08:15)
[2018-08-31] MEDS: Bacitracin/Neomycin/Polymyxin B Oint 15 GM Tube TOP SCH ×2 (08:15→21:14)
[2018-08-31] MEDS: ClonazePAM 0.5 MG Tab PO PRN (16:49)
--- NOTE | 2018-08-31 19:27 | CR ---
Chest: Portable view of the chest was obtained. Comparison: Previous chest x-ray of 10/05/15. Heart size and mediastinum are normal. Lungs are clear. Bony structures are grossly intact. Impression: 1. Nothing acute is seen on portable chest x-ray. Diagnostic code #1
[2018-08-31] MEDS: traZODone 50 MG Tab PO SCH (21:13)
[2018-08-31] MEDS: Polyethylene Glycol 3350 Powder 17 GM Packet PO SCH (21:14)
--- NOTE | 2018-09-01 07:42 | PCM.PN ---
- General Info Date of Service: 09/01/18 Subjective Update: In to see Rosalina with Dr. Gomez. She is somewhat upset that we adjusted her diet but she states she understands and is agreeable. We discussed her going home and it was explained to her that she would likely do better if she went somewhere with a rehab plan such as SNF with PT/OT. She is in agreement with this as well. She had an episode of chest pain last night but workup was negative. Likely 2/2 chronic pain and stress as pain resolved with ativan. Otherwise she remains clinically stable. No nursing concerns. She will be discharged after placement is arranged. Functional Status: Reports: Pain Controlled, Tolerating Diet, Urinating. Denies : Ambulating, New Symptoms - Review of Systems General: Reports: Weakness. Denies: Fever, Fatigue, Malaise, Chills HEENT: Reports: No Symptoms. Denies: Post Nasal Drip, Sore Throat Pulmonary: Reports: No Symptoms. Denies: Shortness of Breath, Pleuritic Chest Pain, Cough, Sputum, Wheezing Cardiovascular: Reports: No Symptoms. Denies: Chest Pain, Palpitations, Dyspnea on Exertion, Edema, Lightheadedness Gastrointestinal: Reports: No Symptoms. Denies: Abdominal Pain, Constipation, Diarrhea, Nausea, Vomiting Genitourinary: Reports: No Symptoms. Denies: Pain Musculoskeletal: Reports: Shoulder Pain, Back Pain, Leg Pain, Joint Pain Skin: Reports: No Symptoms. Denies: Cyanosis Neurological: Reports: No Symptoms, Pre-Existing Deficit, Difficulty Walking, Gait Disturbance. Denies: Confusion, Headache, Numbness, Seizure, Syncope, Tremors, Trouble Speaking, Weakness, Change in Speech Psychiatric: Reports: No Symptoms - Patient Data Vitals - Most Recent: Last Vital Signs Temp 97.7 F 09/01/18 03:12 Pulse 84 09/01/18 03:12 Resp 20 09/01/18 03:12 BP 121/69 09/01/18 03:12 Pulse Ox 96 09/01/18 03:12 Weight - Most Recent: 226 lb 11.2 oz I&O - Last 24 Hours: Intake & Output 08/31/18 09/01/18 09/01/18 22:59 06:59 14:59 Intake Total 1265 750 Output Total 1300 1400 Balance -35 -650 Lab Results Last 24 Hours: Laboratory Results - last 24 hr 08/31/18 Range/Units 18:39 Troponin I < 0.017 (0.00-0.056) ng/mL Med Orders - Current: Current Medications Acetaminophen (Tylenol) 650 mg PO Q6H PRN PRN Reason: Pain/Fever Hydrocodone Bitart/Acetaminophen ([place] 325-5 Mg) 1 tab PO Q4H PRN PRN Reason: Pain (moderate 4-6) Last Admin: 08/31/18 16:18 Dose: 1 tab Albuterol/Ipratropium (Duoneb 3.0-0.5 Mg/3 Ml) 3 ml NEB Q4H PRN PRN Reason: Shortness Of Breath/wheezing Aripiprazole (Abilify) 20 mg PO DAILY [facility] Last Admin: 08/31/18 08:14 Dose: 20 mg Artificial Tears (Refresh Liquigel 1%) 0 ml EYEBOTH QID PRN PRN Reason: DRY EYES Ascorbic Acid (Vitamin C) 500 mg PO DAILY [facility] Benztropine Mesylate (Cogentin) 0.5 mg PO BID [facility] Last Admin: 08/31/18 21:11 Dose: 0.5 mg Bisacodyl (Dulcolax) 5 mg PO DAILY PRN PRN Reason: Constipation Cholecalciferol (Vitamin D3) 2,000 units PO DAILY [facility] Last Admin: 08/31/18 08:14 Dose: 2,000 units Clonazepam (Klonopin) 0.5 mg PO TID PRN PRN Reason: Anxiety Last Admin: 08/31/18 16:49 Dose: 0.5 mg Clotrimazole (Lotrimin Af 1% Crm) 0 gm TOP BID PRN PRN Reason: ITCHING Docusate Sodium (Colace) 100 mg PO BID PRN PRN Reason: Constipation Last Admin: 08/30/18 04:58 Dose: 100 mg Docusate Sodium (Colace) 100 mg PO BID [facility] Last Admin: 08/31/18 21:12 Dose: 100 mg Enoxaparin Sodium (Lovenox) 40 mg SUBCUT DAILY [facility] Last Admin: 08/31/18 08:15 Dose: 40 mg Fentanyl (Duragesic) 12 mcg TOP Q72H [facility] Last Admin: 08/29/18 09:36 Dose: 12 mcg Ferrous Sulfate (Ferrous Sulfate) 325 mg PO BID [facility] Last Admin: 08/31/18 21:09 Dose: 325 mg Folic Acid (Folic Acid) 1 mg PO DAILY [facility] Last Admin: 08/31/18 08:13 Dose: 1 mg Gabapentin (Neurontin) 1,200 mg PO BEDTIME [facility] Last Admin: 08/31/18 21:11 Dose: 1,200 mg Gabapentin (Neurontin) 600 mg PO QAM [facility] Last Admin: 08/31/18 08:14 Dose: 600 mg Gabapentin (Neurontin) 600 mg PO ACDINNER [facility] Last Admin: 08/31/18 16:18 Dose: 600 mg Hydralazine HCl (Apresoline) 20 mg IVPUSH Q4H PRN PRN Reason: Hypertension Promethazine HCl 6.25 mg/ (Sodium Chloride) 50.25 mls @ 100 mls/hr IV Q6H PRN PRN Reason: Nausea/Vomiting Levothyroxine Sodium (Levothyroxine) 175 mcg PO ACBREAKFAST [facility] Last Admin: 09/01/18 05:12 Dose: 175 mcg Lorazepam (Ativan) 2 mg IVPUSH Q4H PRN PRN Reason: Seizures Lorazepam (Ativan) 1 mg IV Q6H PRN PRN Reason: Anxiety Last Admin: 08/31/18 18:31 Dose: 1 mg Magnesium Sulfate (Pharmacy To Dose - Magnesium Replacement) 1 dose .XX ASDIRECTED [facility] Metoprolol Tartrate (Lopressor) 5 mg IVPUSH Q4H PRN PRN Reason: Tachycardia Miscellaneous Information (Remove Patch) 1 ea TRDERM Q72H [facility] Last Admin: 08/29/18 11:09 Dose: 1 ea Neomycin/Polymyxin/Bacitracin (Neosporin Oint) 0 gm TOP BID [facility] Last Admin: 08/31/18 21:14 Dose: 1 applic Nitroglycerin (Nitrostat) 0.4 mg SL DAILY PRN PRN Reason: Chest Pain Nystatin (Nystop) 0 gm TOP QID [facility] Last Admin: 08/31/18 21:14 Dose: 1 applic Ondansetron HCl (Zofran) 4 mg IV Q6H PRN PRN Reason: Nausea/Vomiting Menthol/Zinc Oxide [ Remedy Calazime Protect Paste] 113 Gm 0 each TOP ASDIRECTED [facility] Vortioxetine Hydrobromide [ Trintellix] 20 Mg 0 each PO DAILY [facility] Last Admin: 08/31/18 08:14 Dose: 1 each Polyethylene Glycol (Miralax) 17 gm PO BEDTIME [facility] Last Admin: 08/31/18 21:14 Dose: 17 gm Potassium Chloride (Pharmacy To Dose - Potassium Replacement) 1 dose .XX ASDIRECTED [facility] Potassium Chloride (Klor-Con 10) 10 meq PO DAILY [facility] Last Admin: 08/31/18 08:14 Dose: 10 meq Senna/Docusate Sodium (Senna Plus) 1 tab PO BID [facility] Last Admin: 08/31/18 21:08 Dose: 1 tab Sodium Chloride (Saline Flush) 10 ml FLUSH ASDIRECTED PRN PRN Reason: Keep Vein Open Trazodone HCl (Trazodone) 125 mg PO BEDTIME [facility] Last Admin: 08/31/18 21:13 Dose: 125 mg Triamcinolone Acetonide (Triamcinolone Acetonide 0.1% Crm) 0 gm TOP QID PRN PRN Reason: DRYNESS Discontinued Medications Acetaminophen (Tylenol) 650 mg PO TID PRN PRN Reason: Pain Ascorbic Acid (Vitamin C) 250 mg PO BID [facility] Stop: 08/31/18 22:00 Last Admin: 08/31/18 21:10 Dose: 250 mg Clonazepam (Klonopin) 2 mg PO ONETIME ONE Stop: 08/28/18 22:54 Last Admin: 08/30/18 02:19 Dose: Not Given Diclofenac Sodium (Voltaren 1% Gel) 100 gm TOP ASDIRECTED [facility] Enoxaparin Sodium (Lovenox) 30 mg SUBCUT DAILY [facility] Gabapentin (Neurontin) 1,200 mg PO ONETIME ONE Stop: 08/28/18 22:54 Last Admin: 08/28/18 23:44 Dose: 1,200 mg Hydromorphone HCl (Dilaudid) 1 mg IVPUSH ONETIME ONE Stop: 08/28/18 20:15 Last Admin: 08/28/18 20:46 Dose: 1 mg Hydromorphone HCl (Dilaudid) 0.5 mg IVPUSH Q4H PRN PRN Reason: Pain Hydromorphone HCl (Dilaudid) 0.25 mg IVPUSH Q2H PRN PRN Reason: Pain (severe 7-10) Last Admin: 08/29/18 11:03 Dose: 0.25 mg Sodium Chloride (Normal Saline) 1,000 mls @ 150 mls/hr IV ASDIRECTED [facility] Last Admin: 08/28/18 20:44 Dose: 150 mls/hr Influenza Virus Vaccine (Pharmacy To Dose - Influenza Vaccine) 1 each IM ONETIME ONE Stop: 08/28/18 23:13 Influenza Virus Vaccine (Fluzone Quad Syringe) 60 mcg IM .ONCE ONE Stop: 08/29/18 09:01 Influenza Virus Vaccine (Fluzone Quad Syringe) 60 mcg IM .ONCE ONE Stop: 08/31/18 11:46 Last Admin: 08/31/18 16:20 Dose: 60 mcg Non-Formulary Medication (Clotrimazole) 15 gram TOP ASDIRECTED [facility] Ondansetron HCl (Zofran) 4 mg IVPUSH ONETIME ONE Stop: 08/28/18 20:16 Last Admin: 08/28/18 20:44 Dose: 4 mg Polyethylene Glycol (Miralax) 17 gm PO ONETIME ONE Stop: 08/28/18 22:54 Last Admin: 08/28/18 23:44 Dose: 17 gm - Exam Quality Assessment: DVT Prophylaxis General: Alert, Oriented, Cooperative, No Acute Distress HEENT: Pupils Equal, Pupils Reactive, EOMI, Mucous Membr. Moist/[place] Neck: Supple, Trachea Midline, No JVD Lungs: Clear to Auscultation, Normal Respiratory Effort Cardiovascular: Regular Rate, Regular Rhythm GI/Abdominal Exam: Normal Bowel Sounds, Soft, Non-Tender, No Organomegaly, No Distention, No Abnormal Bruit (Female) Exam: Deferred Back Exam: Normal Inspection, Decreased Range of Motion Extremities: Normal Inspection, Non-Tender, No Pedal Edema, Normal Capillary Refill, Limited Range of Motion Peripheral Pulses: 1+: Dorsalis Pedis (L), Dorsalis Pedis (R), 2+: Radial (L), Radial (R) Skin: Warm, Dry, Intact Neurological: No New Focal Deficit Psy/Mental Status: Alert - Problem List & Annotations (1) Contusion of right hip and thigh SNOMED Code(s): 443340077 Code(s): S70.01XA - CONTUSION OF RIGHT HIP, INITIAL ENCOUNTER; S70.11XA - CONTUSION OF RIGHT THIGH, INITIAL ENCOUNTER Status: Acute Current Visit: Yes Qualifiers: Encounter type: initial encounter Qualified Code(s): S70.01XA - Contusion of right hip, initial encounter; S70.11XA - Contusion of right thigh, initial encounter (2) Contusion of right shoulder or upper extremity SNOMED Code(s): 04693590 Code(s): CBN3714 - Status: Acute Current Visit: Yes (3) Degenerative arthritis of hip SNOMED Code(s): 181179571 Code(s): M16.9 - OSTEOARTHRITIS OF HIP, UNSPECIFIED Status: Acute Current Visit: Yes Qualifiers: Osteoarthritis type: primary Laterality: bilateral Qualified Code(s): M16.0 - Bilateral primary osteoarthritis of hip (4) Degenerative arthritis of knee, bilateral SNOMED Code(s): 796239157 Code(s): M17.0 - BILATERAL PRIMARY OSTEOARTHRITIS OF KNEE Status: Acute Current Visit: Yes Qualifiers: Osteoarthritis type: primary Qualified Code(s): M17.0 - Bilateral primary osteoarthritis of knee (5) Fall as cause of accidental injury at home as place of occurrence SNOMED Code(s): 62704557 Code(s): W19.XXXA - UNSPECIFIED FALL, INITIAL ENCOUNTER; Y92.009 - UNSP PLACE IN UNSP NON-INSTITUT (PRIVATE) RESIDENCE PLACE Status: Acute Current Visit: Yes Qualifiers: Encounter type: initial encounter Qualified Code(s): W19.XXXA - Unspecified fall, initial encounter; Y92.009 - Unspecified place in unspecified non-institutional (private) residence as the place of occurrence of the external cause (6) Schizophrenia in full remission with history of multiple episodes SNOMED Code(s): 3864826, 529621039 Code(s): F20.9 - SCHIZOPHRENIA, UNSPECIFIED Status: Acute Current Visit: Yes (7) Hospital admission due to social situation SNOMED Code(s): 479255302 Code(s): Z60.9 - PROBLEM RELATED TO SOCIAL ENVIRONMENT, UNSPECIFIED Status : Acute Priority: High Current Visit: Yes (8) Pain syndrome, chronic SNOMED Code(s): 777844264 Code(s): G89.4 - CHRONIC PAIN SYNDROME Status: Chronic Priority: High Current Visit: Yes (9) Skin ulcer of abdomen SNOMED Code(s): 487841682, 495585719 Code(s): L98.499 - NON-PRESSURE CHRONIC ULCER OF SKIN OF SITES W UNSP SEVERITY Status: Chronic Priority: High Current Visit: Yes Qualifiers: Non-pressure ulcer stage: limited to breakdown of skin Qualified Code(s): L98.491 - Non-pressure chronic ulcer of skin of other sites limited to breakdown of skin - Problem List Review Problem List Initiated/Reviewed/Updated: Yes - My Orders Last 24 Hours: My Active Orders 08/31/18 Dinner Consistent Carbohydrate Diet [DIET] - Plan Plan:: Assessment/Plan: Acute: Recurrent Falls - Lives in an assisted living facility - Has had recurrent falls; had fallen several times a few days - Risk factors: Advanced Diffused OA/DJD, Gait Instability, Chronic Pain Syndrome and Impaired Vision - Usually walks with a walker Inability to Care for Self - Has a daughter in town but she is not involve in her care - Plan for temporary placement until her son in [place] is able to take her 6 months from now Pain Syndrome - Acute on Chronic - 2/2 Recent Falls - Pelvis x-ray report reads severe b/l acetabular protrusion with diffuse joint space narrowing. no acute is definitely appreciated - Femur x-ray report read joint space narrowing also noted within the knee. Bony structure are osteopenic. Nothing acute is definitely appreciated. - Humerus x-ray report reads chronic rotator cuff tear nothing acute is appreciated - Resume home pain regimen - Obtain old pain clinic records - PRN meds as needed Abdominal Lesion/Ulcer - Topical Bacitracin BID - PT consult for wound care Resolved: S/P Chest pain - Reported chest pain on 08/31/18 - Troponin negative - CXR shows nothing acute - 12-lead shows sinus rhythm at [address] segment changes - Symptoms likely anxiety related - resolved with Ativan Chronic: Impaired Vision HTN HLD GISELA Gastritis/Duodenitis Urinary Incontinence Fibromyalgia Advanced OA/DJD Osteoporosis Rotator Cuff Tear Chronic Pain Syndrome Opioid Dependent Panic Attack Psychosis/Schizophrenia Anxiety Depression Hypothyroidism Anemia Obesity Class II Gait Instability Plan: Admit to the floor-Soft Admit Routine AM Labs Resume Home Meds Aspiration and Fall Precaution Obtain Chart from Pain Clinic in [place] PT/OT eval for recommendations DVT PPx: Lovenox SubQ SW/CM for d/c placement Code status: Full code; PCP: Dr. Armstrong LOS > 96 hrs pending placement
[2018-09-01] MEDS: Enoxaparin 40 MG/0.4 ML Syringe SUBCUT SCH (09:04)
[2018-09-01] MEDS: Benztropine 1 MG Tab PO SCH ×2 (09:04→21:35)
[2018-09-01] MEDS: Ascorbic Acid 500 MG Tab PO SCH (09:05)
[2018-09-01] MEDS: Folic Acid 1 MG Tab PO SCH (09:05)
[2018-09-01] MEDS: Docusate Sodium 100 MG Cap PO SCH ×2 (09:05→21:36)
[2018-09-01] MEDS: ARIPiprazole 10 MG Tab PO SCH (09:05)
[2018-09-01] MEDS: Potassium Chloride 10 MEQ Tab.ER PO SCH (09:06)
[2018-09-01] MEDS: Cholecalciferol (Vitamin D3) 1,000 Unit Tab PO SCH (09:06)
[2018-09-01] MEDS: Gabapentin 600 MG Tab PO SCH ×3 (09:07→21:38)
[2018-09-01] MEDS: Ferrous Sulfate 325 MG Tab PO SCH ×2 (09:07→21:37)
[2018-09-01] MEDS: Vortioxetine Hydrobromide [Trintellix] 20 MG PO SCH (09:08)
[2018-09-01] MEDS: Nystatin Topical Powder 15 GM Bottle TOP SCH ×4 (09:10→21:42)
[2018-09-01] MEDS: fentaNYL 12 MCG/HR Transdermal Patch TOP SCH (09:56)
[2018-09-01] MEDS: Bacitracin/Neomycin/Polymyxin B Oint 15 GM Tube TOP SCH ×2 (09:57→21:43)
[2018-09-01] MEDS: Acetaminophen/HYDROcodone 325-5 MG Tab PO PRN ×2 (13:42→18:00)
[2018-09-01] MEDS: traZODone 50 MG Tab PO SCH (21:36)
[2018-09-01] MEDS: Polyethylene Glycol 3350 Powder 17 GM Packet PO SCH (21:38)
[2018-09-01] MEDS: Ondansetron 4 MG/2 ML SDV IV PRN (22:52)
[2018-09-02] MEDS: Acetaminophen/HYDROcodone 325-5 MG Tab PO PRN ×4 (06:46→20:08)
--- NOTE | 2018-09-02 07:47 | PCM.PN ---
- General Info Date of Service: 09/02/18 Subjective Update: In to see Rosalina. She remains stable. No concerns from nursing. She continues to report occasional pain. She has been utilizing her pain medications and a heating pack. Pre Kindergarten Teacher has seen her. She will be cleared for discharge once placement is obtained. Functional Status: Reports: Pain Controlled, Tolerating Diet, Urinating. Denies : Ambulating, New Symptoms - Review of Systems General: Reports: Weakness. Denies: Fever, Fatigue, Malaise, Chills HEENT: Reports: No Symptoms. Denies: Headaches Pulmonary: Reports: No Symptoms. Denies: Shortness of Breath, Pleuritic Chest Pain, Cough, Sputum Cardiovascular: Reports: No Symptoms. Denies: Chest Pain, Palpitations, Dyspnea on Exertion, Edema Gastrointestinal: Reports: No Symptoms. Denies: Abdominal Pain, Constipation, Diarrhea, Nausea, Vomiting Genitourinary: Reports: No Symptoms. Denies: Pain Musculoskeletal: Reports: Neck Pain, Shoulder Pain, Back Pain, Leg Pain, Joint Pain Skin: Reports: No Symptoms. Denies: Cyanosis Neurological: Reports: No Symptoms, Difficulty Walking, Weakness, Gait Disturbance. Denies: Confusion, Dizziness, Headache, Paresthesia, Seizure, Change in Speech Psychiatric: Reports: No Symptoms - Patient Data Vitals - Most Recent: Last Vital Signs Temp 99.0 F 09/02/18 03:03 Pulse 90 09/02/18 03:03 Resp 16 09/02/18 03:03 BP 129/88 09/02/18 03:03 Pulse Ox 96 09/02/18 03:03 Weight - Most Recent: 224 lb 6.4 oz I&O - Last 24 Hours: Intake & Output 09/01/18 09/02/18 09/02/18 22:59 06:59 14:59 Intake Total 810 1200 Output Total 700 1300 Balance 110 -100 Med Orders - Current: Current Medications Acetaminophen (Tylenol) 650 mg PO Q6H PRN PRN Reason: Pain/Fever Hydrocodone Bitart/Acetaminophen (Maynard 325-5 Mg) 1 tab PO Q4H PRN PRN Reason: Pain (moderate 4-6) Last Admin: 09/02/18 06:46 Dose: 1 tab Albuterol/Ipratropium (Duoneb 3.0-0.5 Mg/3 Ml) 3 ml NEB Q4H PRN PRN Reason: Shortness Of Breath/wheezing Aripiprazole (Abilify) 20 mg PO DAILY [facility] Last Admin: 09/01/18 09:05 Dose: 20 mg Artificial Tears (Refresh Liquigel 1%) 0 ml EYEBOTH QID PRN PRN Reason: DRY EYES Ascorbic Acid (Vitamin C) 500 mg PO DAILY [facility] Last Admin: 09/01/18 09:05 Dose: 500 mg Benztropine Mesylate (Cogentin) 0.5 mg PO BID [facility] Last Admin: 09/01/18 21:35 Dose: 0.5 mg Bisacodyl (Dulcolax) 5 mg PO DAILY PRN PRN Reason: Constipation Cholecalciferol (Vitamin D3) 2,000 units PO DAILY [facility] Last Admin: 09/01/18 09:06 Dose: 2,000 units Clonazepam (Klonopin) 0.5 mg PO TID PRN PRN Reason: Anxiety Last Admin: 08/31/18 16:49 Dose: 0.5 mg Clotrimazole (Lotrimin Af 1% Crm) 0 gm TOP BID PRN PRN Reason: ITCHING Docusate Sodium (Colace) 100 mg PO BID PRN PRN Reason: Constipation Last Admin: 08/30/18 04:58 Dose: 100 mg Docusate Sodium (Colace) 100 mg PO BID [facility] Last Admin: 09/01/18 21:36 Dose: 100 mg Enoxaparin Sodium (Lovenox) 40 mg SUBCUT DAILY [facility] Last Admin: 09/01/18 09:04 Dose: 40 mg Fentanyl (Duragesic) 12 mcg TOP Q72H [facility] Last Admin: 09/01/18 09:56 Dose: 12 mcg Ferrous Sulfate (Ferrous Sulfate) 325 mg PO BID [facility] Last Admin: 09/01/18 21:37 Dose: 325 mg Folic Acid (Folic Acid) 1 mg PO DAILY [facility] Last Admin: 09/01/18 09:05 Dose: 1 mg Gabapentin (Neurontin) 1,200 mg PO BEDTIME [facility] Last Admin: 09/01/18 21:38 Dose: 1,200 mg Gabapentin (Neurontin) 600 mg PO QAM [facility] Last Admin: 09/01/18 09:07 Dose: 600 mg Gabapentin (Neurontin) 600 mg PO ACDINNER [facility] Last Admin: 09/01/18 15:28 Dose: 600 mg Hydralazine HCl (Apresoline) 20 mg IVPUSH Q4H PRN PRN Reason: Hypertension Promethazine HCl 6.25 mg/ (Sodium Chloride) 50.25 mls @ 100 mls/hr IV Q6H PRN PRN Reason: Nausea/Vomiting Levothyroxine Sodium (Levothyroxine) 175 mcg PO ACBREAKFAST [facility] Last Admin: 09/02/18 06:47 Dose: 175 mcg Lorazepam (Ativan) 2 mg IVPUSH Q4H PRN PRN Reason: Seizures Lorazepam (Ativan) 1 mg IV Q6H PRN PRN Reason: Anxiety Last Admin: 08/31/18 18:31 Dose: 1 mg Magnesium Sulfate (Pharmacy To Dose - Magnesium Replacement) 1 dose .XX ASDIRECTED [facility] Metoprolol Tartrate (Lopressor) 5 mg IVPUSH Q4H PRN PRN Reason: Tachycardia Miscellaneous Information (Remove Patch) 1 ea TRDERM Q72H [facility] Last Admin: 09/01/18 09:55 Dose: 1 ea Neomycin/Polymyxin/Bacitracin (Neosporin Oint) 0 gm TOP BID [facility] Last Admin: 09/01/18 21:43 Dose: 1 applic Nitroglycerin (Nitrostat) 0.4 mg SL DAILY PRN PRN Reason: Chest Pain Nystatin (Nystop) 0 gm TOP QID [facility] Last Admin: 09/01/18 21:42 Dose: 1 applic Ondansetron HCl (Zofran) 4 mg IV Q6H PRN PRN Reason: Nausea/Vomiting Last Admin: 09/01/18 22:52 Dose: 4 mg Menthol/Zinc Oxide [ Remedy Calazime Protect Paste] 113 Gm 0 each TOP ASDIRECTED [facility] Vortioxetine Hydrobromide [ Trintellix] 20 Mg 0 each PO DAILY [facility] Last Admin: 09/01/18 09:08 Dose: 1 each Polyethylene Glycol (Miralax) 17 gm PO BEDTIME [facility] Last Admin: 09/01/18 21:38 Dose: 17 gm Potassium Chloride (Pharmacy To Dose - Potassium Replacement) 1 dose .XX ASDIRECTED [facility] Potassium Chloride (Klor-Con 10) 10 meq PO DAILY [facility] Last Admin: 09/01/18 09:06 Dose: 10 meq Senna/Docusate Sodium (Senna Plus) 1 tab PO BID [facility] Last Admin: 09/01/18 21:37 Dose: 1 tab Sodium Chloride (Saline Flush) 10 ml FLUSH ASDIRECTED PRN PRN Reason: Keep Vein Open Trazodone HCl (Trazodone) 125 mg PO BEDTIME [facility] Last Admin: 09/01/18 21:36 Dose: 125 mg Triamcinolone Acetonide (Triamcinolone Acetonide 0.1% Crm) 0 gm TOP QID PRN PRN Reason: DRYNESS Discontinued Medications Acetaminophen (Tylenol) 650 mg PO TID PRN PRN Reason: Pain Ascorbic Acid (Vitamin C) 250 mg PO BID [facility] Stop: 08/31/18 22:00 Last Admin: 08/31/18 21:10 Dose: 250 mg Clonazepam (Klonopin) 2 mg PO ONETIME ONE Stop: 08/28/18 22:54 Last Admin: 08/30/18 02:19 Dose: Not Given Diclofenac Sodium (Voltaren 1% Gel) 100 gm TOP ASDIRECTED [facility] Enoxaparin Sodium (Lovenox) 30 mg SUBCUT DAILY [facility] Gabapentin (Neurontin) 1,200 mg PO ONETIME ONE Stop: 08/28/18 22:54 Last Admin: 08/28/18 23:44 Dose: 1,200 mg Hydromorphone HCl (Dilaudid) 1 mg IVPUSH ONETIME ONE Stop: 08/28/18 20:15 Last Admin: 08/28/18 20:46 Dose: 1 mg Hydromorphone HCl (Dilaudid) 0.5 mg IVPUSH Q4H PRN PRN Reason: Pain Hydromorphone HCl (Dilaudid) 0.25 mg IVPUSH Q2H PRN PRN Reason: Pain (severe 7-10) Last Admin: 08/29/18 11:03 Dose: 0.25 mg Sodium Chloride (Normal Saline) 1,000 mls @ 150 mls/hr IV ASDIRECTED [facility] Last Admin: 08/28/18 20:44 Dose: 150 mls/hr Influenza Virus Vaccine (Pharmacy To Dose - Influenza Vaccine) 1 each IM ONETIME ONE Stop: 08/28/18 23:13 Influenza Virus Vaccine (Fluzone Quad Syringe) 60 mcg IM .ONCE ONE Stop: 08/29/18 09:01 Influenza Virus Vaccine (Fluzone Quad Syringe) 60 mcg IM .ONCE ONE Stop: 08/31/18 11:46 Last Admin: 08/31/18 16:20 Dose: 60 mcg Non-Formulary Medication (Clotrimazole) 15 gram TOP ASDIRECTED [facility]ATHERIN Ondansetron HCl (Zofran) 4 mg IVPUSH ONETIME ONE Stop: 08/28/18 20:16 Last Admin: 08/28/18 20:44 Dose: 4 mg Polyethylene Glycol (Miralax) 17 gm PO ONETIME ONE Stop: 08/28/18 22:54 Last Admin: 08/28/18 23:44 Dose: 17 gm - Exam Quality Assessment: DVT Prophylaxis General: Alert, Oriented, Cooperative, No Acute Distress HEENT: Pupils Equal, Pupils Reactive, EOMI, Mucous Membr. Moist/[place] Neck: Supple, Trachea Midline, No JVD Lungs: Clear to Auscultation, Normal Respiratory Effort Cardiovascular: Regular Rate, Regular Rhythm GI/Abdominal Exam: Normal Bowel Sounds, Soft, Non-Tender, No Organomegaly, No Distention, No Abnormal Bruit, No Mass, Pelvis Stable (Female) Exam: Deferred Back Exam: Normal Inspection, Decreased Range of Motion Extremities: Normal Inspection, Non-Tender, No Pedal Edema, Normal Capillary Refill, Limited Range of Motion Peripheral Pulses: 2+: Radial (L), Radial (R), Dorsalis Pedis (L), Dorsalis Pedis (R) Skin: Warm, Dry, Intact Neurological: No New Focal Deficit Psy/Mental Status: Alert, Normal Affect, Normal Mood - Problem List & Annotations (1) Contusion of right hip and thigh SNOMED Code(s): 941807336 Code(s): S70.01XA - CONTUSION OF RIGHT HIP, INITIAL ENCOUNTER; S70.11XA - CONTUSION OF RIGHT THIGH, INITIAL ENCOUNTER Status: Acute Current Visit: Yes Qualifiers: Encounter type: initial encounter Qualified Code(s): S70.01XA - Contusion of right hip, initial encounter; S70.11XA - Contusion of right thigh, initial encounter (2) Contusion of right shoulder or upper extremity SNOMED Code(s): 98781658 Code(s): LSO5957 - Status: Acute Current Visit: Yes (3) Degenerative arthritis of hip SNOMED Code(s): 745917015 Code(s): M16.9 - OSTEOARTHRITIS OF HIP, UNSPECIFIED Status: Acute Current Visit: Yes Qualifiers: Osteoarthritis type: primary Laterality: bilateral Qualified Code(s): M16.0 - Bilateral primary osteoarthritis of hip (4) Degenerative arthritis of knee, bilateral SNOMED Code(s): 525090463 Code(s): M17.0 - BILATERAL PRIMARY OSTEOARTHRITIS OF KNEE Status: Acute Current Visit: Yes Qualifiers: Osteoarthritis type: primary Qualified Code(s): M17.0 - Bilateral primary osteoarthritis of knee (5) Fall as cause of accidental injury at home as place of occurrence SNOMED Code(s): 42449725 Code(s): W19.XXXA - UNSPECIFIED FALL, INITIAL ENCOUNTER; Y92.009 - UNSP PLACE IN UNSP NON-INSTITUT (PRIVATE) RESIDENCE PLACE Status: Acute Current Visit: Yes Qualifiers: Encounter type: initial encounter Qualified Code(s): W19.XXXA - Unspecified fall, initial encounter; Y92.009 - Unspecified place in unspecified non-institutional (private) residence as the place of occurrence of the external cause (6) Schizophrenia in full remission with history of multiple episodes SNOMED Code(s): 7014275, [id number] Code(s): F20.9 - SCHIZOPHRENIA, UNSPECIFIED Status: Acute Current Visit: Yes (7) Hospital admission due to social situation SNOMED Code(s): 815802955 Code(s): Z60.9 - PROBLEM RELATED TO SOCIAL ENVIRONMENT, UNSPECIFIED Status : Acute Priority: High Current Visit: Yes (8) Pain syndrome, chronic SNOMED Code(s): 435480903 Code(s): G89.4 - CHRONIC PAIN SYNDROME Status: Chronic Priority: High Current Visit: Yes (9) Skin ulcer of abdomen SNOMED Code(s): 847548035, 245572336 Code(s): L98.499 - NON-PRESSURE CHRONIC ULCER OF SKIN OF SITES W UNSP SEVERITY Status: Chronic Priority: High Current Visit: Yes Qualifiers: Non-pressure ulcer stage: limited to breakdown of skin Qualified Code(s): L98.491 - Non-pressure chronic ulcer of skin of other sites limited to breakdown of skin - Problem List Review Problem List Initiated/Reviewed/Updated: Yes - Plan Plan:: Assessment/Plan: Acute: Recurrent Falls - Lives in an assisted living facility - Has had recurrent falls; had fallen several times a few days - Risk factors: Advanced Diffused OA/DJD, Gait Instability, Chronic Pain Syndrome and Impaired Vision - Usually walks with a walker Inability to Care for Self - Has a daughter in town but she is not involve in her care - Plan for temporary placement until her son in [place] is able to take her 6 months from now Pain Syndrome - Acute on Chronic - 2/2 Recent Falls - Pelvis x-ray report reads severe b/l acetabular protrusion with diffuse joint space narrowing. no acute is definitely appreciated - Femur x-ray report read joint space narrowing also noted within the knee. Bony structure are osteopenic. Nothing acute is definitely appreciated. - Humerus x-ray report reads chronic rotator cuff tear nothing acute is appreciated - Resume home pain regimen - Obtain old pain clinic records - PRN meds as needed - PRN heat pack as needed Abdominal Lesion/Ulcer - Topical Bacitracin BID - PT consult for wound care Resolved: S/P Chest pain - Reported chest pain on 08/31/18 - Troponin negative - CXR shows nothing acute - 12-lead shows sinus rhythm at [address] segment changes - Symptoms likely anxiety related - resolved with Ativan Chronic: Impaired Vision HTN HLD GISELA Gastritis/Duodenitis Urinary Incontinence Fibromyalgia Advanced OA/DJD Osteoporosis Rotator Cuff Tear Chronic Pain Syndrome Opioid Dependent Panic Attack Psychosis/Schizophrenia Anxiety Depression Hypothyroidism Anemia Obesity Class II Gait Instability Plan: Admit to the floor-Soft Admit She remains clinically stable and awaiting placement Routine AM Labs Resume Home Meds Aspiration and Fall Precaution Obtain Chart from Pain Clinic in [address] PT/OT eval for recommendations DVT PPx: Lovenox SubQ SW/CM for d/c placement Code status: Full code; PCP: Dr. Armstrong LOS > 96 hrs pending placement
[2018-09-02] MEDS: Benztropine 1 MG Tab PO SCH ×2 (08:33→20:10)
[2018-09-02] MEDS: ARIPiprazole 10 MG Tab PO SCH (08:34)
[2018-09-02] MEDS: Ferrous Sulfate 325 MG Tab PO SCH ×2 (08:35→20:08)
[2018-09-02] MEDS: Cholecalciferol (Vitamin D3) 1,000 Unit Tab PO SCH (08:35)
[2018-09-02] MEDS: Potassium Chloride 10 MEQ Tab.ER PO SCH (08:35)
[2018-09-02] MEDS: Folic Acid 1 MG Tab PO SCH (08:35)
[2018-09-02] MEDS: Ascorbic Acid 500 MG Tab PO SCH (08:35)
[2018-09-02] MEDS: Gabapentin 600 MG Tab PO SCH ×3 (08:36→20:09)
[2018-09-02] MEDS: Docusate Sodium 100 MG Cap PO SCH ×2 (08:36→20:08)
[2018-09-02] MEDS: Enoxaparin 40 MG/0.4 ML Syringe SUBCUT SCH (08:36)
[2018-09-02] MEDS: Nystatin Topical Powder 15 GM Bottle TOP SCH ×4 (08:38→20:10)
[2018-09-02] MEDS: Vortioxetine Hydrobromide [Trintellix] 20 MG PO SCH (08:39)
[2018-09-02] MEDS: Bacitracin/Neomycin/Polymyxin B Oint 15 GM Tube TOP SCH ×2 (08:43→20:07)
[2018-09-02] MEDS: Polyethylene Glycol 3350 Powder 17 GM Packet PO SCH (20:09)
[2018-09-02] MEDS: traZODone 50 MG Tab PO SCH (20:09)
[2018-09-03] MEDS: Acetaminophen/HYDROcodone 325-5 MG Tab PO PRN ×2 (05:17→10:03)
--- NOTE | 2018-09-03 07:35 | PCM.PN ---
- General Info Date of Service: 09/03/18 Subjective Update: In to see Rosalina. She remains stable. No concerns from nursing. She continues to report occasional pain but states it is better today with her heating pack. She requests we re-order her voltaren gel and this is certainly reasonable. She will be cleared for discharge once placement is obtained. Functional Status: Reports: Pain Controlled, Tolerating Diet, Urinating. Denies : Ambulating, New Symptoms - Review of Systems General: Reports: Weakness. Denies: Fever, Fatigue, Malaise HEENT: Reports: No Symptoms. Denies: Headaches, Sore Throat Pulmonary: Reports: No Symptoms. Denies: Shortness of Breath, Pleuritic Chest Pain, Cough, Sputum, Wheezing Cardiovascular: Reports: No Symptoms. Denies: Chest Pain, Palpitations, Dyspnea on Exertion, Edema, Lightheadedness Gastrointestinal: Reports: No Symptoms. Denies: Abdominal Pain, Constipation, Decreased Appetite, Diarrhea, Nausea, Vomiting Genitourinary: Reports: No Symptoms. Denies: Pain Musculoskeletal: Reports: Shoulder Pain, Back Pain, Leg Pain, Joint Pain Skin: Reports: No Symptoms. Denies: Cyanosis Neurological: Reports: Difficulty Walking, Gait Disturbance. Denies: Confusion Psychiatric: Reports: No Symptoms - Patient Data Vitals - Most Recent: Last Vital Signs Temp 97.5 F 09/03/18 05:16 Pulse 87 09/03/18 05:16 Resp 16 09/03/18 05:16 BP 133/73 09/03/18 05:16 Pulse Ox 96 09/03/18 05:16 Weight - Most Recent: 226 lb 1.6 oz I&O - Last 24 Hours: Intake & Output 09/02/18 09/03/18 09/03/18 22:59 06:59 14:59 Intake Total 1700 300 Output Total 1650 900 Balance 50 -600 Lab Results Last 24 Hours: Laboratory Results - last 24 hr 09/02/18 09/02/18 09/03/18 Range/Units 07:57 07:57 05:35 WBC 5.66 (3.98-10.04) K/mm3 RBC 4.53 (3.98-5.22) M/mm3 Hgb 12.8 (11.2-15.7) gm/L Hct 41.4 (34.1-44.9) % MCV 91.4 (79.4-94.8) fl MCH 28.3 (25.6-32.2) pg MCHC 30.9 L (32.2-35.5) g/dl RDW Std Deviation 55.3 H (36.4-46.3) fL Plt Count 236 (182-369) K/mm3 MPV 10.4 (9.4-12.3) fl Neut % (Auto) 51.9 (34.0-71.1) % Lymph % (Auto) 34.1 (19.3-51.7) % [place] % (Auto) 10.2 (4.7-12.5) % Eos % (Auto) 3.0 (0.7-5.8) Baso % (Auto) 0.4 (0.1-1.2) % Neut # (Auto) 2.94 (1.56-6.13) K/mm3 Lymph # (Auto) 1.93 (1.18-3.74) K/mm3 [place] # (Auto) 0.58 H (0.24-0.36) K/mm3 Eos # (Auto) 0.17 (0.04-0.36) K/mm3 Baso # (Auto) 0.02 (0.01-0.08) K/mm3 Sodium 139 140 (136-145) mEq/L Potassium 4.1 4.0 (3.5-5.1) mEq/L Chloride 103 103 (98-107) mEq/L Carbon Dioxide 29 27 (21-32) mEq/L Anion Gap 11.1 14.0 (5-15) BUN 18 16 (7-18) mg/dL Creatinine 0.7 0.7 (0.55-1.02) mg/dL Est Cr Clr Drug Dosing 75.82 75.82 mL/min Estimated GFR (MDRD) > 60 > 60 (>60) mL/min BUN/Creatinine Ratio 25.7 H 22.9 H (14-18) Glucose 87 89 (80-115) mg/dL Calcium 9.5 9.8 (8.5-10.1) mg/dL Magnesium 2.0 2.1 (1.8-2.4) mg/dl Med Orders - Current: Current Medications Acetaminophen (Tylenol) 650 mg PO Q6H PRN PRN Reason: Pain/Fever Hydrocodone Bitart/Acetaminophen ([place] 325-5 Mg) 1 tab PO Q4H PRN PRN Reason: Pain (moderate 4-6) Last Admin: 09/03/18 05:17 Dose: 1 tab Albuterol/Ipratropium (Duoneb 3.0-0.5 Mg/3 Ml) 3 ml NEB Q4H PRN PRN Reason: Shortness Of Breath/wheezing Aripiprazole (Abilify) 20 mg PO DAILY [facility] Last Admin: 09/02/18 08:34 Dose: 20 mg Artificial Tears (Refresh Liquigel 1%) 0 ml EYEBOTH QID PRN PRN Reason: DRY EYES Ascorbic Acid (Vitamin C) 500 mg PO DAILY [facility] Last Admin: 09/02/18 08:35 Dose: 500 mg Benztropine Mesylate (Cogentin) 0.5 mg PO BID [facility] Last Admin: 09/02/18 20:10 Dose: 0.5 mg Bisacodyl (Dulcolax) 5 mg PO DAILY PRN PRN Reason: Constipation Cholecalciferol (Vitamin D3) 2,000 units PO DAILY [facility] Last Admin: 09/02/18 08:35 Dose: 2,000 units Clonazepam (Klonopin) 0.5 mg PO TID PRN PRN Reason: Anxiety Last Admin: 08/31/18 16:49 Dose: 0.5 mg Clotrimazole (Lotrimin Af 1% Crm) 0 gm TOP BID PRN PRN Reason: ITCHING Docusate Sodium (Colace) 100 mg PO BID PRN PRN Reason: Constipation Last Admin: 08/30/18 04:58 Dose: 100 mg Docusate Sodium (Colace) 100 mg PO BID [facility] Last Admin: 09/02/18 20:08 Dose: 100 mg Enoxaparin Sodium (Lovenox) 40 mg SUBCUT DAILY [facility] Last Admin: 09/02/18 08:36 Dose: 40 mg Fentanyl (Duragesic) 12 mcg TOP Q72H [facility] Last Admin: 09/01/18 09:56 Dose: 12 mcg Ferrous Sulfate (Ferrous Sulfate) 325 mg PO BID [facility] Last Admin: 09/02/18 20:08 Dose: 325 mg Folic Acid (Folic Acid) 1 mg PO DAILY [facility] Last Admin: 09/02/18 08:35 Dose: 1 mg Gabapentin (Neurontin) 1,200 mg PO BEDTIME [facility] Last Admin: 09/02/18 20:09 Dose: 1,200 mg Gabapentin (Neurontin) 600 mg PO QAM [facility] Last Admin: 09/02/18 08:36 Dose: 600 mg Gabapentin (Neurontin) 600 mg PO ACDINNER [facility] Last Admin: 09/02/18 15:18 Dose: 600 mg Hydralazine HCl (Apresoline) 20 mg IVPUSH Q4H PRN PRN Reason: Hypertension Promethazine HCl 6.25 mg/ (Sodium Chloride) 50.25 mls @ 100 mls/hr IV Q6H PRN PRN Reason: Nausea/Vomiting Levothyroxine Sodium (Levothyroxine) 175 mcg PO ACBREAKFAST [facility] Last Admin: 09/03/18 05:17 Dose: 175 mcg Lorazepam (Ativan) 2 mg IVPUSH Q4H PRN PRN Reason: Seizures Lorazepam (Ativan) 1 mg IV Q6H PRN PRN Reason: Anxiety Last Admin: 08/31/18 18:31 Dose: 1 mg Magnesium Sulfate (Pharmacy To Dose - Magnesium Replacement) 1 dose .XX ASDIRECTED [facility] Metoprolol Tartrate (Lopressor) 5 mg IVPUSH Q4H PRN PRN Reason: Tachycardia Miscellaneous Information (Remove Patch) 1 ea TRDERM Q72H [facility] Last Admin: 09/01/18 09:55 Dose: 1 ea Neomycin/Polymyxin/Bacitracin (Neosporin Oint) 0 gm TOP BID [facility] Last Admin: 09/02/18 20:07 Dose: Not Given Nitroglycerin (Nitrostat) 0.4 mg SL DAILY PRN PRN Reason: Chest Pain Nystatin (Nystop) 0 gm TOP QID [facility] Last Admin: 09/02/18 20:10 Dose: 1 applic Ondansetron HCl (Zofran) 4 mg IV Q6H PRN PRN Reason: Nausea/Vomiting Last Admin: 09/01/18 22:52 Dose: 4 mg Menthol/Zinc Oxide [ Remedy Calazime Protect Paste] 113 Gm 0 each TOP ASDIRECTED [facility] Vortioxetine Hydrobromide [ Trintellix] 20 Mg 0 each PO DAILY [facility] Last Admin: 09/02/18 08:39 Dose: 1 each Polyethylene Glycol (Miralax) 17 gm PO BEDTIME [facility] Last Admin: 09/02/18 20:09 Dose: 17 gm Potassium Chloride (Pharmacy To Dose - Potassium Replacement) 1 dose .XX ASDIRECTED [facility] Potassium Chloride (Klor-Con 10) 10 meq PO DAILY [facility] Last Admin: 09/02/18 08:35 Dose: 10 meq Senna/Docusate Sodium (Senna Plus) 1 tab PO BID [facility] Last Admin: 09/02/18 20:08 Dose: 1 tab Sodium Chloride (Saline Flush) 10 ml FLUSH ASDIRECTED PRN PRN Reason: Keep Vein Open Trazodone HCl (Trazodone) 125 mg PO BEDTIME [facility] Last Admin: 09/02/18 20:09 Dose: 125 mg Triamcinolone Acetonide (Triamcinolone Acetonide 0.1% Crm) 0 gm TOP QID PRN PRN Reason: DRYNESS Discontinued Medications Acetaminophen (Tylenol) 650 mg PO TID PRN PRN Reason: Pain Ascorbic Acid (Vitamin C) 250 mg PO BID [facility] Stop: 08/31/18 22:00 Last Admin: 08/31/18 21:10 Dose: 250 mg Clonazepam (Klonopin) 2 mg PO ONETIME ONE Stop: 08/28/18 22:54 Last Admin: 08/30/18 02:19 Dose: Not Given Diclofenac Sodium (Voltaren 1% Gel) 100 gm TOP ASDIRECTED [facility] Enoxaparin Sodium (Lovenox) 30 mg SUBCUT DAILY [facility] Gabapentin (Neurontin) 1,200 mg PO ONETIME ONE Stop: 08/28/18 22:54 Last Admin: 08/28/18 23:44 Dose: 1,200 mg Hydromorphone HCl (Dilaudid) 1 mg IVPUSH ONETIME ONE Stop: 08/28/18 20:15 Last Admin: 08/28/18 20:46 Dose: 1 mg Hydromorphone HCl (Dilaudid) 0.5 mg IVPUSH Q4H PRN PRN Reason: Pain Hydromorphone HCl (Dilaudid) 0.25 mg IVPUSH Q2H PRN PRN Reason: Pain (severe 7-10) Last Admin: 08/29/18 11:03 Dose: 0.25 mg Sodium Chloride (Normal Saline) 1,000 mls @ 150 mls/hr IV ASDIRECTED [facility] Last Admin: 08/28/18 20:44 Dose: 150 mls/hr Influenza Virus Vaccine (Pharmacy To Dose - Influenza Vaccine) 1 each IM ONETIME ONE Stop: 08/28/18 23:13 Influenza Virus Vaccine (Fluzone Quad Syringe) 60 mcg IM .ONCE ONE Stop: 08/29/18 09:01 Influenza Virus Vaccine (Fluzone Quad Syringe) 60 mcg IM .ONCE ONE Stop: 08/31/18 11:46 Last Admin: 08/31/18 16:20 Dose: 60 mcg Non-Formulary Medication (Clotrimazole) 15 gram TOP ASDIRECTED [facility] Ondansetron HCl (Zofran) 4 mg IVPUSH ONETIME ONE Stop: 08/28/18 20:16 Last Admin: 08/28/18 20:44 Dose: 4 mg Polyethylene Glycol (Miralax) 17 gm PO ONETIME ONE Stop: 08/28/18 22:54 Last Admin: 08/28/18 23:44 Dose: 17 gm - Exam Quality Assessment: DVT Prophylaxis General: Alert, Oriented, Cooperative, No Acute Distress HEENT: Pupils Equal, Pupils Reactive, EOMI, Mucous Membr. Moist/[place] Neck: Supple, Trachea Midline, No JVD Lungs: Clear to Auscultation, Normal Respiratory Effort Cardiovascular: Regular Rate, Regular Rhythm GI/Abdominal Exam: Normal Bowel Sounds, Soft, Non-Tender, No Distention, No Abnormal Bruit (Female) Exam: Deferred Back Exam: Normal Inspection, Full Range of Motion Extremities: Normal Inspection, Normal Range of Motion, Non-Tender, No Pedal Edema, Normal Capillary Refill Peripheral Pulses: 2+: Radial (L), Radial (R), Dorsalis Pedis (L), Dorsalis Pedis (R) Skin: Warm, Dry, Intact Wound/Incisions: Dressing Dry and Intact Neurological: No New Focal Deficit Psy/Mental Status: Alert, Normal Affect, Normal Mood - Problem List & Annotations (1) Contusion of right hip and thigh SNOMED Code(s): 667276441 Code(s): S70.01XA - CONTUSION OF RIGHT HIP, INITIAL ENCOUNTER; S70.11XA - CONTUSION OF RIGHT THIGH, INITIAL ENCOUNTER Status: Acute Current Visit: Yes Qualifiers: Encounter type: initial encounter Qualified Code(s): S70.01XA - Contusion of right hip, initial encounter; S70.11XA - Contusion of right thigh, initial encounter (2) Contusion of right shoulder or upper extremity SNOMED Code(s): 13145071 Code(s): KIO9125 - Status: Acute Current Visit: Yes (3) Degenerative arthritis of hip SNOMED Code(s): 997657346 Code(s): M16.9 - OSTEOARTHRITIS OF HIP, UNSPECIFIED Status: Acute Current Visit: Yes Qualifiers: Osteoarthritis type: primary Laterality: bilateral Qualified Code(s): M16.0 - Bilateral primary osteoarthritis of hip (4) Degenerative arthritis of knee, bilateral SNOMED Code(s): 270128344 Code(s): M17.0 - BILATERAL PRIMARY OSTEOARTHRITIS OF KNEE Status: Acute Current Visit: Yes Qualifiers: Osteoarthritis type: primary Qualified Code(s): M17.0 - Bilateral primary osteoarthritis of knee (5) Fall as cause of accidental injury at home as place of occurrence SNOMED Code(s): 98670360 Code(s): W19.XXXA - UNSPECIFIED FALL, INITIAL ENCOUNTER; Y92.009 - UNSP PLACE IN UNSP NON-INSTITUT (PRIVATE) RESIDENCE PLACE Status: Acute Current Visit: Yes Qualifiers: Encounter type: initial encounter Qualified Code(s): W19.XXXA - Unspecified fall, initial encounter; Y92.009 - Unspecified place in unspecified non-institutional (private) residence as the place of occurrence of the external cause (6) Schizophrenia in full remission with history of multiple episodes SNOMED Code(s): 0625988, 390155845 Code(s): F20.9 - SCHIZOPHRENIA, UNSPECIFIED Status: Acute Current Visit: Yes (7) Hospital admission due to social situation SNOMED Code(s): 489650672 Code(s): Z60.9 - PROBLEM RELATED TO SOCIAL ENVIRONMENT, UNSPECIFIED Status : Acute Priority: High Current Visit: Yes (8) Pain syndrome, chronic SNOMED Code(s): 825218031 Code(s): G89.4 - CHRONIC PAIN SYNDROME Status: Chronic Priority: High Current Visit: Yes (9) Skin ulcer of abdomen SNOMED Code(s): 100840247, 939023230 Code(s): L98.499 - NON-PRESSURE CHRONIC ULCER OF SKIN OF SITES W UNSP SEVERITY Status: Chronic Priority: High Current Visit: Yes Qualifiers: Non-pressure ulcer stage: limited to breakdown of skin Qualified Code(s): L98.491 - Non-pressure chronic ulcer of skin of other sites limited to breakdown of skin - Problem List Review Problem List Initiated/Reviewed/Updated: Yes - My Orders Last 24 Hours: My Active Orders 09/04/18 05:11 BASIC METABOLIC PANEL,BMP [CHEM] AM MAGNESIUM [CHEM] AM 09/05/18 05:11 BASIC METABOLIC PANEL,BMP [CHEM] AM MAGNESIUM [CHEM] AM 09/06/18 05:11 BASIC METABOLIC PANEL,BMP [CHEM] AM MAGNESIUM [CHEM] AM - Plan Plan:: Assessment/Plan: Acute: Recurrent Falls - Lives in an assisted living facility - Has had recurrent falls; had fallen several times a few days - Risk factors: Advanced Diffused OA/DJD, Gait Instability, Chronic Pain Syndrome and Impaired Vision - Usually walks with a walker Inability to Care for Self - Has a daughter in town but she is not involve in her care - Plan for temporary placement until her son in [place] is able to take her 6 months from now Pain Syndrome - Acute on Chronic - 2/2 Recent Falls - Pelvis x-ray report reads severe b/l acetabular protrusion with diffuse joint space narrowing. no acute is definitely appreciated - Femur x-ray report read joint space narrowing also noted within the knee. Bony structure are osteopenic. Nothing acute is definitely appreciated. - Humerus x-ray report reads chronic rotator cuff tear nothing acute is appreciated - Resume home pain regimen - Obtain old pain clinic records - PRN meds as needed - PRN heat pack as needed Abdominal Lesion/Ulcer - Topical Bacitracin BID - PT consult for wound care Resolved: S/P Chest pain - Reported chest pain on 08/31/18 - Troponin negative - CXR shows nothing acute - 12-lead shows sinus rhythm at [address] segment changes - Symptoms likely anxiety related - resolved with Ativan Chronic: Impaired Vision HTN HLD GISELA Gastritis/Duodenitis Urinary Incontinence Fibromyalgia Advanced OA/DJD Osteoporosis Rotator Cuff Tear Chronic Pain Syndrome Opioid Dependent Panic Attack Psychosis/Schizophrenia Anxiety Depression Hypothyroidism Anemia Obesity Class II Gait Instability Plan: Admit to the floor-Soft Admit She remains clinically stable and awaiting placement Routine AM Labs Resume Home Meds Aspiration and Fall Precaution Obtain Chart from Pain Clinic in [place] PT/OT eval for recommendations DVT PPx: Lovenox SubQ SW/CM for d/c placement Code status: Full code; PCP: Dr. Armstrong LOS > 96 hrs pending placement
[2018-09-03] MEDS: Benztropine 1 MG Tab PO SCH ×2 (10:06→21:29)
[2018-09-03] MEDS: Folic Acid 1 MG Tab PO SCH (10:06)
[2018-09-03] MEDS: Cholecalciferol (Vitamin D3) 1,000 Unit Tab PO SCH (10:06)
[2018-09-03] MEDS: Gabapentin 600 MG Tab PO SCH ×3 (10:06→21:30)
[2018-09-03] MEDS: ARIPiprazole 10 MG Tab PO SCH (10:07)
[2018-09-03] MEDS: Ferrous Sulfate 325 MG Tab PO SCH ×2 (10:08→21:29)
[2018-09-03] MEDS: Docusate Sodium 100 MG Cap PO SCH ×2 (10:08→21:32)
[2018-09-03] MEDS: Ascorbic Acid 500 MG Tab PO SCH (10:08)
[2018-09-03] MEDS: Potassium Chloride 10 MEQ Tab.ER PO SCH (10:08)
[2018-09-03] MEDS: Vortioxetine Hydrobromide [Trintellix] 20 MG PO SCH (10:09)
[2018-09-03] MEDS: Nystatin Topical Powder 15 GM Bottle TOP SCH ×2 (10:09→21:31)
[2018-09-03] MEDS: Enoxaparin 40 MG/0.4 ML Syringe SUBCUT SCH (10:09)
[2018-09-03] MEDS: Diclofenac Sodium 1% Gel 100 GM Tube TOP PRN ×2 (12:19→19:02)
[2018-09-03] MEDS: Bacitracin/Neomycin/Polymyxin B Oint 15 GM Tube TOP SCH (12:26)
[2018-09-03] MEDS: Aluminum Hydroxide/Magnesium Hydroxide/Simethicone Susp 30 ML Cup PO PRN ×2 (13:28→19:02)
[2018-09-03] MEDS: traZODone 50 MG Tab PO SCH (21:31)
[2018-09-03] MEDS: Polyethylene Glycol 3350 Powder 17 GM Packet PO SCH (21:32)
[2018-09-04] MEDS: Diclofenac Sodium 1% Gel 100 GM Tube TOP PRN ×2 (04:15→19:09)
[2018-09-04] MEDS: Acetaminophen/HYDROcodone 325-5 MG Tab PO PRN ×2 (06:37→14:11)
--- NOTE | 2018-09-04 07:39 | PCM.PN ---
- General Info Date of Service: 09/04/18 Admission Dx/Problem (Free Text): Recurrent Falls Subjective Update: Follow Up Functional Status: Reports: Pain Controlled, Tolerating Diet, Ambulating, Urinating. Denies: New Symptoms - Review of Systems General: Denies: Fever, Weakness, Fatigue, Malaise, Chills HEENT: Reports: No Symptoms Pulmonary: Denies: Shortness of Breath Cardiovascular: Denies: Chest Pain, Dyspnea on Exertion, Lightheadedness Gastrointestinal: Denies: Abdominal Pain, Nausea, Vomiting Genitourinary: Reports: No Symptoms Musculoskeletal: Reports: Neck Pain, Shoulder Pain, Back Pain, Joint Pain. Denies: Hand Pain Skin: Denies: Cyanosis, Pallor, Diaphoresis, Pruritis, Other Neurological: Reports: Pre-Existing Deficit, Difficulty Walking, Gait Disturbance. Denies: Confusion, Weakness Psychiatric: Denies: Depression, Anxiety, Agitation, Hallucinations Systems Review Comment:: No significant overnight or acute issues. She is doing relatively well. No new complaints. - Patient Data Vitals - Most Recent: Last Vital Signs Temp 36.7 C 09/04/18 04:29 Pulse 99 09/04/18 04:29 Resp 12 09/04/18 04:29 BP 127/98 H 09/04/18 04:29 Pulse Ox 97 09/04/18 04:29 Weight - Most Recent: 99.79 kg I&O - Last 24 Hours: Intake & Output 09/03/18 09/04/18 09/04/18 22:59 06:59 14:59 Intake Total 540 500 Output Total 400 700 Balance 140 -200 Lab Results Last 24 Hours: Laboratory Results - last 24 hr 09/04/18 Range/Units 05:55 Sodium 138 (136-145) mEq/L Potassium 3.8 (3.5-5.1) mEq/L Chloride 104 (98-107) mEq/L Carbon Dioxide 25 (21-32) mEq/L Anion Gap 12.8 (5-15) BUN 21 H (7-18) mg/dL Creatinine 0.7 (0.55-1.02) mg/dL Est Cr Clr Drug Dosing 75.82 mL/min Estimated GFR (MDRD) > 60 (>60) mL/min BUN/Creatinine Ratio 30.0 H (14-18) Glucose 98 (80-115) mg/dL Calcium 9.8 (8.5-10.1) mg/dL Magnesium 2.3 (1.8-2.4) mg/dl Med Orders - Current: Current Medications Acetaminophen (Tylenol) 650 mg PO Q6H PRN PRN Reason: Pain/Fever Hydrocodone Bitart/Acetaminophen ([place] 325-5 Mg) 1 tab PO Q4H PRN PRN Reason: Pain (moderate 4-6) Last Admin: 09/04/18 06:37 Dose: 1 tab Al Hydroxide/Mg Hydroxide (Mag-Al Plus) 30 ml PO QID PRN PRN Reason: heartburn Last Admin: 09/03/18 19:02 Dose: 30 ml Albuterol/Ipratropium (Duoneb 3.0-0.5 Mg/3 Ml) 3 ml NEB Q4H PRN PRN Reason: Shortness Of Breath/wheezing Aripiprazole (Abilify) 20 mg PO DAILY [facility] Last Admin: 09/03/18 10:07 Dose: 20 mg Artificial Tears (Refresh Liquigel 1%) 0 ml EYEBOTH QID PRN PRN Reason: DRY EYES Ascorbic Acid (Vitamin C) 500 mg PO DAILY [facility] Last Admin: 09/03/18 10:08 Dose: 500 mg Benztropine Mesylate (Cogentin) 0.5 mg PO BID [facility] Last Admin: 09/03/18 21:29 Dose: 0.5 mg Bisacodyl (Dulcolax) 5 mg PO DAILY PRN PRN Reason: Constipation Cholecalciferol (Vitamin D3) 2,000 units PO DAILY [facility] Last Admin: 09/03/18 10:06 Dose: 2,000 units Clonazepam (Klonopin) 0.5 mg PO TID PRN PRN Reason: Anxiety Last Admin: 08/31/18 16:49 Dose: 0.5 mg Clotrimazole (Lotrimin Af 1% Crm) 0 gm TOP BID PRN PRN Reason: ITCHING Diclofenac Sodium (Voltaren 1% Gel) 0 gm TOP QID PRN PRN Reason: JOINT PAIN Last Admin: 09/04/18 04:15 Dose: 6 gm Docusate Sodium (Colace) 100 mg PO BID PRN PRN Reason: Constipation Last Admin: 08/30/18 04:58 Dose: 100 mg Docusate Sodium (Colace) 100 mg PO BID [facility] Last Admin: 09/03/18 21:32 Dose: Not Given Enoxaparin Sodium (Lovenox) 40 mg SUBCUT DAILY [facility] Last Admin: 09/03/18 10:09 Dose: 40 mg Fentanyl (Duragesic) 12 mcg TOP Q72H [facility] Last Admin: 09/01/18 09:56 Dose: 12 mcg Ferrous Sulfate (Ferrous Sulfate) 325 mg PO BID [facility] Last Admin: 09/03/18 21:29 Dose: 325 mg Folic Acid (Folic Acid) 1 mg PO DAILY [facility] Last Admin: 09/03/18 10:06 Dose: 1 mg Gabapentin (Neurontin) 1,200 mg PO BEDTIME [facility] Last Admin: 09/03/18 21:30 Dose: 1,200 mg Gabapentin (Neurontin) 600 mg PO QAM [facility] Last Admin: 09/03/18 10:06 Dose: 600 mg Gabapentin (Neurontin) 600 mg PO ACDINNER [facility] Last Admin: 09/03/18 17:11 Dose: 600 mg Hydralazine HCl (Apresoline) 20 mg IVPUSH Q4H PRN PRN Reason: Hypertension Promethazine HCl 6.25 mg/ (Sodium Chloride) 50.25 mls @ 100 mls/hr IV Q6H PRN PRN Reason: Nausea/Vomiting Levothyroxine Sodium (Levothyroxine) 175 mcg PO ACBREAKFAST [facility] Last Admin: 09/04/18 06:37 Dose: 175 mcg Lorazepam (Ativan) 2 mg IVPUSH Q4H PRN PRN Reason: Seizures Lorazepam (Ativan) 1 mg IV Q6H PRN PRN Reason: Anxiety Last Admin: 08/31/18 18:31 Dose: 1 mg Magnesium Sulfate (Pharmacy To Dose - Magnesium Replacement) 1 dose .XX ASDIRECTED [facility] Metoprolol Tartrate (Lopressor) 5 mg IVPUSH Q4H PRN PRN Reason: Tachycardia Miscellaneous Information (Remove Patch) 1 ea TRDERM Q72H [facility] Last Admin: 09/01/18 09:55 Dose: 1 ea Nitroglycerin (Nitrostat) 0.4 mg SL DAILY PRN PRN Reason: Chest Pain Nystatin (Nystop) 0 gm TOP BID [facility] Last Admin: 09/03/18 21:31 Dose: 1 applic Ondansetron HCl (Zofran) 4 mg IV Q6H PRN PRN Reason: Nausea/Vomiting Last Admin: 09/01/18 22:52 Dose: 4 mg Menthol/Zinc Oxide [ Remedy Calazime Protect Paste] 113 Gm 0 each TOP ASDIRECTED [facility] Vortioxetine Hydrobromide [ Trintellix] 20 Mg 0 each PO DAILY [facility] Last Admin: 09/03/18 10:09 Dose: 1 each Polyethylene Glycol (Miralax) 17 gm PO BEDTIME [facility] Last Admin: 09/03/18 21:32 Dose: Not Given Potassium Chloride (Pharmacy To Dose - Potassium Replacement) 1 dose .XX ASDIRECTED [facility] Potassium Chloride (Klor-Con 10) 10 meq PO DAILY [facility] Last Admin: 09/03/18 10:08 Dose: 10 meq Senna/Docusate Sodium (Senna Plus) 1 tab PO BID [facility] Last Admin: 09/03/18 21:32 Dose: Not Given Sodium Chloride (Saline Flush) 10 ml FLUSH ASDIRECTED PRN PRN Reason: Keep Vein Open Trazodone HCl (Trazodone) 125 mg PO BEDTIME [facility] Last Admin: 09/03/18 21:31 Dose: 125 mg Triamcinolone Acetonide (Triamcinolone Acetonide 0.1% Crm) 0 gm TOP QID PRN PRN Reason: DRYNESS Discontinued Medications Acetaminophen (Tylenol) 650 mg PO TID PRN PRN Reason: Pain Ascorbic Acid (Vitamin C) 250 mg PO BID [facility] Stop: 08/31/18 22:00 Last Admin: 08/31/18 21:10 Dose: 250 mg Clonazepam (Klonopin) 2 mg PO ONETIME ONE Stop: 08/28/18 22:54 Last Admin: 08/30/18 02:19 Dose: Not Given Diclofenac Sodium (Voltaren 1% Gel) 100 gm TOP ASDIRECTED [facility] Enoxaparin Sodium (Lovenox) 30 mg SUBCUT DAILY [facility] Gabapentin (Neurontin) 1,200 mg PO ONETIME ONE Stop: 08/28/18 22:54 Last Admin: 08/28/18 23:44 Dose: 1,200 mg Hydromorphone HCl (Dilaudid) 1 mg IVPUSH ONETIME ONE Stop: 08/28/18 20:15 Last Admin: 08/28/18 20:46 Dose: 1 mg Hydromorphone HCl (Dilaudid) 0.5 mg IVPUSH Q4H PRN PRN Reason: Pain Hydromorphone HCl (Dilaudid) 0.25 mg IVPUSH Q2H PRN PRN Reason: Pain (severe 7-10) Last Admin: 08/29/18 11:03 Dose: 0.25 mg Sodium Chloride (Normal Saline) 1,000 mls @ 150 mls/hr IV ASDIRECTED [facility] Last Admin: 08/28/18 20:44 Dose: 150 mls/hr Influenza Virus Vaccine (Pharmacy To Dose - Influenza Vaccine) 1 each IM ONETIME ONE Stop: 08/28/18 23:13 Influenza Virus Vaccine (Fluzone Quad Syringe) 60 mcg IM .ONCE ONE Stop: 08/29/18 09:01 Influenza Virus Vaccine (Fluzone Quad Syringe) 60 mcg IM .ONCE ONE Stop: 08/31/18 11:46 Last Admin: 08/31/18 16:20 Dose: 60 mcg Neomycin/Polymyxin/Bacitracin (Neosporin Oint) 0 gm TOP BID [facility] Last Admin: 09/03/18 12:26 Dose: Not Given Non-Formulary Medication (Clotrimazole) 15 gram TOP ASDIRECTED [facility] Nystatin (Nystop) 0 gm TOP QID [facility] Last Admin: 09/03/18 10:09 Dose: 1 applic Ondansetron HCl (Zofran) 4 mg IVPUSH ONETIME ONE Stop: 08/28/18 20:16 Last Admin: 08/28/18 20:44 Dose: 4 mg Polyethylene Glycol (Miralax) 17 gm PO ONETIME ONE Stop: 08/28/18 22:54 Last Admin: 08/28/18 23:44 Dose: 17 gm - Exam General: Alert, Oriented, Cooperative, No Acute Distress, Other (Obese) HEENT: Pupils Reactive (left eye), Mucous Membr. Moist/[place] Neck: Supple, Trachea Midline, No JVD Lungs: Clear to Auscultation, Normal Respiratory Effort Cardiovascular: Regular Rate, Regular Rhythm GI/Abdominal Exam: Normal Bowel Sounds, Soft, Non-Tender, No Organomegaly, No Distention, No Abnormal Bruit, No Mass, Other (Obese) (Female) Exam: Deferred Back Exam: Normal Inspection, Decreased Range of Motion Extremities: Normal Inspection, Normal Range of Motion, Non-Tender, No Pedal Edema, Normal Capillary Refill Peripheral Pulses: 2+: Dorsalis Pedis (L), Dorsalis Pedis (R) Skin: Warm, Dry, Intact Neurological: No New Focal Deficit (limited due to body habitus and pain with movement). No: Normal Gait Psy/Mental Status: Alert, Normal Affect, Normal Mood. No: Anxious, Agitated, Suicidal Ideation, Hallucinations - Problem List Review Problem List Initiated/Reviewed/Updated: Yes - My Orders Last 24 Hours: My Active Orders 09/03/18 11:58 Diclofenac Sodium [Voltaren 1% Gel] 0 gm TOP QID PRN 09/03/18 13:17 Alum Hydrox/Mag Hydrox/Simeth [Mag-Al Plus] 30 ml PO QID PRN 09/03/18 21:00 Nystatin [Nystop] 0 gm TOP BID - Plan Plan:: Assessment/Plan: Acute: Recurrent Falls - Lives in an assisted living facility - Has had recurrent falls; had fallen several times a few days - Risk factors: Advanced Diffused OA/DJD, Gait Instability, Chronic Pain Syndrome and Impaired Vision - Usually walks with a walker Inability to Care for Self - Has a daughter in [facility] but she is not involve in her care - Plan for temporary placement until her son in [place] is able to take her 6 months from now Pain Syndrome, Improved - Acute on Chronic - 2/2 Recent Falls - Pelvis x-ray report reads severe b/l acetabular protrusion with diffuse joint space narrowing. no acute is definitely appreciated - Femur x-ray report read joint space narrowing also noted within the knee. Bony structure are osteopenic. Nothing acute is definitely appreciated. - Humerus x-ray report reads chronic rotator cuff tear nothing acute is appreciated - Resume home pain regimen - Obtain old pain clinic records - PRN meds as needed - PRN heat pack as needed Abdominal Lesion/Ulcer - Topical Bacitracin BID - PT consult for wound care Resolved: S/P Chest pain - Reported chest pain on 08/31/18 - Troponin negative - CXR shows nothing acute - 12-lead shows sinus rhythm at [address] segment changes - Symptoms likely anxiety related - resolved with Ativan Chronic: Impaired Vision HTN HLD GISELA Gastritis/Duodenitis Urinary Incontinence Fibromyalgia Advanced OA/DJD Osteoporosis Rotator Cuff Tear Chronic Pain Syndrome Opioid Dependent Panic Attack Psychosis/Schizophrenia Anxiety Depression Hypothyroidism Anemia Obesity Class II Gait Instability Plan: She remains clinically stable and awaiting placement Routine AM Labs Fall Precaution PT/OT eval for recommendations DVT PPx: Lovenox SubQ SW/CM for d/c placement Code status: Full code; PCP: Dr. Armstrong LOS > 96 hrs pending placement
[2018-09-04] MEDS: Benztropine 1 MG Tab PO SCH ×2 (08:10→21:23)
[2018-09-04] MEDS: Folic Acid 1 MG Tab PO SCH (08:10)
[2018-09-04] MEDS: Enoxaparin 40 MG/0.4 ML Syringe SUBCUT SCH (08:11)
[2018-09-04] MEDS: Ferrous Sulfate 325 MG Tab PO SCH ×2 (08:11→21:24)
[2018-09-04] MEDS: Ascorbic Acid 500 MG Tab PO SCH (08:11)
[2018-09-04] MEDS: Potassium Chloride 10 MEQ Tab.ER PO SCH (08:11)
[2018-09-04] MEDS: Docusate Sodium 100 MG Cap PO SCH ×2 (08:11→21:24)
[2018-09-04] MEDS: Cholecalciferol (Vitamin D3) 1,000 Unit Tab PO SCH (08:11)
[2018-09-04] MEDS: ARIPiprazole 10 MG Tab PO SCH (08:11)
[2018-09-04] MEDS: Gabapentin 600 MG Tab PO SCH ×3 (08:11→21:22)
[2018-09-04] MEDS: Vortioxetine Hydrobromide [Trintellix] 20 MG PO SCH (08:12)
[2018-09-04] MEDS: Nystatin Topical Powder 15 GM Bottle TOP SCH ×2 (08:12→21:24)
[2018-09-04] MEDS: Aluminum Hydroxide/Magnesium Hydroxide/Simethicone Susp 30 ML Cup PO PRN (09:56)
[2018-09-04] MEDS: fentaNYL 12 MCG/HR Transdermal Patch TOP SCH (10:41)
[2018-09-04] MEDS ORDERED: Calcium Carbonate 500 MG Tab.Chew PO PRN (14:09)
[2018-09-04] MEDS ORDERED: Pantoprazole 40 MG Vial IVPUSH ONE (14:10)
[2018-09-04] MEDS: Ondansetron 4 MG/2 ML SDV IV PRN (19:11)
[2018-09-04] MEDS: Famotidine 20 MG Tab PO SCH (21:23)
[2018-09-04] MEDS: Polyethylene Glycol 3350 Powder 17 GM Packet PO SCH (21:24)
[2018-09-04] MEDS: traZODone 50 MG Tab PO SCH (21:25)
[2018-09-05] MEDS: Diclofenac Sodium 1% Gel 100 GM Tube TOP PRN ×2 (07:05→22:43)
[2018-09-05] MEDS: Cholecalciferol (Vitamin D3) 1,000 Unit Tab PO SCH (08:16)
[2018-09-05] MEDS: Potassium Chloride 10 MEQ Tab.ER PO SCH (08:16)
[2018-09-05] MEDS: Gabapentin 600 MG Tab PO SCH ×3 (08:16→21:13)
[2018-09-05] MEDS: Benztropine 1 MG Tab PO SCH ×2 (08:16→21:12)
[2018-09-05] MEDS: ARIPiprazole 10 MG Tab PO SCH (08:16)
[2018-09-05] MEDS: Enoxaparin 40 MG/0.4 ML Syringe SUBCUT SCH (08:17)
[2018-09-05] MEDS: Ferrous Sulfate 325 MG Tab PO SCH ×2 (08:17→21:12)
[2018-09-05] MEDS: Ascorbic Acid 500 MG Tab PO SCH (08:17)
[2018-09-05] MEDS: Docusate Sodium 100 MG Cap PO SCH ×2 (08:17→21:11)
[2018-09-05] MEDS: Nystatin Topical Powder 15 GM Bottle TOP SCH ×2 (08:17→21:13)
[2018-09-05] MEDS: Famotidine 20 MG Tab PO SCH ×2 (08:17→21:13)
[2018-09-05] MEDS: Folic Acid 1 MG Tab PO SCH (08:17)
[2018-09-05] MEDS: Vortioxetine Hydrobromide [Trintellix] 20 MG PO SCH (08:18)
--- NOTE | 2018-09-05 08:54 | PCM.PN ---
- General Info Date of Service: 09/05/18 Admission Dx/Problem (Free Text): Recurrent Falls Subjective Update: Follow Up Functional Status: Reports: Pain Controlled, Tolerating Diet, Ambulating, Urinating. Denies: New Symptoms - Review of Systems General: Denies: Fever, Weakness, Fatigue, Malaise, Chills HEENT: Reports: No Symptoms Pulmonary: Denies: Shortness of Breath Cardiovascular: Denies: Chest Pain, Dyspnea on Exertion, Lightheadedness Gastrointestinal: Reports: Other (pyrosis). Denies: Abdominal Pain, Nausea, Vomiting Genitourinary: Reports: No Symptoms Musculoskeletal: Reports: Shoulder Pain, Joint Pain Skin: Reports: Bruising. Denies: Cyanosis, Mottled, Pallor, Diaphoresis Neurological: Reports: Difficulty Walking, Gait Disturbance. Denies: Confusion , Weakness Psychiatric: Denies: Depression, Anxiety, Agitation, Hallucinations Systems Review Comment:: No significant overnight or acute issues. She slept well last night. She is currently sitting up in a chair, looking comfortable. Her heart burn has resolved. Her chronic pain for the most part is controlled. - Patient Data Vitals - Most Recent: Last Vital Signs Temp 37.2 C 09/05/18 07:34 Pulse 84 09/05/18 07:34 Resp 14 09/05/18 07:34 BP 137/53 L 09/05/18 07:34 Pulse Ox 96 09/05/18 07:34 Weight - Most Recent: 100.017 kg I&O - Last 24 Hours: Intake & Output 09/04/18 09/05/18 09/05/18 22:59 06:59 14:59 Intake Total 500 400 Output Total 400 1200 Balance 100 -800 Lab Results Last 24 Hours: Laboratory Results - last 24 hr 09/05/18 Range/Units 06:15 Sodium 140 (136-145) mEq/L Potassium 3.7 (3.5-5.1) mEq/L Chloride 104 (98-107) mEq/L Carbon Dioxide 27 (21-32) mEq/L Anion Gap 12.7 (5-15) BUN 18 (7-18) mg/dL Creatinine 0.8 (0.55-1.02) mg/dL Est Cr Clr Drug Dosing 66.34 mL/min Estimated GFR (MDRD) > 60 (>60) mL/min BUN/Creatinine Ratio 22.5 H (14-18) Glucose 102 (80-115) mg/dL Calcium 9.4 (8.5-10.1) mg/dL Magnesium 2.0 (1.8-2.4) mg/dl Med Orders - Current: Current Medications Acetaminophen (Tylenol) 650 mg PO Q6H PRN PRN Reason: Pain/Fever Hydrocodone Bitart/Acetaminophen ([place] 325-5 Mg) 1 tab PO Q4H PRN PRN Reason: Pain (moderate 4-6) Last Admin: 09/04/18 14:11 Dose: 1 tab Al Hydroxide/Mg Hydroxide (Mag-Al Plus) 30 ml PO QID PRN PRN Reason: heartburn Last Admin: 09/04/18 09:56 Dose: 30 ml Albuterol/Ipratropium (Duoneb 3.0-0.5 Mg/3 Ml) 3 ml NEB Q4H PRN PRN Reason: Shortness Of Breath/wheezing Aripiprazole (Abilify) 20 mg PO DAILY [facility] Last Admin: 09/05/18 08:16 Dose: 20 mg Artificial Tears (Refresh Liquigel 1%) 0 ml EYEBOTH QID PRN PRN Reason: DRY EYES Ascorbic Acid (Vitamin C) 500 mg PO DAILY [facility] Last Admin: 09/05/18 08:17 Dose: 500 mg Benztropine Mesylate (Cogentin) 0.5 mg PO BID [facility] Last Admin: 09/05/18 08:16 Dose: 0.5 mg Bisacodyl (Dulcolax) 5 mg PO DAILY PRN PRN Reason: Constipation Calcium Carbonate/Glycine (Tums) 1,000 mg PO Q2HR PRN PRN Reason: Indigestion Last Admin: 09/04/18 14:23 Dose: 1,000 mg Cholecalciferol (Vitamin D3) 2,000 units PO DAILY [facility] Last Admin: 09/05/18 08:16 Dose: 2,000 units Clonazepam (Klonopin) 0.5 mg PO TID PRN PRN Reason: Anxiety Last Admin: 08/31/18 16:49 Dose: 0.5 mg Clotrimazole (Lotrimin Af 1% Crm) 0 gm TOP BID PRN PRN Reason: ITCHING Diclofenac Sodium (Voltaren 1% Gel) 0 gm TOP QID PRN PRN Reason: JOINT PAIN Last Admin: 09/05/18 07:05 Dose: 4 gm Docusate Sodium (Colace) 100 mg PO BID PRN PRN Reason: Constipation Last Admin: 08/30/18 04:58 Dose: 100 mg Docusate Sodium (Colace) 100 mg PO BID [facility] Last Admin: 09/05/18 08:17 Dose: 100 mg Enoxaparin Sodium (Lovenox) 40 mg SUBCUT DAILY [facility] Last Admin: 09/05/18 08:17 Dose: 40 mg Famotidine (Pepcid) 20 mg PO BID [facility] Last Admin: 09/05/18 08:17 Dose: 20 mg Fentanyl (Duragesic) 12 mcg TOP Q72H [facility] Last Admin: 09/04/18 10:41 Dose: 12 mcg Ferrous Sulfate (Ferrous Sulfate) 325 mg PO BID [facility] Last Admin: 09/05/18 08:17 Dose: 325 mg Folic Acid (Folic Acid) 1 mg PO DAILY [facility] Last Admin: 09/05/18 08:17 Dose: 1 mg Gabapentin (Neurontin) 1,200 mg PO BEDTIME [facility] Last Admin: 09/04/18 21:22 Dose: 1,200 mg Gabapentin (Neurontin) 600 mg PO QAM [facility] Last Admin: 09/05/18 08:16 Dose: 600 mg Gabapentin (Neurontin) 600 mg PO ACDINNER [facility] Last Admin: 09/04/18 17:30 Dose: 600 mg Hydralazine HCl (Apresoline) 20 mg IVPUSH Q4H PRN PRN Reason: Hypertension Promethazine HCl 6.25 mg/ (Sodium Chloride) 50.25 mls @ 100 mls/hr IV Q6H PRN PRN Reason: Nausea/Vomiting Levothyroxine Sodium (Levothyroxine) 175 mcg PO ACBREAKFAST [facility] Last Admin: 09/05/18 07:04 Dose: 175 mcg Lorazepam (Ativan) 2 mg IVPUSH Q4H PRN PRN Reason: Seizures Lorazepam (Ativan) 1 mg IV Q6H PRN PRN Reason: Anxiety Last Admin: 08/31/18 18:31 Dose: 1 mg Magnesium Sulfate (Pharmacy To Dose - Magnesium Replacement) 1 dose .XX ASDIRECTED [facility] Metoprolol Tartrate (Lopressor) 5 mg IVPUSH Q4H PRN PRN Reason: Tachycardia Miscellaneous Information (Remove Patch) 1 ea TRDERM Q72H [facility] Last Admin: 09/04/18 10:41 Dose: 1 ea Nitroglycerin (Nitrostat) 0.4 mg SL DAILY PRN PRN Reason: Chest Pain Nystatin (Nystop) 0 gm TOP BID [facility] Last Admin: 09/05/18 08:17 Dose: 1 applic Ondansetron HCl (Zofran) 4 mg IV Q6H PRN PRN Reason: Nausea/Vomiting Last Admin: 09/04/18 19:11 Dose: 4 mg Menthol/Zinc Oxide [ Remedy Calazime Protect Paste] 113 Gm 0 each TOP ASDIRECTED [facility] Vortioxetine Hydrobromide [ Trintellix] 20 Mg 0 each PO DAILY [facility] Last Admin: 09/05/18 08:18 Dose: Not Given Polyethylene Glycol (Miralax) 17 gm PO BEDTIME [facility] Last Admin: 09/04/18 21:24 Dose: Not Given Potassium Chloride (Pharmacy To Dose - Potassium Replacement) 1 dose .XX ASDIRECTED [facility] Potassium Chloride (Klor-Con 10) 10 meq PO DAILY [facility] Last Admin: 09/05/18 08:16 Dose: 10 meq Senna/Docusate Sodium (Senna Plus) 1 tab PO BID [facility] Last Admin: 09/05/18 08:17 Dose: 1 tab Sodium Chloride (Saline Flush) 10 ml FLUSH ASDIRECTED PRN PRN Reason: Keep Vein Open Trazodone HCl (Trazodone) 125 mg PO BEDTIME [facility] Last Admin: 09/04/18 21:25 Dose: 125 mg Triamcinolone Acetonide (Triamcinolone Acetonide 0.1% Crm) 0 gm TOP QID PRN PRN Reason: DRYNESS Discontinued Medications Acetaminophen (Tylenol) 650 mg PO TID PRN PRN Reason: Pain Ascorbic Acid (Vitamin C) 250 mg PO BID [facility] Stop: 08/31/18 22:00 Last Admin: 08/31/18 21:10 Dose: 250 mg Clonazepam (Klonopin) 2 mg PO ONETIME ONE Stop: 08/28/18 22:54 Last Admin: 08/30/18 02:19 Dose: Not Given Diclofenac Sodium (Voltaren 1% Gel) 100 gm TOP ASDIRECTED [facility] Enoxaparin Sodium (Lovenox) 30 mg SUBCUT DAILY [facility] Gabapentin (Neurontin) 1,200 mg PO ONETIME ONE Stop: 08/28/18 22:54 Last Admin: 08/28/18 23:44 Dose: 1,200 mg Hydromorphone HCl (Dilaudid) 1 mg IVPUSH ONETIME ONE Stop: 08/28/18 20:15 Last Admin: 08/28/18 20:46 Dose: 1 mg Hydromorphone HCl (Dilaudid) 0.5 mg IVPUSH Q4H PRN PRN Reason: Pain Hydromorphone HCl (Dilaudid) 0.25 mg IVPUSH Q2H PRN PRN Reason: Pain (severe 7-10) Last Admin: 08/29/18 11:03 Dose: 0.25 mg Sodium Chloride (Normal Saline) 1,000 mls @ 150 mls/hr IV ASDIRECTED [facility] Last Admin: 08/28/18 20:44 Dose: 150 mls/hr Influenza Virus Vaccine (Pharmacy To Dose - Influenza Vaccine) 1 each IM ONETIME ONE Stop: 08/28/18 23:13 Influenza Virus Vaccine (Fluzone Quad Syringe) 60 mcg IM .ONCE ONE Stop: 08/29/18 09:01 Influenza Virus Vaccine (Fluzone Quad [id number] Syringe) 60 mcg IM .ONCE ONE Stop: 08/31/18 11:46 Last Admin: 08/31/18 16:20 Dose: 60 mcg Neomycin/Polymyxin/Bacitracin (Neosporin Oint) 0 gm TOP BID [facility] Last Admin: 09/03/18 12:26 Dose: Not Given Non-Formulary Medication (Clotrimazole) 15 gram TOP ASDIRECTED [facility] Nystatin (Nystop) 0 gm TOP QID [facility] Last Admin: 09/03/18 10:09 Dose: 1 applic Ondansetron HCl (Zofran) 4 mg IVPUSH ONETIME ONE Stop: 08/28/18 20:16 Last Admin: 08/28/18 20:44 Dose: 4 mg Pantoprazole Sodium (Protonix Iv) 40 mg IVPUSH ONETIME ONE Stop: 09/04/18 14:11 Last Admin: 09/04/18 14:23 Dose: 40 mg Polyethylene Glycol (Miralax) 17 gm PO ONETIME ONE Stop: 08/28/18 22:54 Last Admin: 08/28/18 23:44 Dose: 17 gm - Exam General: Alert, Oriented, Cooperative, No Acute Distress, Other (Obese) HEENT: EOMI, Mucous Membr. Moist/[place], Other (left pupil reactive; right eye blindness) Neck: Supple, Trachea Midline, No JVD, No Thyromegaly Lungs: Clear to Auscultation, Normal Respiratory Effort Cardiovascular: Regular Rate, Regular Rhythm GI/Abdominal Exam: Normal Bowel Sounds, Soft, Non-Tender, No Organomegaly, No Distention, No Abnormal Bruit, Other (Obese; noted small abdominal lesion resolving) (Female) Exam: Deferred Back Exam: Normal Inspection, Decreased Range of Motion Extremities: Normal Inspection, Non-Tender, No Pedal Edema, Normal Capillary Refill, Limited Range of Motion Peripheral Pulses: 2+: Dorsalis Pedis (L), Dorsalis Pedis (R) Skin: Warm, Dry, Intact, Other (bruises on b/l upper extremity) Neurological: No New Focal Deficit (limited due to body habitus and espinoza with movement). No: Normal Gait Psy/Mental Status: Alert, Normal Affect, Normal Mood. No: Anxious, Agitated, Hallucinations - Problem List Review Problem List Initiated/Reviewed/Updated: Yes - My Orders Last 24 Hours: My Active Orders 09/04/18 14:09 Calcium Carbonate [Tums] 1,000 mg PO Q2HR PRN 09/04/18 21:00 Famotidine [Pepcid] 20 mg PO BID - Plan Plan:: Assessment/Plan: Acute: Recurrent Falls - Lives in an assisted living facility - Has had recurrent falls; had fallen several times a few days - Risk factors: Advanced Diffused OA/DJD, Gait Instability, Chronic Pain Syndrome and Impaired Vision - Usually walks with a walker Inability to Care for Self - Has a daughter in town but she is not involve in her care - Plan for temporary placement until her son in [place] is able to take her 6 months from now Pain Syndrome, Stable - Acute on Chronic - 2/2 Recent Falls - Pelvis x-ray report reads severe b/l acetabular protrusion with diffuse joint space narrowing. no acute is definitely appreciated - Femur x-ray report read joint space narrowing also noted within the knee. Bony structure are osteopenic. Nothing acute is definitely appreciated. - Humerus x-ray report reads chronic rotator cuff tear nothing acute is appreciated - Resume home pain regimen - Obtain old pain clinic records - PRN meds as needed - PRN heat pack as needed Abdominal Lesion/Ulcer, Continues to Improve - Topical Bacitracin BID - PT consult for wound care Resolved: S/P Chest pain - Reported chest pain on 08/31/18 - Troponin negative - CXR shows nothing acute - 12-lead shows sinus rhythm at [address] segment changes - Symptoms likely anxiety related - resolved with Ativan Chronic: Impaired Vision HTN HLD GISELA Gastritis/Duodenitis Urinary Incontinence Fibromyalgia Advanced OA/DJD Osteoporosis Rotator Cuff Tear Chronic Pain Syndrome Opioid Dependent Panic Attack Psychosis/Schizophrenia Anxiety Depression Hypothyroidism Anemia Obesity Class II Gait Instability Plan: She remains clinically stable and awaiting placement Routine AM Labs Fall Precaution PT/OT eval for recommendations DVT PPx: Lovenox SubQ SW/CM for d/c placement Code status: Full code; PCP: Dr. Armstrong Possible discharge in AM
[2018-09-05] MEDS: Acetaminophen/HYDROcodone 325-5 MG Tab PO PRN ×2 (10:49→21:14)
[2018-09-05] MEDS: Polyethylene Glycol 3350 Powder 17 GM Packet PO SCH (21:11)
[2018-09-05] MEDS: traZODone 50 MG Tab PO SCH (21:13)
[2018-09-06] MEDS: Acetaminophen/HYDROcodone 325-5 MG Tab PO PRN ×2 (06:32→11:16)
--- NOTE | 2018-09-06 07:10 | PCM.DCSUM1 ---
Discharge Summary - Hospital Course HPI Initial Comments: This is a 63 yo white female with past medical hx/o Impaired Vision, HTN, HLD, GISELA, Gastritis/Duodenitis, Urinary Incontinence, Fibromyalgia, Advanced OA/DJD, Osteoporosis, Rotator Cuff Tear, Chronic Pain Syndrome, Opioid Dependent, Panic Attack, Psychosis/Schizophrenia, Anxiety, Depression, Hypothyroidism, Anemia, Obesity Class II, and Gait Instability who comes in from an assisted living facility for evaluation after recurrent falls. She carries a hx/o Advanced DJD/ OA, Osteoporosis, and Gait Instability. She uses a walker when she ambulates. She has fallen several times over the past few days and had to call the medics for help to get her up, off the floor. Her initial work up in ED shows a CBC remarkable for MCHC of 30.5, RDW of 54.5, and Neutrophils of 62%. Her chemistry is significant for BUN of 20, BS of 131, AST of 14, CRP of 1.4, and Albumin fo 1.4. Her UA is negative for UTI. All her imaging studies (humerus, femur and pelvis x-ray) per report reveals no acute abnormal findings. Patient is being admitted for recurrent falls and for SNF vs NH placement. She is full code. Diagnosis: Stroke: No - Discharge Data Discharge Date: 09/06/18 (Admit date: 08/28/18) Discharge Disposition: DC/Tfer to SNF 03 Condition: Good - Discharge Diagnosis/Problem(s) (1) Contusion of right hip and thigh SNOMED Code(s): 496287445 ICD Code: S70.01XA - CONTUSION OF RIGHT HIP, INITIAL ENCOUNTER; S70.11XA - CONTUSION OF RIGHT THIGH, INITIAL ENCOUNTER Status: Acute Current Visit: Yes Qualifiers: Encounter type: initial encounter Qualified Code(s): S70.01XA - Contusion of right hip, initial encounter; S70.11XA - Contusion of right thigh, initial encounter (2) Contusion of right shoulder or upper extremity SNOMED Code(s): 12965871 ICD Code: [id number] - Status: Acute Current Visit: Yes (3) Degenerative arthritis of hip SNOMED Code(s): 795611266 ICD Code: M16.9 - OSTEOARTHRITIS OF HIP, UNSPECIFIED Status: Acute Current Visit: Yes Qualifiers: Osteoarthritis type: primary Laterality: bilateral Qualified Code(s): M16.0 - Bilateral primary osteoarthritis of hip (4) Degenerative arthritis of knee, bilateral SNOMED Code(s): 061624484 ICD Code: M17.0 - BILATERAL PRIMARY OSTEOARTHRITIS OF KNEE Status: Acute Current Visit: Yes Qualifiers: Osteoarthritis type: primary Qualified Code(s): M17.0 - Bilateral primary osteoarthritis of knee (5) Fall as cause of accidental injury at home as place of occurrence SNOMED Code(s): 51816683 ICD Code: W19.XXXA - UNSPECIFIED FALL, INITIAL ENCOUNTER; Y92.009 - UNSP PLACE IN UNSP NON-INSTITUT (PRIVATE) RESIDENCE PLACE Status: Acute Current Visit: Yes Qualifiers: Encounter type: initial encounter Qualified Code(s): W19.XXXA - Unspecified fall, initial encounter; Y92.009 - Unspecified place in unspecified non-institutional (private) residence as the place of occurrence of the external cause (6) Schizophrenia in full remission with history of multiple episodes SNOMED Code(s): 0372532, 807935277 ICD Code: F20.9 - SCHIZOPHRENIA, UNSPECIFIED Status: Acute Current Visit : Yes (7) Hospital admission due to social situation SNOMED Code(s): 954084812 ICD Code: Z60.9 - PROBLEM RELATED TO SOCIAL ENVIRONMENT, UNSPECIFIED Status : Acute Priority: High Current Visit: Yes (8) Pain syndrome, chronic SNOMED Code(s): 536492961 ICD Code: G89.4 - CHRONIC PAIN SYNDROME Status: Chronic Priority: High Current Visit: Yes (9) Skin ulcer of abdomen SNOMED Code(s): 953708441, 281790923 ICD Code: L98.499 - NON-PRESSURE CHRONIC ULCER OF SKIN OF SITES W UNSP SEVERITY Status: Chronic Priority: High Current Visit: Yes Qualifiers: Non-pressure ulcer stage: limited to breakdown of skin Qualified Code(s): L98.491 - Non-pressure chronic ulcer of skin of other sites limited to breakdown of skin - Patient Summary/Data Consults: Consultations 08/28/18 23:24 Consult to Case Management/Chip Bin Conveyor Tender [CONS] Routine Consult to Spiritual Care [CONS] Routine OT Evaluation and Treatment [CONS] Routine PT Evaluation and Treatment [CONS] Routine 08/29/18 16:22 Consult to Physical Therapy [PT Evaluation and Treatment] [CONS] Routine 08/30/18 07:34 Consult to Grinding Room Supervisor [CONS] Routine Labs Pending at D/C: None Recommended Follow-up Testing/Procedures: Follow-up with PCP within 7-10 days of discharge, sooner if needed. Hospital Course: Assessment/Plan: Acute: Recurrent Falls - Lives in an assisted living facility - Has had recurrent falls; had fallen several times a few days - Risk factors: Advanced Diffused OA/DJD, Gait Instability, Chronic Pain Syndrome and Impaired Vision - Usually walks with a walker Inability to Care for Self - Has a daughter in town but she is not involve in her care - Plan for temporary placement until her son in [place] is able to take her 6 months from now Pain Syndrome, Stable - Acute on Chronic - 2/2 Recent Falls - Pelvis x-ray report reads severe b/l acetabular protrusion with diffuse joint space narrowing. no acute is definitely appreciated - Femur x-ray report read joint space narrowing also noted within the knee. Bony structure are osteopenic. Nothing acute is definitely appreciated. - Humerus x-ray report reads chronic rotator cuff tear nothing acute is appreciated - Resume home pain regimen - Obtain old pain clinic records - PRN meds as needed - PRN heat pack as needed Abdominal Lesion/Ulcer, Continues to Improve - Topical Bacitracin BID - PT consult for wound care Resolved: S/P Chest pain - Reported chest pain on 08/31/18 - Troponin negative - CXR shows nothing acute - 12-lead shows sinus rhythm at [address] segment changes - Symptoms likely anxiety related - resolved with Ativan Chronic: Impaired Vision HTN HLD GISELA Gastritis/Duodenitis Urinary Incontinence Fibromyalgia Advanced OA/DJD Osteoporosis Rotator Cuff Tear Chronic Pain Syndrome Opioid Dependent Panic Attack Psychosis/Schizophrenia Anxiety Depression Hypothyroidism Anemia Obesity Class II Gait Instability Plan: She remains clinically stable and awaiting placement Routine AM Labs Fall Precaution PT/OT eval for recommendations DVT PPx: Lovenox SubQ SW/CM for d/c placement Code status: Full code; PCP: Dr. Armstrong Possible discharge in AM Rosalina was admitted to the floor after having recurrent falls at home. Workup in the ED was essentially negative however she was noted to have rather severe arthritis. She did report chest pain and cardiac workup for this was negative while on the floor. He was found to be more likely a combination of anxiety and GERD. She was started on Pepcid and this will be continued on discharge. She also was noted to have some redness in the folds of her groin and nystatin powder was initiated with good results. This was improving but still not completely gone on discharge. She also was noted to have a small lesion on her abdomen which PT was providing wound care. They recommended to continue covering wound with Aquacel and a silicone dressing such as Mepilex. Per PT no debridement is required at this time. Home medications have been continued with the exception of Pepcid as above. Pain has been controlled although when asked she'll will always say she is having pain. This is despite the fact that she looks very comfortable. She is aware that she will likely always have pain. She has been using a heating pack with good results. She will be discharged to [facility] today. Home medications have been continued. She should continue with PT/OT. She has been a chris lift with us. She has also been prescribed nystatin powder for her groin folds as noted prior. - Patient Instructions Diet, Other: Consistent carbohydrate Activity: As Tolerated Activity, Other: She has been a chris lift for Driving: Do Not Drive Showering/Bathing: May Shower Wound/Incision Care: Keep Operative Site/Wound Site Clean and Dry Wound/Incision, Other: Aquacel and cover with silicone foam such as mepalex per PT Notify Provider of: Fever, Increased Pain, Nausea and/or Vomiting Other/Special Instructions: -Follow-up with PCP within 7-10 days of discharge. -Resume home medications as directed. -Take all medications as prescribed. - Continue woundcare to small wound on abdomen as directed. -Continue PT/OT at as directed. -Should symptoms return or worsen contact PCP, a walk-in clinic, or return to the ED. - Discharge Plan *PRESCRIPTION DRUG MONITORING PROGRAM REVIEWED*: Not Applicable *COPY OF PRESCRIPTION DRUG MONITORING REPORT IN PATIENT ARACELY: Not Applicable Prescriptions/Med Rec: Famotidine [Pepcid] 20 mg PO BID #24 tablet Nystatin [Nystop] 0 gm TOP BID #1 bottle Home Medications: Home Meds Potassium Chloride 10 meq PO DAILY 10/17/13 [History] traZODone 125 mg PO BEDTIME 10/17/13 [History] ARIPiprazole [Abilify] 20 mg PO DAILY 08/08/15 [History] Benztropine [Cogentin] 0.5 mg PO BID 08/08/15 [History] Gabapentin [Neurontin] 1,200 mg PO BEDTIME 08/08/15 [History] ClonazePAM [KlonoPIN] 0.5 mg PO TID PRN 10/05/15 [History] Levothyroxine Sodium [Levoxyl] 175 mcg PO DAILY 10/05/15 [History] Nitroglycerin [Nitrostat] 0.4 mg SL DAILY PRN 10/05/15 [History] Alendronate Sodium [Alendronate] 70 mg PO WEEKLY 08/05/17 [History] Ferrous Sulfate 325 mg PO BID 08/05/17 [History] Folic Acid 1 mg PO DAILY 08/05/17 [History] Vortioxetine Hydrobromide [Trintellix] 20 mg PO DAILY 08/05/17 [History] fentaNYL [Duragesic] 12 mcg TOP Q72H 08/05/17 [History] Acetaminophen [Tylenol] 650 mg PO TID PRN 02/25/18 [History] Ascorbic Acid [Vitamin C] 250 mg PO BID 02/25/18 [History] Cholecalciferol (Vitamin D3) [D3-2000] 2,000 unit PO DAILY 02/25/18 [History] Clotrimazole [Clotrimazole 1%] 15 gram TOP BID PRN 02/25/18 [History] Clotrimazole [Lotrimin AF 1% Crm] 1 percent TOP BID 02/25/18 [History] Dextran 70/Hypromellose [Artificial Tears] 15 ml OP QID PRN 02/25/18 [History] Diclofenac Sodium [Voltaren] 1 applic TP TID PRN 02/25/18 [History] Menthol/Zinc Oxide [Remedy Calazime Protect Paste] 1 applic TP QID PRN 02/25/18 [History] Polyethylene Glycol 3350 [MiraLAX] 17 gm PO BEDTIME 02/25/18 [History] Triamcinolone Acetonide [Kenalog 0.1% Crm] 15 gm TOP QID PRN 02/25/18 [History] Gabapentin [Neurontin] 600 mg PO QAM 03/25/18 [History] Gabapentin [Neurontin] 600 mg PO ACDINNER 08/28/18 [History] Docusate Sodium [DOK] 100 mg PO BID 08/29/18 [History] Famotidine [Pepcid] 20 mg PO BID #24 tablet 09/06/18 [Rx] Nystatin [Nystop] 0 gm TOP BID #1 bottle 09/06/18 [Rx] Oxygen Therapy Mode: Room Air Referrals: Jalen Armstrong MD [Primary Care Provider] - 09/13/18 2:00 pm - Discharge Summary/Plan Comment DC Time >30 min.: Yes (45 minutes ) - General Info Date of Service: 09/06/18 Admission Dx/Problem (Free Text: Recurrent Falls Subjective Update: In to see Rosalina. She reports she still has pain but the most part it is controlled. She has no other concerns. No nursing concerns. She will be discharged today. Functional Status: Reports: Pain Controlled, Tolerating Diet, Urinating. Denies : Ambulating, New Symptoms - Review of Systems General: Reports: Weakness. Denies: Fever, Fatigue, Malaise, Chills, Night Sweats HEENT: Reports: No Symptoms. Denies: Headaches, Sore Throat Pulmonary: Reports: No Symptoms. Denies: Shortness of Breath, Pleuritic Chest Pain, Cough, Sputum, Wheezing Cardiovascular: Reports: No Symptoms. Denies: Chest Pain, Palpitations, Dyspnea on Exertion, Edema Gastrointestinal: Reports: No Symptoms. Denies: Abdominal Pain, Constipation, Diarrhea, Nausea, Vomiting Genitourinary: Reports: No Symptoms. Denies: Pain Musculoskeletal: Reports: Neck Pain, Shoulder Pain, Leg Pain, Joint Pain Skin: Reports: Other (Small abdominal wound which is healing ) Neurological: Reports: Difficulty Walking, Gait Disturbance. Denies: Confusion Psychiatric: Reports: No Symptoms - Patient Data Vitals - Most Recent: Last Vital Signs Temp 98.0 F 09/06/18 03:00 Pulse 68 09/06/18 03:00 Resp 18 09/06/18 03:00 BP 105/68 09/06/18 03:00 Pulse Ox 94 L 09/06/18 03:00 Weight - Most Recent: 220 lb 4 oz I&O - Last 24 hours: Intake & Output 09/05/18 09/06/18 09/06/18 22:59 06:59 14:59 Intake Total 1010 800 Output Total 550 1600 Balance 460 -800 Lab Results - Last 24 hrs: Laboratory Results - last 24 hr 03/24/19 Range/Units 06:15 Sodium 140 (136-145) mEq/L Potassium 3.7 (3.5-5.1) mEq/L Chloride 104 (98-107) mEq/L Carbon Dioxide 27 (21-32) mEq/L Anion Gap 12.7 (5-15) BUN 18 (7-18) mg/dL Creatinine 0.8 (0.55-1.02) mg/dL Est Cr Clr Drug Dosing 66.34 mL/min Estimated GFR (MDRD) > 60 (>60) mL/min BUN/Creatinine Ratio 22.5 H (14-18) Glucose 102 (80-115) mg/dL Calcium 9.4 (8.5-10.1) mg/dL Magnesium 2.0 (1.8-2.4) mg/dl Med Orders - Current: Current Medications Acetaminophen (Tylenol) 650 mg PO Q6H PRN PRN Reason: Pain/Fever Hydrocodone Bitart/Acetaminophen ([place] 325-5 Mg) 1 tab PO Q4H PRN PRN Reason: Pain (moderate 4-6) Last Admin: 09/06/18 06:32 Dose: 1 tab Al Hydroxide/Mg Hydroxide (Mag-Al Plus) 30 ml PO QID PRN PRN Reason: heartburn Last Admin: 09/04/18 09:56 Dose: 30 ml Albuterol/Ipratropium (Duoneb 3.0-0.5 Mg/3 Ml) 3 ml NEB Q4H PRN PRN Reason: Shortness Of Breath/wheezing Aripiprazole (Abilify) 20 mg PO DAILY [facility] Last Admin: 09/05/18 08:16 Dose: 20 mg Artificial Tears (Refresh Liquigel 1%) 0 ml EYEBOTH QID PRN PRN Reason: DRY EYES Ascorbic Acid (Vitamin C) 500 mg PO DAILY [facility] Last Admin: 09/05/18 08:17 Dose: 500 mg Benztropine Mesylate (Cogentin) 0.5 mg PO BID [facility] Last Admin: 09/05/18 21:12 Dose: 0.5 mg Bisacodyl (Dulcolax) 5 mg PO DAILY PRN PRN Reason: Constipation Calcium Carbonate/Glycine (Tums) 1,000 mg PO Q2HR PRN PRN Reason: Indigestion Last Admin: 09/04/18 14:23 Dose: 1,000 mg Cholecalciferol (Vitamin D3) 2,000 units PO DAILY [facility] Last Admin: 09/05/18 08:16 Dose: 2,000 units Clonazepam (Klonopin) 0.5 mg PO TID PRN PRN Reason: Anxiety Last Admin: 08/31/18 16:49 Dose: 0.5 mg Clotrimazole (Lotrimin Af 1% Crm) 0 gm TOP BID PRN PRN Reason: ITCHING Diclofenac Sodium (Voltaren 1% Gel) 0 gm TOP QID PRN PRN Reason: JOINT PAIN Last Admin: 09/05/18 22:43 Dose: 6 gm Docusate Sodium (Colace) 100 mg PO BID PRN PRN Reason: Constipation Last Admin: 08/30/18 04:58 Dose: 100 mg Docusate Sodium (Colace) 100 mg PO BID [facility] Last Admin: 09/05/18 21:11 Dose: 100 mg Enoxaparin Sodium (Lovenox) 40 mg SUBCUT DAILY [facility] Last Admin: 09/05/18 08:17 Dose: 40 mg Famotidine (Pepcid) 20 mg PO BID [facility] Last Admin: 09/05/18 21:13 Dose: 20 mg Fentanyl (Duragesic) 12 mcg TOP Q72H [facility] Last Admin: 09/04/18 10:41 Dose: 12 mcg Ferrous Sulfate (Ferrous Sulfate) 325 mg PO BID [facility] Last Admin: 09/05/18 21:12 Dose: 325 mg Folic Acid (Folic Acid) 1 mg PO DAILY [facility] Last Admin: 09/05/18 08:17 Dose: 1 mg Gabapentin (Neurontin) 1,200 mg PO BEDTIME [facility] Last Admin: 09/05/18 21:13 Dose: 1,200 mg Gabapentin (Neurontin) 600 mg PO QAM [facility] Last Admin: 09/05/18 08:16 Dose: 600 mg Gabapentin (Neurontin) 600 mg PO ACDINNER [facility] Last Admin: 09/05/18 17:04 Dose: 600 mg Hydralazine HCl (Apresoline) 20 mg IVPUSH Q4H PRN PRN Reason: Hypertension Promethazine HCl 6.25 mg/ (Sodium Chloride) 50.25 mls @ 100 mls/hr IV Q6H PRN PRN Reason: Nausea/Vomiting Levothyroxine Sodium (Levothyroxine) 175 mcg PO ACBREAKFAST [facility] Last Admin: 09/06/18 06:31 Dose: 175 mcg Lorazepam (Ativan) 2 mg IVPUSH Q4H PRN PRN Reason: Seizures Lorazepam (Ativan) 1 mg IV Q6H PRN PRN Reason: Anxiety Last Admin: 08/31/18 18:31 Dose: 1 mg Magnesium Sulfate (Pharmacy To Dose - Magnesium Replacement) 1 dose .XX ASDIRECTED [facility] Metoprolol Tartrate (Lopressor) 5 mg IVPUSH Q4H PRN PRN Reason: Tachycardia Miscellaneous Information (Remove Patch) 1 ea TRDERM Q72H [facility] Last Admin: 09/04/18 10:41 Dose: 1 ea Nitroglycerin (Nitrostat) 0.4 mg SL DAILY PRN PRN Reason: Chest Pain Nystatin (Nystop) 0 gm TOP BID [facility] Last Admin: 09/05/18 21:13 Dose: 1 applic Ondansetron HCl (Zofran) 4 mg IV Q6H PRN PRN Reason: Nausea/Vomiting Last Admin: 09/04/18 19:11 Dose: 4 mg Menthol/Zinc Oxide [ Remedy Calazime Protect Paste] 113 Gm 0 each TOP ASDIRECTED [facility] Vortioxetine Hydrobromide [ Trintellix] 20 Mg 0 each PO DAILY [facility] Last Admin: 09/05/18 08:18 Dose: Not Given Polyethylene Glycol (Miralax) 17 gm PO BEDTIME [facility] Last Admin: 09/05/18 21:11 Dose: 17 gm Potassium Chloride (Pharmacy To Dose - Potassium Replacement) 1 dose .XX ASDIRECTED [facility] Potassium Chloride (Klor-Con 10) 10 meq PO DAILY [facility] Last Admin: 09/05/18 08:16 Dose: 10 meq Senna/Docusate Sodium (Senna Plus) 1 tab PO BID [facility] Last Admin: 09/05/18 21:12 Dose: 1 tab Sodium Chloride (Saline Flush) 10 ml FLUSH ASDIRECTED PRN PRN Reason: Keep Vein Open Trazodone HCl (Trazodone) 125 mg PO BEDTIME [facility] Last Admin: 09/05/18 21:13 Dose: 125 mg Triamcinolone Acetonide (Triamcinolone Acetonide 0.1% Crm) 0 gm TOP QID PRN PRN Reason: DRYNESS Discontinued Medications Acetaminophen (Tylenol) 650 mg PO TID PRN PRN Reason: Pain Ascorbic Acid (Vitamin C) 250 mg PO BID [facility] Stop: 08/31/18 22:00 Last Admin: 08/31/18 21:10 Dose: 250 mg Clonazepam (Klonopin) 2 mg PO ONETIME ONE Stop: 08/28/18 22:54 Last Admin: 08/30/18 02:19 Dose: Not Given Diclofenac Sodium (Voltaren 1% Gel) 100 gm TOP ASDIRECTED [facility] Enoxaparin Sodium (Lovenox) 30 mg SUBCUT DAILY [facility] Gabapentin (Neurontin) 1,200 mg PO ONETIME ONE Stop: 08/28/18 22:54 Last Admin: 08/28/18 23:44 Dose: 1,200 mg Hydromorphone HCl (Dilaudid) 1 mg IVPUSH ONETIME ONE Stop: 08/28/18 20:15 Last Admin: 08/28/18 20:46 Dose: 1 mg Hydromorphone HCl (Dilaudid) 0.5 mg IVPUSH Q4H PRN PRN Reason: Pain Hydromorphone HCl (Dilaudid) 0.25 mg IVPUSH Q2H PRN PRN Reason: Pain (severe 7-10) Last Admin: 08/29/18 11:03 Dose: 0.25 mg Sodium Chloride (Normal Saline) 1,000 mls @ 150 mls/hr IV ASDIRECTED [facility] Last Admin: 08/28/18 20:44 Dose: 150 mls/hr Influenza Virus Vaccine (Pharmacy To Dose - Influenza Vaccine) 1 each IM ONETIME ONE Stop: 08/28/18 23:13 Influenza Virus Vaccine (Fluzone Quad [id number] Syringe) 60 mcg IM .ONCE ONE Stop: 08/29/18 09:01 Influenza Virus Vaccine (Fluzone Quad [id number] Syringe) 60 mcg IM .ONCE ONE Stop: 08/31/18 11:46 Last Admin: 08/31/18 16:20 Dose: 60 mcg Neomycin/Polymyxin/Bacitracin (Neosporin Oint) 0 gm TOP BID [facility] Last Admin: 09/03/18 12:26 Dose: Not Given Non-Formulary Medication (Clotrimazole) 15 gram TOP ASDIRECTED [facility] Nystatin (Nystop) 0 gm TOP QID [facility] Last Admin: 09/03/18 10:09 Dose: 1 applic Ondansetron HCl (Zofran) 4 mg IVPUSH ONETIME ONE Stop: 08/28/18 20:16 Last Admin: 08/28/18 20:44 Dose: 4 mg Pantoprazole Sodium (Protonix Iv) 40 mg IVPUSH ONETIME ONE Stop: 09/04/18 14:11 Last Admin: 09/04/18 14:23 Dose: 40 mg Polyethylene Glycol (Miralax) 17 gm PO ONETIME ONE Stop: 08/28/18 22:54 Last Admin: 08/28/18 23:44 Dose: 17 gm - Exam Quality Assessment: Reports: DVT Prophylaxis General: Reports: Alert, Oriented, Cooperative, No Acute Distress HEENT: Reports: Pupils Equal, Pupils Reactive, EOMI, Mucous Membr. Moist/[place] Neck: Reports: Supple, Trachea Midline, No JVD Lungs: Reports: Clear to Auscultation, Normal Respiratory Effort Cardiovascular: Reports: Regular Rate, Regular Rhythm GI/Abdominal Exam: Normal Bowel Sounds, Soft, Non-Tender, No Distention, No Abnormal Bruit (Female) Exam: Deferred Rectal (Female) Exam: Deferred Back Exam: Reports: Normal Inspection, Decreased Range of Motion Extremities: Normal Inspection, Non-Tender, No Pedal Edema, Normal Capillary Refill, Limited Range of Motion Skin: Reports: Warm, Dry, Intact Wound/Incisions: Reports: Dressing Dry and Intact, No Drainage Neurological: Reports: No New Focal Deficit Psy/Mental Status: Reports: Alert, Normal Affect, Normal Mood
[2018-09-06] MEDS: Gabapentin 600 MG Tab PO SCH (08:22)
[2018-09-06] MEDS: Cholecalciferol (Vitamin D3) 1,000 Unit Tab PO SCH (08:22)
[2018-09-06] MEDS: Folic Acid 1 MG Tab PO SCH (08:23)
[2018-09-06] MEDS: Benztropine 1 MG Tab PO SCH (08:23)
[2018-09-06] MEDS: Famotidine 20 MG Tab PO SCH (08:24)
[2018-09-06] MEDS: Ascorbic Acid 500 MG Tab PO SCH (08:25)
[2018-09-06] MEDS: ARIPiprazole 10 MG Tab PO SCH (08:25)
[2018-09-06] MEDS: Ferrous Sulfate 325 MG Tab PO SCH (08:25)
[2018-09-06] MEDS: Potassium Chloride 10 MEQ Tab.ER PO SCH (08:26)
[2018-09-06] MEDS: Enoxaparin 40 MG/0.4 ML Syringe SUBCUT SCH (08:27)
[2018-09-06] MEDS: Nystatin Topical Powder 15 GM Bottle TOP SCH (08:28)
[2018-09-06] MEDS: Docusate Sodium 100 MG Cap PO SCH (08:29)
[2018-09-06] MEDS: Vortioxetine Hydrobromide [Trintellix] 20 MG PO SCH (08:29)
[2018-09-06 12:44] VITALS: BP 107/83
== END 2018-09-06 13:06 | DRG 554 ==
LOC: JD.ED 20:06 → JD.MS 22:37
PROVIDERS: ADMIT Internal Medicine; ATTEND Internal Medicine
DX: M15.9 Polyosteoarthritis, unspecified (principal); F11.20 Opioid dependence, uncomplicated; S70.01XA Contusion of right hip, initial encounter; S40.011A Contusion of right shoulder, initial encounter; W18.30XA Fall on same level, unspecified, initial encounter; R29.6 Repeated falls; M50.30 Other cervical disc degeneration, unspecified cervical region; F20.9 Schizophrenia, unspecified; K21.9 Gastro-esophageal reflux disease without esophagitis; G24.01 Drug induced subacute dyskinesia; G89.4 Chronic pain syndrome; G47.30 Sleep apnea, unspecified; E78.00 Pure hypercholesterolemia, unspecified; L98.499 Non-pressure chronic ulcer of skin of other sites with unspecified severity; E78.5 Hyperlipidemia, unspecified; G47.33 Obstructive sleep apnea (adult) (pediatric); M79.7 Fibromyalgia; M81.0 Age-related osteoporosis without current pathological fracture; F41.0 Panic disorder [episodic paroxysmal anxiety]; I10 Essential (primary) hypertension; R32 Unspecified urinary incontinence; F41.9 Anxiety disorder, unspecified; F31.9 Bipolar disorder, unspecified; R06.02 Shortness of breath; M54.5 Low back pain; R53.81 Other malaise; M25.551 Pain in right hip; M25.562 Pain in left knee; M25.561 Pain in right knee; R53.1 Weakness; R26.2 Difficulty in walking, not elsewhere classified; E03.9 Hypothyroidism, unspecified; E66.9 Obesity, unspecified; D64.9 Anemia, unspecified; H54.7 Unspecified visual loss; Z88.5 Allergy status to narcotic agent; Z88.8 Allergy status to other drugs, medicaments and biological substances; Z79.899 Other long term (current) drug therapy; Z79.890 Hormone replacement therapy; Z87.891 Personal history of nicotine dependence; Z60.9 Problem related to social environment, unspecified
CPT/HCPCS: 36415; 72170; 73060; 73552; 80053; 81001; 82550; 85007; 85027; 85610; 85730; 86140; 86850; 86900; 86901; 93005; 96361; 96374; 96375; 99285; J1170; J2405; J7040; 71045; 71045-26; 80048; 82306; 83036; 83735; 84484; 85025; 90686; 93010; 97110-GO; 97110-GP; 97161-GP; 97166-GO; 97530-GO; 97530-GP; A9270-GY; C9113; G0008; J1650; J2060